=== PATIENT | male | born 1970 | race Caucasian/White ===

== ENCOUNTER 2020-12-24 07:02 | Outpatient (REF) | payer OTHER, SELFPAY ==
[2020-12-24 11:03] LABS: MANUAL DIFF FLAG NO
[2020-12-24 11:11] LABS: Basophils Absolute Auto 0.1 X10*3/uL (0.0-0.2); Basophils Percent Auto 1.1 % (0-2); Eosinophils Absolute Auto 0.4 X10*3/uL (0.0-0.4); Hemoglobin 14.3 g/dl (14.0-18.0); Imm Gran Abs Auto 0.02 X10*3/uL (0.00-0.03); Imm Gran Pct Auto 0.2 % (0.0-0.4); Lymphocytes Absolute Auto 2.6 X10*3/uL (1.2-4.9); Lymphocytes Percent Auto 31.8 % (20-40); Mean Corpuscular Hemoglobin 30.4 pg (27.0-33.0); Mean Corpuscular Volume 89.4 fL (80-98); Mean Platelet Volume 9.9 fL (9.4-12.4); Monocytes Absolute Auto 0.8 X10*3/uL (0.1-1.2); Monocytes Percent Auto 10.4 % (2-11); Neutrophils Absolute Auto 4.1 X10*3/uL (2.0-8.3); Neutrophils Percent Auto 51.5 % (45-73); Platelet Count 293 X10*3/uL (160-400); Red Cell Distribution Width 12.8 % (11.0-16.0)
[2020-12-24 11:22] LABS: Glucose Urine UA NEG (NEG); Leukocyte Esterase Urine NEG (NEG); Nitrite Urine NEG (NEG); Specific Gravity - Urine >= 1.030 (1.005-1.025); Urine Blood TRACE (NEG); Urine Ketones NEG (NEG); Urine Protein NEG (NEG-TRACE)
[2020-12-24 11:24] LABS: Appearance Urine CLEAR; Color Urine YELLOW
[2020-12-24 11:32] LABS: Alanine Aminotransferase 15 U/L (0-40); Albumin Level 4.5 g/dL (3.5-5.0); Alkaline Phosphatase 62 U/L (39-117); Anion Gap 12 (12-20); Aspartate Amino Transferase 14 U/L (5-37); Bilirubin Total 0.6 mg/dL (0.0-1.0); Blood Urea Nitrogen 14 mg/dL (9-16); Calcium 8.9 mg/dL (8.4-10.2); Carbon Dioxide 31 mmol/L (22-29); Chloride 104 mmol/L (96-108); Cholesterol 135 mg/dL; Estimated Glomerular Filt Rate > 60; Glucose Fasting 101 mg/dL (60-99); HDL Cholesterol 34 mg/dL; LDL Cholesterol Calculated 82 mg/dl; Potassium 4.3 mmol/L (3.3-5.1); Sodium 143 mmol/L (135-145); Total Protein 7.1 g/dL (6.5-8.0); Triglycerides 96 mg/dL
[2020-12-24 11:42] LABS: Mucus Urine TRACE /LPF; RBC Urine 0-2 /HPF (0); WBC Urine 0 /HPF (0-4)
[2020-12-24 11:55] LABS: Prostate Specific Antigen Scr 1.65 ng/mL (<0.05-4.0)
== END 2020-12-24 07:03 | disposition home or self-care (01) ==
LOC: HO.HMGCLDS 07:02
PROVIDERS: PCP Internal Medicine; Visit Provider Internal Medicine
DX: E78.5 Hyperlipidemia, unspecified (principal); F32.9 Major depressive disorder, single episode, unspecified; F41.9 Anxiety disorder, unspecified; I10 Essential (primary) hypertension
CPT/HCPCS: 36415; 80053; 80061; 81001; 84153; 85025

== ENCOUNTER 2022-11-14 06:04 | Outpatient (REF) | payer OTHER, SELFPAY ==
[2022-11-14 11:32] LABS: Appearance Urine Clear; Color Urine Yellow; Glucose Urine UA Negative (Negative); Leukocyte Esterase Urine Negative (Negative); Nitrite Urine Negative (Negative); UMIC TRIGGER UA YES; Urine Blood Trace (Negative); Urine Ketones Negative (Negative); Urine Protein Trace mg/dL (Neg-Trace)
[2022-11-14 11:35] LABS: Bacteria Urine None Seen (None Seen); Hyaline Casts Urine 0-2 /LPF (0-2); Squamous Epithelial Cell Urine 0-2 /HPF (0-2); WBC Urine 0-5 /HPF (0-5)
[2022-11-14 11:39] LABS: MANUAL DIFF FLAG NO
[2022-11-14 11:53] LABS: Basophils Absolute Auto 0.1 X10*3/uL (0.0-0.2); Basophils Percent Auto 1.4 % (0-2); Eosinophils Absolute Auto 0.3 X10*3/uL (0.0-0.4); Eosinophils Percent Auto 3.8 % (0-4); Hematocrit 43.5 % (42.0-52.0); Hemoglobin 14.2 g/dl (14.0-18.0); Imm Gran Abs Auto 0.02 X10*3/uL (0.00-0.03); Imm Gran Pct Auto 0.2 % (0.0-0.4); Lymphocytes Absolute Auto 2.6 X10*3/uL (1.2-4.9); Lymphocytes Percent Auto 30.2 % (20-40); Mean Corpuscular HGB Conc 32.6 g/dl (31.0-36.0); Mean Corpuscular Hemoglobin 28.6 pg (27.0-33.0); Mean Corpuscular Volume 87.5 fL (80.0-98.0); Mean Platelet Volume 10.1 fL (9.4-12.4); Monocytes Absolute Auto 0.8 X10*3/uL (0.1-1.2); Monocytes Percent Auto 9.7 % (2-11); Neutrophils Absolute Auto 4.8 x10*3/uL (2.0-8.3); Neutrophils Percent Auto 54.7 % (45-73); Platelet Count 283 X10*3/uL (160-400); Red Blood Count 4.97 X10*6/uL (4.60-5.80); Red Cell Distribution Width 13.2 % (11.0-16.0); White Blood Count 8.7 X10*3/uL (4.8-10.8)
[2022-11-14 12:25] LABS: Alanine Aminotransferase 16 U/L (0-40); Albumin Level 4.3 g/dL (3.5-5.0); Alkaline Phosphatase 66 U/L (39-117); Anion Gap 13 (12-20); Aspartate Amino Transferase 15 U/L (5-37); Bilirubin Total 0.8 mg/dL (0.0-1.0); Blood Urea Nitrogen 7 mg/dL (9-16); Carbon Dioxide 30 mmol/L (22-29); Chloride 104 mmol/L (96-108); Cholesterol 147 mg/dL; Estimated Glomerular Filt Rate > 60; Glucose Fasting 100 mg/dL (60-99); HDL Cholesterol 33 mg/dL; LDL Cholesterol Calculated 95 mg/dl; Sodium 143 mmol/L (135-145); Total Protein 6.9 g/dL (6.5-8.0); Triglycerides 97 mg/dL
[2022-11-14 12:27] LABS: PSA,Total (Free>4and<10) 3.68 ng/mL (0.00-4.00)
== END 2022-11-14 06:05 | disposition home or self-care (01) ==
LOC: HO.HMGCLDS 06:04
PROVIDERS: PCP Internal Medicine; Visit Provider Internal Medicine
DX: I10 Essential (primary) hypertension (principal); F41.9 Anxiety disorder, unspecified; F32.9 Major depressive disorder, single episode, unspecified; E78.5 Hyperlipidemia, unspecified; Z12.5 Encounter for screening for malignant neoplasm of prostate
CPT/HCPCS: 36415; 80053; 80061; 81001; 84153; 85025

== ENCOUNTER 2024-04-10 08:57 | Inpatient (IN) | payer OTHER, SELFPAY ==
[2024-04-10] VITALS (9 sets, daily range): BP systolic 133–178; BP diastolic 83–99; PULSE 61–72; RESP 16–18; TEMP 36.4–36.7; O2SAT 93–98; BMI 35.0
--- NOTE | ~2024-04-10 | CT_ITS ---
EXAMINATION: CT head for stroke CLINICAL INFORMATION: Reason for Exam dysarthria, gait issues, facial numbness COMPARISON: None. TECHNIQUE: Contiguous axial imaging was performed from the skull base to vertex without intravenous contrast. Sagittal and coronal reformatted images were obtained. This CT examination was performed using dose optimization techniques as appropriate, variously including the following: * Automated exposure control * Adjustment of mA and/or kV according to patient size (this includes techniques or standardized protocols for targeted exams where dose is matched to indication/reason for exam; i.e. extremities or head) Use of iterative reconstruction technique DLP: 743.33 mGy-cm FINDINGS: No acute osseous or soft tissue abnormality. The mastoids are clear. Complete opacification of the visualized right maxillary sinus. There is hyperostosis of the sinus wall, compatible with sequela of chronic sinusitis. There is no evidence of acute intracranial hemorrhage or territorial infarction. No abnormal mass effect or midline shift is seen. Pak to white matter differentiation is well preserved. No extra-axial fluid collections are identified. No hydrocephalus. No significant volume loss. Patchy periventricular and deep white matter hypoattenuation is consistent with moderate small vessel ischemic changes. Chronic infarct in the superior right frontal lobe. Chronic lacunar infarcts involving the left caudate head and left dorsal rosey. CT/CT head for stroke IMPRESSION: 1. No acute intracranial abnormality including hemorrhage, mass effect, hydrocephalus, or acute territorial edematous infarction. time of direct communication. 2. Moderate chronic microangiopathic white matter hypodensity, chronic right frontal lobe infarct, and chronic lacunar infarcts involving the left caudate and rosey. 3. Chronic right maxillary sinusitis Impression #1 and 2 was communicated to Angella Araiza MD on 04/10/2024 9:47 AM
--- NOTE | ~2024-04-10 | CT_ITS ---
EXAMINATION: CTA OF THE HEAD AND NECK CLINICAL INFORMATION: Dysarthria. Gait issues. Facial numbness. COMPARISON: Head CT on 04/10/2024. TECHNIQUE: Test bolus sequences followed by intravenous administration 70 mL of Omnipaque 350. Helical imaging was performed in the axial plane from the mediastinum to the skull vertex. Delayed postcontrast imaging of the head was also performed. The data was processed at the certified cytotechnologist's workstation for generation of MIP sequences. Three-dimensional volume rendered reformatted images were also generated at an offline 3-D workstation. Stenoses are assessed in accordance with NASCET criteria unless otherwise indicated. This CT examination was performed using dose optimization techniques as appropriate, variously including the following: *Automated exposure control *Adjustment of mA and/or kV according to patient size (this includes techniques or standardized protocols for targeted exams where dose is matched to indication/reason for exam; i.e. extremities or head) *Use of iterative reconstruction technique DLP: 743 mGy-cm. FINDINGS: CTA neck: The imaged aortic arch and origins of the great vessels are normal. The common carotid arteries are widely patent. The carotid bifurcations are relatively normal with mild atherosclerotic wall calcifications. Less than 50% stenosis at the origin of the left internal carotid artery with mild atheromatous disease. The cervical internal carotid arteries are otherwise normal in caliber. The vertebral arteries opacify normally and are of normal caliber. Mucosal opacification of the right maxillary sinus with chronic sclerotic wall thickening. Soft tissue abnormality extends into the right middle meatus as well Multilevel cervical spondylosis noted, more significant at the C5-C6 and C6-C7 levels with a reversal of the normal cervical lordosis. There are moderate degenerative changes of the temporomandibular joints. The imaged portions of the lungs are clear. CTA head: The intradural vertebral arteries and basilar artery are normal. There is a focal severe stenosis in the proximal P4 segment on the left side. Moderate focal stenosis also visible in the P3 segment of the right DRAPERY INSPECTOR. The internal carotid arteries are of normal caliber. Mild multifocal stenoses visible in the A2 segments bilaterally. 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 There is no abnormal parenchymal or leptomeningeal enhancement. The venous sinuses opacify normally. CT/CT angio head neck stroke IMPRESSION: No hemodynamically significant stenosis in the cervical vasculature. Severe focal stenosis in one of the proximal P4 branches arising from the left posterior cerebral artery. Moderate stenosis in the P3 segment of the right DRAPERY INSPECTOR. Mild multifocal stenoses in the A2 segments of the anterior cerebral arteries. 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 No large territorial infarction. The possibility of a focal acute ischemic process cannot be ruled out on the basis of this study. If there is a high-level suspicion for an underlying acute infarct, recommend further evaluation with a follow-up MRI of the brain. Mucosal opacification of the right maxillary sinus with soft tissue extending into the right middle meatus. Chronic sclerotic wall thickening. The possibility of an obstructing lesion at the right maxillary sinus ostium cannot be ruled out. Recommend follow-up ENT evaluation to guide further management.
--- NOTE | ~2024-04-10 | MR_ITS ---
EXAMINATION: MR BRAIN WITHOUT CONTRAST CLINICAL INFORMATION: Slurred speech. Left-sided weakness. Cerebrovascular accident. COMPARISON: CTA head and neck from 04/10/2024. TECHNIQUE: MRI of the brain was obtained using routine sequences without contrast. FINDINGS: Patchy regions of diffusion-weighted hyperintensity with slightly low to pseudonormalized values on the ADC map in the right tena radiata/lentiform nucleus as well as within the posterior limb of the left internal capsule. Associated T2 FLAIR hyperintensities. No evidence of hemorrhagic transformation. No additional restricted diffusion. No evidence of acute hemorrhagic products on heme-sensitive imaging. Small scattered foci of susceptibility artifact within the bilateral cerebral hemispheres and left cerebellar hemisphere consistent with petechial microhemorrhage. Chronic region of encephalomalacia in the right superior frontal gyrus. Chronic lacunar infarcts of the left caudate head, left lentiform nucleus, right thalamus, and rosey. Scattered and partially confluent periventricular, deep white matter, and brainstem T2 FLAIR hyperintensities consistent with moderate underlying microangiopathy. Proportional prominence of the ventricles and sulcal spaces without evidence of obstructive hydrocephalus. No abnormal mass effect. No midline shift. Normal appearance of the pituitary gland. Normal positioning of the cerebellar tonsils. Normal arterial and venous vascular flow voids are present. Normal, homogeneous marrow signal. Complete opacification of the right maxillary sinus with restricted diffusion of the central contents. Mild mucosal thickening of the remaining paranasal sinuses. Prominent leftward nasal septal deviation. No signal abnormalities within the mastoids. Moderate degenerative arthropathy of the temporomandibular joints. MR/MR head/brain wo con IMPRESSION: 1. Late acute to subacute infarcts of the right tena radiata/lentiform nucleus and posterior limb of the left internal capsule. No evidence of hemorrhagic transformation. 2. Chronic region of encephalomalacia in the right superior frontal gyrus. Chronic lacunar infarcts of the deep nuclei and brainstem. Moderate underlying microangiopathy and generalized cerebral volume loss. 3. Right maxillary sinus disease with characteristics of active sinusitis.
--- NOTE | 2024-04-10 07:00 | CA_ITS ---
Transthoracic Echocardiogram Patient (Last, First, Middle): Saman Browne, Gender: Male Date of : 1970 Age: 53 Procedure Date: 04/10/2024 Procedure Type: Transthoracic Echocardiogram Location: ER Height: 180.34 cm Weight: 113.85 kg BSA: 2.32 m2 Heart Rate: 64 bpm BP: 162 / 88 mmHg Anodiser: ADMAS Constantino MD: Lynn PIÑA Human Resources Hr Representative: Gordo Baltazar MD Symptoms: ?CVA Study Quality: Adequate w/Contrast ECG Rhythm: Sinus Conclusions: - 1. Mildly reduced LV ejection fraction 45-50% with mild LVH 2. Cardiac valvular Dopplers within normal limits 3. Upper limits of normal ascending aortic size 4. No gross pericardial effusion Findings Procedure Information Contrast agent, definity, is being given per protocol without apparent complications. Left Ventricle Normal left ventricular cavity size. There is mildly increased left ventricular wall thickness. The left ventricular systolic function is mildly decreased. The visually estimated ejection fraction is between 45-50%. There is moderate septal asymmetric hypertrophy. Wall Motion Rest Echo Findings The basal inferoseptal segment is hypokinetic. The basal inferior segment is akinetic. All other scored wall segments showed normal motion. Right Ventricle Normal right ventricular cavity size and systolic function. Atria The left atrium is likely dilated. There is no evidence of interatrial shunt by agitated saline. The right atrium is normal in size. Negative Contrast in RA?. Aortic Valve Normal aortic valve structure and function. There is no aortic valve stenosis. The peak aortic velocity is 1.76 m/s with a calculated peak gradient of 12 mmHg. The mean gradient is 8 mmHg. The aortic valve area is 2.48 cm2. There is no aortic valve regurgitation. Mitral Valve There is mild anterior and moderate posterior mitral leaflet thickening. There is mild mitral annular calcification. There is trace mitral valve regurgitation. There is no mitral valve stenosis. Pulmonic Valve The pulmonic valve is likely normal. Tricuspid Valve Normal tricuspid valve structure. Tricuspid regurgitation envelope is inadequate for calculation of right ventricular systolic pressure. Normal right atrial pressure. Great Vessels The pulmonary artery was not well visualized. Small plaque is seen in the sino tubular ridge. Venous The inferior vena cava is normal in size and collapses greater than 50% with inspiration. Pericardium/Pleural There is no evidence of pericardial effusion. Prior Study Comparison No significant change compared to prior study dated: 01/23/2019. Measurements 2D Linear Measurements IVSd: 1.53 0.6-0.9/0.6-1.0 cm LVIDd: 5.69 3.9-5.3/4.2-5.9 cm LVIDd Index: 2.45 2.4-3.2/2.2-3.1 cm/m2 LVIDs: 4.30 2.0-3.6 cm LVPWd: 1.25 0.7-1.1 cm LA Diam: 3.70 2.7-3.8/3.0-4.0 cm LAIDs Index: 1.59 1.5-2.3 cm/m2 LV Mass: 440.36 67-162/88-224 g LV Mass Index: 189.81 43-95/49-115 g/m2 LVOT Diam: 2.40 3.0+(-)1.3 cm 2D Systolic Function EF 4C: 47.40 >55% EF 2C: 48.40 >55% EF BiP: 47.30 >55% Mitral Valve MV Pk E: 0.65 MV PK A: 0.66 MV Decel Time: 237.00 E/A: 1.00 E'Lateral: 6.92 E'Medial: 6.31 E/E' Med: 10.30 E/E' Lat: 9.40 PHT: 69.00 MVA PHT: 3.19 Decel [place]: 2.75 Aortic Valve AoV Pk Yamil: 1.76 AoV Mn Yamil: 1.33 AoV VTI: 0.39 AoV Pk Grad: 12.00 Aov Mn Grad: 8.00 AV Cont.VTI: 2.48 LVOT LVOT Pk Yamil: 1.07 LVOT Mn Yamil: 0.73 LVOT VTI: 0.21 LVOT Pk Grad: 5.00 LVOT Mn Grad: 3.00 LVOT Diam: 2.40 LVOT Area: 4.52 Diastolic Function MV Pk E: 0.65 MV Pk A: 0.66 E/A: 1.00 E'Medial: 6.31 E/E' Med: 10.30 E' Laterial: 6.92 E/E' Lat: 9.40 Right Ventricle TAPSE (mm): 22.90 TVS' Yamil: 12.40 Tricuspid Valve RA Press: 3.00 Great Vessels Aorta Sinus of Valsalva: 3.80 2.0-3.5 cm Ao Asc: 3.50 2.1-3.4 cm Pulmonary Valve PV Pk Yamil: 1.15 Peak PV Grad: 5.00 Updated in Other Vendor System with Status of Final Gordo Baltazar MD electronically signed on 04/10/2024 4:23:42 PM with status of Final
--- NOTE | 2024-04-10 09:09 | ECG_ITS ---
Test Reason : STROKE SYMPTOMS Blood Pressure : / mmHG Vent. Rate : 065 BPM Atrial Rate : 065 BPM P-R Int : 152 ms QRS Dur : 100 ms QT Int : 428 ms P-R-T Axes : 050 020 176 degrees QTc Int : 445 ms Normal sinus rhythm ST & T wave abnormality, consider inferolateral ischemia Abnormal ECG When compared with ECG of 17-JUL-2019 17:14, No significant change was found Referred By: Angella Araiza Electronically Signed By:ZULAY BARRETT MD
[2024-04-10 09:22] LABS: MANUAL DIFF FLAG NO
[2024-04-10 09:23] LABS: Basophils Absolute Auto 0.1 X10*3/uL (0.0-0.2); Basophils Percent Auto 0.8 % (0-2); Eosinophils Absolute Auto 0.3 X10*3/uL (0.0-0.4); Eosinophils Percent Auto 2.7 % (0-4); Hematocrit 41.2 % (42.0-52.0); Hemoglobin 14.1 g/dl (14.0-18.0); Imm Gran Abs Auto 0.02 X10*3/uL (0.00-0.03); Imm Gran Pct Auto 0.2 % (0.0-0.4); Lymphocytes Percent Auto 31.1 % (20-40); Mean Corpuscular HGB Conc 34.2 g/dl (31.0-36.0); Mean Corpuscular Volume 84.8 fL (80.0-98.0); Mean Platelet Volume 8.9 fL (9.4-12.4); Monocytes Absolute Auto 0.9 X10*3/uL (0.1-1.2); Monocytes Percent Auto 8.8 % (2-11); Neutrophils Absolute Auto 5.5 x10*3/uL (2.0-8.3); Neutrophils Percent Auto 56.4 % (45-73); Platelet Count 272 X10*3/uL (160-400); Red Blood Count 4.86 X10*6/uL (4.60-5.80); White Blood Count 9.7 X10*3/uL (4.8-10.8)
[2024-04-10 09:29] LABS: Prothrombin Time 11.9 SEC (11.1-13.3)
[2024-04-10 09:31] LABS: Partial Thromboplastin Time 31.5 SEC (26.0-36.8)
--- NOTE | 2024-04-10 09:34 | ED_ITS ---
HPI - Neuro Symptoms/Deficit General Chief Complaint: Stroke Stated Complaint: quest of stroke systems Time Seen by Provider: 04/10/24 09:03 Source: patient Mode of arrival: ambulatory Limitations: no limitations History of Present Illness ED Provider: FLORES OROZCO Narrative: 53 yo male with PMH of HTN notes he woke up this morning at 6/630am feeling off he felt weaker than usual and noted that he felt like he was leaning to the right and his face on the right felt tingly. No recent trauma or falls. When he got to work his co-workers noted his speech was slurred so they told him to come to the ED. He has never had this happen before. He did get up at 230am to urinate but he states he was too sleepy to notice anything. He woke up with symptoms this AM and new something was off. Onset (ago): unknown Last Observed Normal: 02:30 Timing confirmed by: other (self) Location: right face, dysarthria and right leg History of same: No Severity: mild Quality: weak and tingling Relieving factors: none Exacerbating factors: none Context: gradual onset On Anticoagulants: No Associated symptoms: denies other symptoms Treatments Prior to Arrival: none Related Data Previous Rx's ?Medication ?Instructions ?Recorded buspirone 10 mg tablet 10 mg PO TID #90 tabs 02/02/21 amlodipine 10 mg tablet 10 mg PO DAILY #90 tabs 05/01/22 atorvastatin 20 mg tablet 20 mg PO DAILY #90 tabs 05/01/22 lisinopril 40 mg tablet 40 mg PO DAILY #90 tabs 05/01/22 nebivolol 20 mg tablet (Bystolic) 20 mg PO DAILY #90 tabs 05/01/22 triamterene 37.5 1 tab PO DAILY #90 tabs 05/01/22 mg-hydrochlorothiazide 25 mg tablet Allergies Allergy/AdvReac Type Severity Reaction Status Date / Time citalopram AdvReac Unknown diarrhea Verified 04/10/24 09:01 Review of Systems 2 Review of Systems: Constitutional : No Fever, No Chills, No Fatigue ENT/Mouth : No sore throat, No Rhinorrhea Eyes: No Eye Pain, No Swelling, No Redness Cardiovascular : No Chest Pain, No SOB, No Dyspnea on Exertion Respiratory : No Cough, No Sputum Gastrointestinal : No Nausea, No Vomiting, No Diarrhea, No abdominal Pain Genitourinary : No Dysuria, No Urinary Frequency, No Hematuria, Musculoskeletal : No joint pain, No Myalgias, No Joint Swelling Skin : No Skin Lesions, No rash Neuro : pos Weakness, pos Numbness, No Dizziness, no Headache Psych : No Anxiety/Panic, No Depression All other systems reviewed and are negative [facility] Past Medical History Attestation statement: The following information was validated with the patient. Source: old records reviewed Medical History Annual physical exam Hyperlipidemia HTN (hypertension) Anxiety and depression Surgical History S/P cardiac cath History of meniscal tear Family History Family History Father HTN (hypertension) Stroke Mother Alcoholism Maternal Grandfather No problems noted. Maternal Grandmother No problems noted. Paternal Grandfather No problems noted. Paternal Grandmother Stroke Social History Social History Housing: Apartment Alcohol intake: current Alcohol intake frequency: holidays/special occasions only Patient Tobacco Use Status: Current everyday Tobacco user Tobacco use type: Cigarette Cigarettes Per Day: 10 Years Smoked: 20 e-Cigarette/Vaping Use: Never Used Advance Directives: No Advance Directives Information Provided: Yes service: No Current occupational status: employed Cognitive needs: No Hearing needs: No Vision needs: Yes Physical Exam 2 Vital Signs: Vital Signs: Last Vital Signs Temp 98 F 04/10/24 09:00 Pulse 65 04/10/24 10:10 Resp 16 04/10/24 10:10 BP 156/83 H 04/10/24 10:10 Pulse Ox 96 04/10/24 10:10 O2 Del Method Room Air 04/10/24 10:10 BMI result Body Mass Index 35.0 Appearance: Alert. Oriented X3. No acute distress. Eyes: Pupils equal, round and reactive to light. ENT: Pharynx normal. Neck: Normal inspection. Neck supple. CVS: Normal heart rate and rhythm. Pulses normal. Respiratory: No respiratory distress. Breath sounds normal. Abdomen: Soft and nontender. Skin: Skin warm and dry. Normal skin color. Normal skin turgor. Extremities: No lower extremity edema. No calf ttp Neuro: Oriented X 3. slurred speech, tongue deviates to the left, paresthesias to the right side of face, reports his legs feel weak, fine arts model intact Medications Administered Discontinued Medications Generic Name Dose Route Start Last Admin Trade Name Arcadio PRN Reason Stop Dose Admin Iohexol 100 ml 04/10/24 09:52 04/10/24 09:53 Iohexol 350 Mg/Ml 100 Ml Infus..Btl IV 04/10/24 09:53 70 ml ONCE ONE Administration Medical Decision Making Medical Decision Making [facility] Narrative: 53 yo male with PMH of HTN here with c/o wake up stroke presenting 3 to 3.5 hours after waking - NIH is 2 at this time will need labs, CT scan CTA and EKG. He is not a candidate for TNK given last known well was 230am and even then he is not really sure he felt okay as he was too sleepy to tell if something was wrong. At this time labs, stroke protocol CT scan and and CTA. Differential Diagnosis Differential Diagnoses: The differential diagnosis associated with the presentation includes stoke, ICH Admission/Observation Consideration of admission/observation: Escalation of care including admission/observation considered admit for stroke work up Consult Healthcare Provider Management of the patient was discussed with: Antique Repairer (Adrián castro - hold off MRI right now NIH 2 unlikely to give TNK and not in window) Lab Data [facility] Lab Attestation statement: I reviewed the patient's lab results. 04/10/24 09:16 04/10/24 09:16 Labs: Lab Results 04/10/24 04/10/24 04/10/24 Range/Units 09:16 10:14 10:15 WBC 9.7 (4.8-10.8) X10*3/uL RBC 4.86 (4.60-5.80) X10*6/uL Hgb 14.1 (14.0-18.0) g/dl Hct 41.2 L (42.0-52.0) % MCV 84.8 (80.0-98.0) fL MCH 29.0 (27.0-33.0) pg MCHC 34.2 (31.0-36.0) g/dl RDW 13.0 (11.0-16.0) % Plt Count 272 (160-400) X10*3/uL MPV 8.9 L (9.4-12.4) fL Immature Gran % (Auto) 0.2 (0.0-0.4) % Neut % (Auto) 56.4 (45-73) % Lymph % (Auto) 31.1 (20-40) % [place] % (Auto) 8.8 (2-11) % Eos % (Auto) 2.7 (0-4) % Baso % (Auto) 0.8 (0-2) % Lymph # (Auto) 3.0 (1.2-4.9) X10*3/uL [place] # (Auto) 0.9 (0.1-1.2) X10*3/uL Eos # (Auto) 0.3 (0.0-0.4) X10*3/uL Baso # (Auto) 0.1 (0.0-0.2) X10*3/uL Abs Immat Gran (auto) 0.02 (0.00-0.03) X10*3/uL Absolute Neuts (auto) 5.5 (2.0-8.3) x10*3/uL Absolute Nucleated RBC 0.000 (0.0-0.012) X10*3/uL Nucleated RBC % (auto) 0.0 (0.0-0.2) /100WBC PT 11.9 (11.1-13.3) SEC INR 1.0 (0.9-1.1) APTT 31.5 (26.0-36.8) SEC Sodium 141 (135-145) mmol/L Potassium 4.1 (3.3-5.1) mmol/L Chloride 103 (96-108) mmol/L Carbon Dioxide 27 (22-29) mmol/L Anion Gap 15 (12-20) BUN 15 (9-16) mg/dL Creatinine 0.82 (0.5-1.4) mg/dL Estim Creat Clear Calc 133.7 Estimated GFR > 60 POC Glucose 101 (60-115) mg/dL Random Glucose 105 (60-115) mg/dL Estimat Average Glucose 120 mg/dL Hemoglobin A1c % 5.8 (<6.0) % Calcium 9.6 D (8.4-10.2) mg/dL Magnesium 1.9 (1.6-2.6) mg/dL Total Bilirubin 0.5 (0.0-1.0) mg/dL Direct Bilirubin 0.1 (0.0-0.5) mg/dL AST 34 (5-37) U/L ALT 35 (0-40) U/L Alkaline Phosphatase 68 (39-117) U/L Troponin I High Sens 5.8 (<3.5-35.0) ng/L Total Protein 7.8 (6.5-8.0) g/dL Albumin 4.4 (3.5-5.0) g/dL Triglycerides 181 H (<150) mg/dL Cholesterol 113 (<200) mg/dL LDL Cholesterol, Calc 52 (<100) mg/dL HDL Cholesterol 25 L (>40) mg/dL Urine Color Yellow Urine Appearance Clear Urine pH 6.5 (5.0-9.0) Ur Specific Only >= 1.030 H (1.005-1.025) Urine Protein Negative (Neg-Trace) mg/dL Urine Glucose (UA) Negative (Negative) mg/dL Urine Ketones Negative (Negative) mg/dL Urine Blood Negative (Negative) Urine Nitrite Negative (Negative) Ur Leukocyte Esterase Negative (Negative) Ethyl Alcohol < 10 mg/dL Independent Interpretation I performed an independent interpretation of an: EKG and CT Scan (no ICH ) Interpretation: Rate: 65 Rhythm: NSR [place]: normal , LVH Normal P waves. Normal EYAL. Normal QRS complex. ST T wave : no YULISA, inverted t waves V5, V6, I and aVL, II qTC: 445 prior studies: no change from 2018 The study has been interpreted contemporaneously by me. . Radiology Impression Discussion of test interpretation with radiology: I discussed test interpretation with the radiologist and I have reviewed the radiologist's reading. Radiologist Impression: 946am - no ICH old infarcts noted External Record Review External record reviewed: Inpatient record NIH Stroke Scale Internal: Initial- Upon Arrival Level of Consciousness: Alert Level of Consciousness Questions: Answers both questions correctly Level of Consciousness Commands: Performs both tasks correctly Best Gaze: Normal Visual: No visual loss Facial Palsy: Normal Motor Arm (Right): No drift Motor Arm (Left): No drift Motor Leg (Right): No drift Motor Leg (Left): No drift Limb Ataxia: Absent Sensory: Mild to moderate sensory loss Best Language: No aphasia Dysarthia: Mild to moderate dysarthria Extinction and Inattention: No abnormality Score: 2 Critical Care Time Critical Care Time Critical Care Time: Yes Total Critical Care Time: 35 Attestation: consult, stroke protocol, admission I attest to this time spent taking care of the patient Discharge Plan Discharge Clinical Impression: Cerebrovascular accident Patient Disposition: Admitted As Inpatient Prescriptions: No Action buspirone 10 mg tablet 10 mg PO TID Qty: 90 1RF amlodipine 10 mg tablet 10 mg PO DAILY Qty: 90 3RF atorvastatin 20 mg tablet 20 mg PO DAILY Qty: 90 3RF lisinopril 40 mg tablet 40 mg PO DAILY Qty: 90 0RF Bystolic 20 mg tablet 20 mg PO DAILY Qty: 90 3RF triamterene-hydrochlorothiazid 37.5-25 mg tablet 1 tab PO DAILY Qty: 90 3RF Print Language: Icelandic
[2024-04-10 09:45] LABS: Alanine Aminotransferase 35 U/L (0-40); Albumin Level 4.4 g/dL (3.5-5.0); Alkaline Phosphatase 68 U/L (39-117); Anion Gap 15 (12-20); Aspartate Amino Transferase 34 U/L (5-37); Bilirubin Direct 0.1 mg/dL (0.0-0.5); Bilirubin Total 0.5 mg/dL (0.0-1.0); Blood Urea Nitrogen 15 mg/dL (9-16); Calcium 9.6 mg/dL (8.4-10.2); Carbon Dioxide 27 mmol/L (22-29); Chloride 103 mmol/L (96-108); Cholesterol 113 mg/dL (<200); Creatinine Clr Calc Pharmacy 133.7; Estimated Glomerular Filt Rate > 60; Ethanol < 10 mg/dL; Glucose Random 105 mg/dL (60-115); HDL Cholesterol 25 mg/dL (>40); LDL Cholesterol Calculated 52 mg/dL (<100); Magnesium 1.9 mg/dL (1.6-2.6); Potassium 4.1 mmol/L (3.3-5.1); Sodium 141 mmol/L (135-145); Total Protein 7.8 g/dL (6.5-8.0); Triglycerides 181 mg/dL (<150)
[2024-04-10 09:52] LABS: Troponin-I High Sensitivity 5.8 ng/L (<3.5-35.0)
[2024-04-10] MEDS: iohexoL 350 MG/ML 100 ML INFUS..BTL IV (09:53)
[2024-04-10 09:58] LABS: Estimated Average Glucose 120 mg/dL; Hemoglobin A1C 151.6837 umol/L; Hemoglobin A1c % 5.8 % (<6.0)
[2024-04-10 10:21] LABS: Glucose, Whole Blood 101 mg/dL (60-115)
[2024-04-10 10:24] LABS: Appearance Urine Clear; Color Urine Yellow; Glucose Urine UA Negative (Negative); Leukocyte Esterase Urine Negative (Negative); Nitrite Urine Negative (Negative); PH 6.5 (5.0-9.0); Specific Gravity - Urine >= 1.030 (1.005-1.025); Urine Blood Negative (Negative); Urine Ketones Negative (Negative); Urine Protein Negative (Neg-Trace)
[2024-04-10 10:37] LABS: Amphetamine Screen Urine Not Detected (Not Detect); Barbiturates, Urine Not Detected (Not Detect); Benzodiazepines Screen Urine Not Detected (Not Detect); Buprenorphine Scr Not Detected (Not Detect); Cannabinoid Screen Urine Not Detected (Not Detect); Cocaine Screen Urine Not Detected (Not Detect); Fentanyl, urine Not Detected (Not Detect); Methadone Screen, Urine Not Detected (Not Detect); Opiate Screen Urine Not Detected (Not Detect); Oxycodone Screen Urine Not Detected (Not Detect); Phencyclidine Screen Urine Not Detected (Not Detect)
[2024-04-10] MEDS: Aspirin 325 MG TABLET PO (10:45)
--- NOTE | 2024-04-10 12:17 | PHA.MEDREC ---
Addendum entered by Jessica Sosa [facility] 04/10/24 13:50: spoke to pt again, he was not sure of names but provided a phone number to a family member who had the Rx bottles in front of him and read off names, doses and frequencies. Original Note: Pharmacy Consult ? Medication Reconciliation Pharmacy has completed the medication reconciliation. Spoke to Patient to confirm meds. Patient states he doesn't know what medication he takes without looking at his bottles. Patient looked at the [facility] pat and confirmed Amlodipine 10 mg Daily, Atorvastatin 20 mg daily, and Triamterene 37.5 mg HCT 25 mg daily. Called Patients contact Yousuf Maddox [phone] to see if she could confirm all meds, however the phone number has been disconnected. Called [facility] in [place] [phone] to verify med list. [employer] states patient hasn't picked up any medication since 11-03-2022. wasn't able to confirm Buspirone 10 mg tid, Bystolic 20 mg daily and Lisinopril 40 daily. Only left on what patient states he is taken.
--- NOTE | 2024-04-10 12:51 | P.HPHOSP_ITS ---
History of Present Illness Date of Service: 04/10/24 Attending physician on admission: Bob Osbron Chief Complaint: Right-sided weakness Pt is a 53-year-old male with a PMH significant for HTN, HLD, cocaine-associated SD s/p cardiac cath in 2019, and alcohol use disorder 3 years sober who presents to the ED with?slurred speech and right facial numbness since this morning. Pt reports waking this morning and finding that he could not speak correctly and the right side of his face felt numb. At first thought it might be the flu or a cold so went to work where his coworkers noted he was having significantly slurred speech and sent him to the ED for further evaluation. Patient also reports having some difficulty swallowing and delayed thinking. Reports his speech has improved some especially when he speaks slowly, though right side of his face continues to be numb. 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 Also had some difficulty with walking yesterday, saying he kept hitting his left shoulder on day and doorways. Apparently did not think much of this and did not seek medical evaluation. No headache or acute vision changes. Denies numbness or tingling in extremities. No chest pain/pressure, palpitations. Denies fever, chills, nausea, vomiting, abdominal pain. Patient has been sober of cocaine and alcohol for the past 3-4 years. Attempting to quit cigarettes but still smoking half a pack daily. In the ED pt was hypertensive up to 156/83, vitals otherwise stable and WNL. Labs were significant for elevated triglycerides of 181 and HDL low at 25, otherwise grossly unremarkable. No leukocytosis. Stable H&H. No significant electrolyte abnormalities. Renal and hepatic function WNL. Troponin 5.8. UA negative for UTI. Tox screen negative. CT?of head showed no acute intracranial abnormality including hemorrhage, mass effect, hydrocephalus, or acute territorial edematous infarction. Did show moderate chronic microangiopathic white matter hypodensity, chronic right frontal lobe infarct, and chronic lacunar infarcts involving the left caudate and rosey. CTA of head found no hemodynamically significant stenosis in cervical vasculature, but showed severe focal stenosis in left posterior cerebral artery, moderate stenosis and P3 segment of right MINERAL ENGINEER, and mild multifocal stenosis of the a 2 segments of the anterior cerebral arteries. 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 Other findings include mucosal opacification of right maxillary sinus with soft tissue extending into the right middle meatus, concerning for possible obstructing lesion at right maxillary sinus. EKG demonstrated normal sinus rhythm with T-wave inversions in V5, V6, I, II, and aVL. Pt was treated with aspirin. Pt will be admitted to the hospital for slurred speech, right facial numbness, and left-sided weakness concerning for acute CVA. Review of Systems 2 Review of Systems: Slurred speech Difficulty swallowing Right facial numbness Diminished left store team leader Left-sided imbalance No headache or acute vision changes Denies chest pain/, palpitations No difficulty breathing Denies fever, chills, nausea, vomiting, abdominal pain PMFSH Medical History Alcohol use disorder Cocaine use disorder Myocardial infarction Annual physical exam Hyperlipidemia HTN (hypertension) Anxiety and depression Family History Father HTN (hypertension) Stroke Mother Alcoholism Maternal Grandfather No problems noted. Maternal Grandmother No problems noted. Paternal Grandfather No problems noted. Paternal Grandmother Stroke Surgical History S/P cardiac cath History of meniscal tear Social History Household Members: Family Housing: Apartment Do you presently have visiting nurse or other home services: No Alcohol intake: current Alcohol intake frequency: other Alcohol type: beer Patient Tobacco Use Status: Current everyday Tobacco user Tobacco use type: Cigarette Cigarettes Per Day: 10 Years Smoked: 20 Smoked in Last 30 Days: Yes e-Cigarette/Vaping Use: Never Used Patient Interested in Nicotine Replacement: Yes Use of substances other than those prescribed or required for medical reasons: No Currently Displaying Signs/Symptoms of Drug Intoxication Withdrawal: No Have you been hit, kicked, punched, or otherwise hurt by someone within the past year? If so, by whom?: No Do you feel safe in your current relationship?: Yes Is there a partner from a previous relationship who is making you feel unsafe now?: No Are you made to feel afraid or neglected: No Advance Directives: No Advance Directives Information Provided: Yes Do you have a plan to hurt others: No Plan Recently lost weight without trying: No Nutrition Risks: No Nutritional Risk Poor oral hygiene: No service: No Current occupational status: employed Cognitive needs: No Hearing needs: No Vision needs: Yes Meds Allergies Allergy/AdvReac Type Severity Reaction Status Date / Time citalopram AdvReac Unknown diarrhea Verified 04/10/24 09:01 Home Medications ?Medication ?Instructions ?Recorded ?Confirmed ?Last Taken ?Type buspirone 5 mg tablet 5 mg PO TID 04/10/24 04/10/24 Unknown History lisinopril 40 mg tablet 40 mg PO DAILY 04/10/24 04/10/24 Unknown History nebivolol 20 mg tablet 20 mg PO DAILY 04/10/24 04/10/24 Unknown History Physical Exam 2 Vital Signs and Narrative: Vital Signs: Last Vital Signs Temp 98.1 F 04/10/24 12:18 Pulse 61 04/10/24 12:18 Resp 18 04/10/24 12:18 BP 151/87 H 04/10/24 12:18 Pulse Ox 96 04/10/24 12:18 O2 Del Method Room Air 04/10/24 12:18 BMI result Body Mass Index 35.0 Constitutional: Alert, in no acute distress. Mental Status: Oriented to person, place and time. Eyes: Pupils are equal, round, and reactive to light. Ear, Nose, and Throat: Oropharynx clear, mucous membranes moist. Ears and nose without deformities. Trachea midline. Respiratory: Clear to auscultation bilaterally. No wheezing, rales, or rhonchi. Cardiovascular: S1, S2 regular. No murmurs, rubs, or gallops. Gastrointestinal: Abdomen soft, non-tender, non-distended. Normal bowel sounds. Neurologic: Minor slurred speech. No facial droop or tounge deviation noted. Diminished sensation to light touch of right face. Preserved sensation to light touch of upper and lower extremities bilaterally. Diminished 4/5 left store team leader. Strength of upper and lower extremities appears equal and symmetrical bilaterally . Skin: Warm, dry. Musculoskeletal: No cyanosis or clubbing. Extremities: No edema. Psychiatric: Normal mood and affect. Results Labs 04/10/24 09:16 04/10/24 09:16 Labs: Laboratory Results - last 24 hr 04/10/24 04/10/24 04/10/24 09:16 10:14 10:15 MCV 84.8 MCH 29.0 MCHC 34.2 RDW 13.0 Plt Count 272 MPV 8.9 L Immature Gran % (Auto) 0.2 Neut % (Auto) 56.4 Lymph % (Auto) 31.1 Cavalier % (Auto) 8.8 Eos % (Auto) 2.7 Baso % (Auto) 0.8 Lymph # (Auto) 3.0 Cavalier # (Auto) 0.9 Eos # (Auto) 0.3 Baso # (Auto) 0.1 Abs Immat Gran (auto) 0.02 Absolute Neuts (auto) 5.5 Absolute Nucleated RBC 0.000 Nucleated RBC % (auto) 0.0 PT 11.9 INR 1.0 APTT 31.5 Anion Gap 15 Estim Creat Clear Calc 133.7 Estimated GFR > 60 POC Glucose 101 Random Glucose 105 Estimat Average Glucose 120 Hemoglobin A1c % 5.8 Calcium 9.6 D Magnesium 1.9 Total Bilirubin 0.5 Direct Bilirubin 0.1 AST 34 ALT 35 Alkaline Phosphatase 68 Troponin I High Sens 5.8 Total Protein 7.8 Albumin 4.4 Triglycerides 181 H Cholesterol 113 LDL Cholesterol, Calc 52 HDL Cholesterol 25 L Urine Color Yellow Urine Appearance Clear Urine pH 6.5 Ur Specific [place] >= 1.030 H Urine Protein Negative Urine Glucose (UA) Negative Urine Ketones Negative Urine Blood Negative Urine Nitrite Negative Ur Leukocyte Esterase Negative Urine Opiates Screen Not Detected Ur Buprenorphine Scrn Not Detected Ur Oxycodone Screen Not Detected Urine Methadone Screen Not Detected Urine Fentanyl Screen Not Detected Ur Barbiturates Screen Not Detected Ur Phencyclidine Scrn Not Detected Ur Amphetamines Screen Not Detected U Benzodiazepines Scrn Not Detected Urine Cocaine Screen Not Detected U Marijuana (THC) Screen Not Detected Ethyl Alcohol < 10 Imaging Radiologist's Impressions: Impressions Head CT 04/10/24 09:31 IMPRESSION: 1. No acute intracranial abnormality including hemorrhage, mass effect, hydrocephalus, or acute territorial edematous infarction. time of direct communication. 2. Moderate chronic microangiopathic white matter hypodensity, chronic right frontal lobe infarct, and chronic lacunar infarcts involving the left caudate and rosey. 3. Chronic right maxillary sinusitis Impression #1 and 2 was communicated to Angella Araiza MD on 04/10/2024 9:47 AM Head/Neck CTA 04/10/24 09:51 IMPRESSION: No hemodynamically significant stenosis in the cervical vasculature. Severe focal stenosis in one of the proximal P4 branches arising from the left posterior cerebral artery. Moderate stenosis in the P3 segment of the right MINERAL ENGINEER. Mild multifocal stenoses in the A2 segments of the anterior cerebral arteries. 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 No large territorial infarction. The possibility of a focal acute ischemic process cannot be ruled out on the basis of this study. If there is a high-level suspicion for an underlying acute infarct, recommend further evaluation with a follow-up MRI of the brain. Mucosal opacification of the right maxillary sinus with soft tissue extending into the right middle meatus. Chronic sclerotic wall thickening. The possibility of an obstructing lesion at the right maxillary sinus ostium cannot be ruled out. Recommend follow-up ENT evaluation to guide further management. Assessment and Plan (1) Left-sided weakness: Status: Acute Plan Pt is a 53-year-old male with a PMH significant for HTN, HLD, cocaine-associated SD s/p cardiac cath in 2019, and alcohol use disorder 3 years sober who presents to the ED with?slurred speech and right facial numbness since this morning. Pt will be admitted to the hospital for slurred speech, right facial numbness, and left-sided weakness concerning for acute CVA. Slurred speech, right facial numbness, left-sided weakness Concerning for CVA CT of head negative for acute intracranial abnormality, but showing chronic lacunar infarcts CTA of head/neck showing severe left posterior cerebral artery stenosis, moderate right MINERAL ENGINEER stenosis, and mild anterior cerebral artery stenosis Pt not back to baseline Aspirin 81 mg daily Increase atorvastatin 40 mg daily MRI of head/brain Echocardiogram with bubble study PT/OT and speech evaluation Neurology consult Cardiac diet Monitor on telemetry HTN Hold amlodipine, lisinopril, nebivolol, and tramterene-hydrochlorothiazide for permissive hypertension for now Resume as warranted DNR/DNI, verified with pt Attending:?Dr. Osborn DVT Prophylaxis: Lovenox Pt will require a hospitalization of at least two nights for treatment and further evaluation of slurred speech, right facial numbness, and left-sided weakness concerning for acute CVA. Pt will require close monitoring of cardiac function, further imaging/workup, and specialist consultation with neurology and PT/OT. Quality Stroke Does the patient have a stroke diagnosis?: Yes Reason for No Anti-thrombotic by Day Two: Contraindicated (Pt outside of tNK therapeutic window) VTE Prior VTE?: No VTE Risk Level:: Medical - moderate - high VTE Device Contraindication: Treatment Not Indicated VTE Drug Contraindication: N/A - Med Ordered
[2024-04-10] MEDS: Nicotine 21 MG PATCH.TD24 TRANSDERMA (14:17)
[2024-04-10] MEDS: Enoxaparin Sodium 40 MG/0.4 ML SYRINGE SUBCUT (14:18)
[2024-04-10] MEDS: 0.9 % Sodium Chloride Flush 3 ML SYRINGE IVFLUSH (14:26)
--- NOTE | 2024-04-10 15:40 | MHC.STROKE ---
Met with patient in ED bed 11 while he was undergoing Echo. Pt awake, alert and oriented x 3. Pt reports that he woke this am around 6:30 and wasn't feeling right. He reports tingling to his face and slurred speech. He denies feeling unwell yesterday. States I was tired but that's it . Patient states that he got up around 2am to use the bathroom but was too groggy to notice if anything was off. When he went to work this am, he said that his boss told him to go to the hospital because his speech was funny. Pt did report that he noticed his speech off this am when he woke up. Stroke Education pamphlet reviewed with patient. Brain visual card reviewed with patient. Plan is for admission and MRI. Pt agreeable to plan. Will continue to assist as needed
[2024-04-10] MEDS: Atorvastatin Calcium 40 MG TABLET PO (16:34)
[2024-04-10] MEDS: Acetaminophen 325 MG TABLET 650 MG PO (19:38)
[2024-04-11] VITALS (8 sets, daily range): BP systolic 136–177; BP diastolic 78–100; PULSE 66–96; RESP 16–20; TEMP 36.3–36.5; O2SAT 92–97
[2024-04-11] MEDS: Aspirin Enteric Coated 81 MG TABLET.DR PO (08:10)
[2024-04-11] MEDS: Atorvastatin Calcium 40 MG TABLET PO (08:10)
[2024-04-11] MEDS: busPIRone HCl 5 MG TABLET PO ×3 (08:11→19:46)
[2024-04-11] MEDS: Nicotine 21 MG PATCH.TD24 TRANSDERMA (08:11)
[2024-04-11] MEDS: 0.9 % Sodium Chloride Flush 3 ML SYRINGE IVFLUSH ×4 (08:11→23:53)
--- NOTE | 2024-04-11 08:56 | MHC.CM.PN ---
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 He is able to get transport home at [place]. HCP discussed, he declined to complete one at this time. DCP: home, self care, CM to follow for DC needs.
[2024-04-11] MEDS: amLODIPine Besylate 5 MG TABLET PO (08:58)
--- NOTE | 2024-04-11 10:41 | P.CNNE_ITS ---
History of Present Illness Data of Consult Service Date: 04/11/24 Primary Care Provider: Eleonora Hector MD [facility] Reason for consult: Stroke 53 years old man with hypertension and previous history of cocaine use came to hospital with slurred speech. He woke up with this condition. Time of onset of symptoms and extent of symptoms were evaluated and he was not treated with intravenous treatment such as tPA or TNK. Now he was feeling somewhat better. There was no history of recent fall or headache or cold or flu-like illness. He was also feeling unsteady when walking. Review of Systems 2 Review of Systems: No chest pain palpitation or seizure-like activity [facility] Past Medical History Medical History (Updated 04/11/24 @ 10:44 by Ahmet Sampson MD) Alcohol use disorder Cocaine use disorder Myocardial infarction Annual physical exam Hyperlipidemia HTN (hypertension) Anxiety and depression Family History Family History Father HTN (hypertension) Stroke Mother Alcoholism Maternal Grandfather No problems noted. Maternal Grandmother No problems noted. Paternal Grandfather No problems noted. Paternal Grandmother Stroke Surgical History Surgical History S/P cardiac cath History of meniscal tear Social History Social History Household Members: Family Housing: Apartment Do you presently have visiting nurse or other home services: No Alcohol intake: current Alcohol intake frequency: other Alcohol type: beer Patient Tobacco Use Status: Current everyday Tobacco user Tobacco use type: Cigarette Cigarettes Per Day: 10 Years Smoked: 20 Smoked in Last 30 Days: Yes e-Cigarette/Vaping Use: Never Used Patient Interested in Nicotine Replacement: Yes Use of substances other than those prescribed or required for medical reasons: No Currently Displaying Signs/Symptoms of Drug Intoxication Withdrawal: No Have you been hit, kicked, punched, or otherwise hurt by someone within the past year? If so, by whom?: No Do you feel safe in your current relationship?: Yes Is there a partner from a previous relationship who is making you feel unsafe now?: No Are you made to feel afraid or neglected: No Advance Directives: No Advance Directives Information Provided: Yes Do you have a plan to hurt others: No Plan Recently lost weight without trying: No Nutrition Risks: No Nutritional Risk Poor oral hygiene: No service: No Current occupational status: employed Cognitive needs: No Hearing needs: No Vision needs: Yes Meds Allergies Allergy/AdvReac Type Severity Reaction Status Date / Time citalopram AdvReac Unknown diarrhea Verified 04/10/24 09:01 Active Medications: Current Medications Acetaminophen (Acetaminophen 325 Mg Tablet) 650 mg PO Q6H PRN PRN Reason: Pain, Mild (Pain Scale 1-3), fever or headache Last Admin: 04/10/24 19:38 Dose: 650 mg Amlodipine Besylate (Amlodipine Besylate 5 Mg Tablet) 5 mg PO DAILY [facility]; Protocol Last Admin: 04/11/24 08:58 Dose: 5 mg Aspirin (Aspirin Enteric Coated 81 Mg Tablet.Dr) 81 mg PO DAILY [facility] Last Admin: 04/11/24 08:10 Dose: 81 mg Atorvastatin Calcium (Atorvastatin Calcium 40 Mg Tablet) 40 mg PO DAILY [facility] Last Admin: 04/11/24 08:10 Dose: 40 mg Benzonatate (Benzonatate 100 Mg Capsule) 100 mg PO TID PRN PRN Reason: Cough Buspirone HCl (Buspirone Hcl 5 Mg Tablet) 5 mg PO TID [facility] Last Admin: 04/11/24 08:11 Dose: 5 mg Calcium Carbonate (Calcium Carbonate 750 Mg Tab.Chew) 750 mg PO Q4H PRN PRN Reason: Heartburn Enoxaparin Sodium (Enoxaparin Sodium 40 Mg/0.4 Ml Syringe) 40 mg SUBCUT Q24H [facility] Last Admin: 04/10/24 14:18 Dose: 40 mg Melatonin (Melatonin 3 Mg Tablet) 6 mg PO BEDTIME PRN PRN Reason: Insomnia Nicotine (Nicotine 21 Mg Patch.Td24) 21 mg TRANSDERMA DAILY [facility] Last Admin: 04/11/24 08:11 Dose: 21 mg Ondansetron HCl (Ondansetron Hcl 4 Mg/2 Ml Vial) 4 mg IVPUSH Q8H PRN PRN Reason: Nausea and Vomiting Polyethylene Glycol (Polyethylene Glycol 3350 17 Gm Powd.Pack) 17 gm PO DAILY PRN PRN Reason: Constipation Sodium Chloride (0.9 % Sodium Chloride Flush 3 Ml Syringe) 3 ml IVFLUSH QSHIFT DAVIDE Last Admin: 04/11/24 08:11 Dose: 3 ml Home Medications ?Medication ?Instructions ?Recorded ?Confirmed ?Last Taken ?Type buspirone 5 mg tablet 5 mg PO TID 04/10/24 04/10/24 Unknown History lisinopril 40 mg tablet 40 mg PO DAILY 04/10/24 04/10/24 Unknown History nebivolol 20 mg tablet 20 mg PO DAILY 04/10/24 04/10/24 Unknown History Physical Exam 2 Vital Signs: Vital Signs: Last Vital Signs Temp 97.5 F 04/11/24 07:53 Pulse 66 04/11/24 07:53 Resp 19 04/11/24 07:53 BP 161/100 H 04/11/24 08:58 Pulse Ox 92 04/11/24 07:53 O2 Del Method Room Air 04/11/24 07:53 BMI result Body Mass Index 35.0 Neuro: Other: He is alert and awake with normal spontaneity of speech fluency comprehension and affect. Speech is mildly slurred. Visual lopez are full. Extraocular muscles are intact. There is no definite facial weakness. Part of that is his machado probably hiding facial asymmetry. There is no significant focal arm or leg weakness. Plantars are flexor. Deep tendon reflexes are trace to absent. Results Labs 04/10/24 09:16 04/10/24 09:16 Labs: MRI of brain revealed an acute right middle cerebral artery area and another left internal capsular area ischemic infarction. MRI also revealed multiple similar chronic ischemic infarctions. CTA revealed multiple areas of intracranial atherosclerotic disease. Echocardiogram and EKG did not reveal any significant abnormality. Assessment and Plan (1) Multiple cerebral infarctions: Status: Acute 53 years old man with bilateral acute ischemic infarctions with underlying similar chronic ischemic infarctions and CTA revealing multiple areas of arterial stenosis. He also has previous exposure to cocaine. Blood pressure was high. At this time recommendations are to use aspirin 81 mg daily with clopidogrel 75 mg daily, and blood pressure control with complete avoidance of cocaine type of drugs. Procedures Date of Service Date of Service: 04/11/24
--- NOTE | 2024-04-11 13:47 | MHC.SL.SWA ---
Speech Pathologist Impression: Risk of aspiration, pharyngeal phase dysphagia, slurred speech Risk of Aspiration Due to: Neurological Condition Dysphasia Diet Status: DOWNGRADE liquids to NTL Liquid Consistency and Strategies for Safe Swallow: Liquid Intake Recommendation: [place] Thick Liquid Intake Strategies: Small Sips No Straws Solid Food Consistency: Dietary Recommendations: Regular Additional Modifications to Solid Foods: Patient seen by [facility] [employer] [employer] this morning for bedside dysphagia exam and speech-language screening. No word finding difficulties were apparent in conversation or with confrontational naming. Patient appropriately responded to questions and followed commands. He formulated complete sentences and was able to engage in conversation. He did evidence mildly slurred speech quality and slowed rate of speech. Additionally, he is coughing on thin liquids consistently. No difficulties were observed in the oral phase or with solids. Recommend REGULAR texture diet and downgrade to NECTAR THICK liquids, pills WHOLE with thickened liquid or with puree. Standard aspiration precautions apply given risks associated w/ dx CVA. Plan to re-evaluate on Sunday should patient still be admitted to the hospital. Patient would benefit from continued speech therapy services after discharge for mild dysarthria and pharyngeal phase dysphagia. Oral Medication Intake: Whole with Puree Please contact the pharmacy regarding appropriate crushable or liquid drug formulations that are available whenever modified delivery is recommended. Compensatory Strategies and Precautions to be Taken for Safe Swallow: Sitting Upright (90 deg) No Straw Small Bites and Sips Alternate Liquids/Solids Rate of Ingestion Change Avoid Specific Foods Supervision While Eating and Drinking for Safe Swallow: Total Supervision (1:1) Foods to Avoid: Mixed textures Swallowing Recommended Treatments: Compens. Strategy Educat. Recommendation for Speech: Inpatient Speech Therapy Comment: Per CM, DCP at this time is home w/ self-care. Patient is recommended outpatient speech therapy for dysarthria and pharyngeal phase dysphagia. Frequency/Duration: Date Range for Service Req: Timeline to reassess: Triage Licensed Practical Nurse Clinican/Clinical Fellow: No Supervisory Statement: I have reviewed and agree with the student/clinical fellow's documentation: N/A Speech Language Pathologist: Carly Aranda M.A., CCC-[facility]
[2024-04-11] MEDS: Enoxaparin Sodium 40 MG/0.4 ML SYRINGE SUBCUT (13:54)
[2024-04-11] MEDS: lisinopriL 20 MG TABLET PO (15:06)
[2024-04-11] MEDS: Clopidogrel Bisulfate 75 MG TABLET PO (15:06)
--- NOTE | 2024-04-11 15:32 | P.PNIM_ITS ---
Subjective Subjective Date of Service: 04/11/24 Interval History: Complaining of persistent right facial numbness and thick speech, denies upper or lower extremity weakness, no word-finding difficulty no headache no dizziness no other acute issues overnight. Review of Systems All other system reviewed and negative. Physical Exam 2 Vital Signs: Vital Signs: Last Vital Signs Temp 97.4 F 04/11/24 11:10 Pulse 77 04/11/24 11:10 Resp 18 04/11/24 11:10 BP 177/90 H 04/11/24 15:06 Pulse Ox 97 04/11/24 11:10 O2 Del Method Room Air 04/11/24 11:10 BMI result Body Mass Index 35.0 Const: Other: General awake alert x3, in no acute distress. Neck supple no JVD. CVS regular rate rhythm, Respiratory lungs clear to auscultation, no respiratory distress, no wheeze, no rhonchi. Gastrointestinal abdomen soft, non tender, bowel sounds audible, no no guarding , no rigidity. Extremities no edema. Neuro face symmetrical normal motor strength and tone, mild slurred speech Skin no rash Psych appropriate affect Objective Data Active Medications Acetaminophen (Acetaminophen 325 Mg Tablet) 650 mg PO Q6H PRN PRN Reason: Pain, Mild (Pain Scale 1-3), fever or headache Last Admin: 04/10/24 19:38 Dose: 650 mg Documented By: KATHERINE Amlodipine Besylate (Amlodipine Besylate 5 Mg Tablet) 5 mg PO DAILY [facility]; Protocol Last Admin: 04/11/24 08:58 Dose: 5 mg Documented By: ISAÍAS Aspirin (Aspirin Enteric Coated 81 Mg Tablet.) 81 mg PO DAILY [facility] Last Admin: 04/11/24 08:10 Dose: 81 mg Documented By: ISAÍAS Atorvastatin Calcium (Atorvastatin Calcium 40 Mg Tablet) 40 mg PO DAILY [facility] Last Admin: 04/11/24 08:10 Dose: 40 mg Documented By: ISAÍAS Benzonatate (Benzonatate 100 Mg Capsule) 100 mg PO TID PRN PRN Reason: Cough Buspirone HCl (Buspirone Hcl 5 Mg Tablet) 5 mg PO TID [facility] Last Admin: 04/11/24 13:54 Dose: 5 mg Documented By: ISAÍAS Calcium Carbonate (Calcium Carbonate 750 Mg Tab.Chew) 750 mg PO Q4H PRN PRN Reason: Heartburn Clopidogrel Bisulfate (Clopidogrel Bisulfate 75 Mg Tablet) 75 mg PO DAILY [facility] Last Admin: 04/11/24 15:06 Dose: 75 mg Documented By: ISAÍAS Enoxaparin Sodium (Enoxaparin Sodium 40 Mg/0.4 Ml Syringe) 40 mg SUBCUT Q24H [facility] Last Admin: 04/11/24 13:54 Dose: 40 mg Documented By: ISAÍAS Lisinopril (Lisinopril 20 Mg Tablet) 20 mg PO DAILY [facility]; Protocol Last Admin: 04/11/24 15:06 Dose: 20 mg Documented By: ISAÍAS Melatonin (Melatonin 3 Mg Tablet) 6 mg PO BEDTIME PRN PRN Reason: Insomnia Nicotine (Nicotine 21 Mg Patch.Td24) 21 mg TRANSDERMA DAILY [facility] Last Admin: 04/11/24 08:11 Dose: 21 mg Documented By: ISAÍAS Ondansetron HCl (Ondansetron Hcl 4 Mg/2 Ml Vial) 4 mg IVPUSH Q8H PRN PRN Reason: Nausea and Vomiting Polyethylene Glycol (Polyethylene Glycol 3350 17 Gm Powd.Pack) 17 gm PO DAILY PRN PRN Reason: Constipation Sodium Chloride (0.9 % Sodium Chloride Flush 3 Ml Syringe) 3 ml IVFLUSH QSHIFT [facility] Last Admin: 04/11/24 15:07 Dose: 3 ml Documented By: ISAÍAS Labs 04/10/24 09:16 04/10/24 09:16 Assessment and Plan (1) Multiple cerebral infarctions: Status: Acute (2) HTN (hypertension): Status: Acute Plan 53 years old man with bilateral acute ischemic infarctions with underlying similar chronic ischemic infarctions and CTA revealing multiple areas of arterial stenosis. He also has previous exposure to cocaine. Blood pressure was high. At this time recommendations are to use aspirin 81 mg daily with clopidogrel 75 mg daily, and blood pressure control with complete avoidance of cocaine type of drugs. 53-year-old male with a PMH significant for HTN, HLD, cocaine-associated [place] s/p cardiac cath in 2019, and alcohol use disorder 3 years sober who presents to the ED with?slurred speech and right facial numbness since this morning. Pt will be admitted to the hospital for slurred speech, right facial numbness, and left- sided weakness concerning for acute CVA. Bilateral acute ischemic infarctions. Persistent speech impairment and facial numbness no new neurological deficits. MRI showed late acute to subacute infarctions of the right tena radiata, lentiform nucleus and posterior limb of the left internal capsule, with chronic encephalomalacia in the right superior frontal gyrus, chronic lacunar infarction of the deep nuclei and brainstem and moderate microangiopathy and generalized cerebral volume loss CT of head negative for acute intracranial abnormality, but showing chronic lacunar infarcts CTA of head/neck showing severe left posterior cerebral artery stenosis, moderate right COOLING ROOM ATTENDANT stenosis, and mild anterior cerebral artery stenosis Echo showed EF 45-50% , moderate septal asymmetric hypertrophy, and basal inferior septal hypokinesia and basal inferior segment akinetic Patient seen by Neurology they recommend aspirin 81 mg daily and Plavix 75 mg daily, continue statin and good blood pressure control Recommend to completely abstain from cocaine use PT recommend outpatient follow-up Speech therapy recommend outpatient continued speech eval and treatment, diet downgraded to regular and nectar thick liquids Recommend outpatient Cardiology follow-up for abnormal echo HTN Patient on 4 blood pressure medications including amlodipine, lisinopril, nebivolol, and tramterene-hydrochlorothiazide Will resume lisinopril and amlodipine and follow blood pressure closely Recommend close outpatient blood pressure monitoring. DNR/DNI, DVT Prophylaxis: Lovenox Pt will require continued inpatient hospitalization for monitoring of high blood pressure and speech therapy . Quality Stroke Does the patient have a stroke diagnosis?: Yes Reason for No Anti-thrombotic by Day Two: Contraindicated (Pt outside of tNK therapeutic window) VTE Prior VTE?: No VTE Risk Level:: Medical - moderate - high VTE Device Contraindication: Treatment Not Indicated VTE Drug Contraindication: N/A - Med Ordered
[2024-04-11] MEDS: Melatonin 3 MG TABLET 6 MG PO (19:47)
[2024-04-11] MEDS: Acetaminophen 325 MG TABLET 650 MG PO (19:48)
[2024-04-12] VITALS: BP 160/80; PULSE 78; RESP 16; TEMP 36.8; O2SAT 94
[2024-04-12 04:00] VITALS: BP 171/83; PULSE 72; RESP 18; TEMP 36.1; O2SAT 97
--- NOTE | 2024-04-12 04:22 | PC.NURSE ---
Patient is on nectar thick due to stroke symptoms. He is refusing thickener in his beverages despite education on risks.
[2024-04-12 08:00] VITALS: BP 163/78; PULSE 72; RESP 18; TEMP 36.3; O2SAT 94
[2024-04-12] MEDS: Clopidogrel Bisulfate 75 MG TABLET PO (08:58)
[2024-04-12] MEDS: busPIRone HCl 5 MG TABLET PO (08:58)
[2024-04-12] MEDS: amLODIPine Besylate 10 MG TABLET PO (08:59)
[2024-04-12] MEDS: Atorvastatin Calcium 40 MG TABLET PO (08:59)
[2024-04-12] MEDS: lisinopriL 40 MG TABLET PO (08:59)
[2024-04-12] MEDS: Nicotine 21 MG PATCH.TD24 TRANSDERMA (08:59)
[2024-04-12] MEDS: Aspirin Enteric Coated 81 MG TABLET.DR PO (08:59)
[2024-04-12] MEDS: 0.9 % Sodium Chloride Flush 3 ML SYRINGE IVFLUSH (09:00)
--- NOTE | 2024-04-12 11:29 | P.DS_ITS ---
DS: Providers Provider Date of Service: 04/12/24 Date of admission: 04/10/24 13:48 Primary care physician: Eleonora Hector MD Consults: 04/10/24 13:56 Consult to Neurology Routine Consulting Provider: [facility] Reason for consultation: Slurred speech, left-sided weakness, ?CVA DS: Diagnosis Discharge Diagnosis (1) Multiple cerebral infarctions: Status: Acute (2) HTN (hypertension): Status: Acute DS: Summary Hospital Course Hospital Course: History of presenting illness: Date of Service: 04/10/24 Attending physician on admission: Bob Osborn Chief Complaint: Right-sided weakness Pt is a 53-year-old male with a PMH significant for HTN, HLD, cocaine-associated [place] s/p cardiac cath in 2019, and alcohol use disorder 3 years sober who presents to the ED with?slurred speech and right facial numbness since this morning. Pt reports waking this morning and finding that he could not speak correctly and the right side of his face felt numb. At first thought it might be the flu or a cold so went to work where his coworkers noted he was having significantly slurred speech and sent him to the ED for further evaluation. Patient also reports having some difficulty swallowing and delayed thinking. Reports his speech has improved some especially when he speaks slowly, though right side of his face continues to be numb. Yesterday, patient noted he was having difficulty with his left sea foam kiss maker, noting that he kept dropping his cigarette. Also had some difficulty with walking yesterday, saying he kept hitting his left sh oulder on day and doorways. Apparently did not think much of this and did not seek medical evaluation. No headache or acute vision changes. Denies numbness or tingling in extremities. No chest pain/pressure, palpitations. Denies fever, chills, nausea, vomiting, abdominal pain. Patient has been sober of cocaine and alcohol for the past 3-4 years. Attempting to quit cigarettes but still smoking half a pack daily. In the ED pt was hypertensive up to 156/83, vitals otherwise stable and WNL. Labs were significant for elevated triglycerides of 181 and HDL low at 25, otherwise grossly unremarkable. No leukocytosis. Stable H&H. No significant electrolyte abnormalities. Renal and hepatic function WNL. Troponin 5.8. UA negative for UTI. Tox screen negative. CT?of head showed no acute intracranial abnormality including hemorrhage, mass effect, hydrocephalus, or acute territorial edematous infarction. Did show moderate chronic microangiopathic white matter hypodensity, chronic right frontal lobe infarct, and chronic lacunar infarcts involving the left caudate and rosey. CTA of head found no hemodynamically significant stenosis in cervical vasculature, but showed severe focal stenosis in left posterior cerebral artery, moderate stenosis and P3 segment of right RETOUCHER PHOTOENGRAVING, and mild multifocal stenosis of the a 2 segments of the anterior cerebral arteries. 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 Other findings include mucosal opacification of right maxillary sinus with soft tissue extending into the right middle meatus, concerning for possible obstructing lesion at right maxillary sinus. EKG demonstrated normal sinus rhythm with T-wave inversions in V5, V6, I, II, and aVL. Pt was treated with aspirin. Pt will be admitted to the hospital for slurred speech, right facial numbness, and left-sided weakness concerning for acute CVA. Hospital course: Bilateral acute ischemic infarctions with underlying chronic ischemic infarction: 53-year-old male with a PMH significant for HTN, HLD, cocaine-associated [place] s/p cardiac cath in 2019, and alcohol use disorder 3 years sober who presents to the ED with?slurred speech and right facial numbness and admitted to the hospital for slurred speech, right facial numbness, and left-sided weakness concerning for acute CVA, patient continued to have persistent slurred speech but improving, has no other neurological deficit ,CT of head showed no acute intracranial abnormality, but showed chronic lacunar infarcts, CTA of head/neck showed severe left posterior cerebral artery stenosis, moderate right RETOUCHER PHOTOENGRAVING stenosis, and mild anterior cerebral artery stenosis, Echo showed EF 45-50% , moderate septal asymmetric hypertrophy, and basal inferior septal hypokinesia and basal inferior segment akinetic, MRI showed late acute to subacute infarctions of the right tena radiata, lentiform nucleus and posterior limb of the left internal capsule, with chronic encephalomalacia in the right superior frontal gyrus, chronic lacunar infarction of the deep nuclei and brainstem and moderate microangiopathy and generalized cerebral volume loss ,Patient seen by Neurology they recommend aspirin 81 mg daily and Plavix 75 mg daily, recommend to continue statin and good blood pressure control, patient evaluated by Physical therapy and they recommend outpatient physical therapy for balance and strengthening speech therapy recommend continued teaching for mild dysarthria and pharyngeal phase dysphagia, he is recommended to follow up with Cardiology for abnormal wall motion abnormality. Hypertension recommend to continue all home medications including amlodipine, lisinopril, nebivolol, and tramterene-hydrochlorothiazide , recommend close outpatient blood pressure monitoring and follow-up with PCP Time Attestation Discharge Coordination Time (in mins): 40 Quality: Safe Use of Opioids Does Pt have an Active Cancer Diagnosis on the Problem List?: No Quality: Stroke Does the patient have a stroke diagnosis?: No Physical Exam Vital Signs: Vital Signs: Last Vital Signs Temp 97.4 F 04/12/24 08:00 Pulse 72 04/12/24 08:00 Resp 18 04/12/24 08:00 BP 163/78 H 04/12/24 08:00 Pulse Ox 94 04/12/24 08:00 O2 Del Method Room Air 04/12/24 08:00 BMI result Body Mass Index 35.0 Const: Other: General awake alert x3, in no acute distress. Neck supple no JVD. CVS regular rate rhythm, Respiratory lungs clear to auscultation, no respiratory distress, no wheeze, no rhonchi. Gastrointestinal abdomen soft, non tender, bowel sounds audible, no no guarding , no rigidity. Extremities no edema. Neuro face symmetrical ,normal motor strength and tone, mild slurred speech improving. Skin no rash Psych appropriate affect Discharge Plan Discharge Anticipated Discharge Date/Time: 04/12/24 11:24 Patient Disposition: Home, Self-Care Discharge Diagnosis: Acute CVA Referrals: Eleonora Hector MD [Primary Care Provider] - 1 Week Discharge Medications: New atorvastatin 40 mg Tablet 40 mg PO DAILY Qty: 30 0RF clopidogrel 75 mg Tablet 75 mg PO DAILY Qty: 90 0RF aspirin 81 mg Tablet,Delayed Release (Dr/Ec) 81 mg PO DAILY Qty: 30 0RF nicotine 21 mg/24 hr Patch 24 Hour 21 mg transdermal DAILY Qty: 30 0RF Continued buspirone 5 mg Tablet 5 mg PO TID lisinopril 40 mg Tablet 40 mg PO DAILY nebivolol 20 mg Tablet 20 mg PO DAILY amlodipine 10 mg tablet 10 mg PO DAILY Qty: 90 3RF triamterene-hydrochlorothiazid 37.5-25 mg tablet 1 tab PO DAILY Qty: 90 3RF Discontinued atorvastatin 20 mg tablet 20 mg PO DAILY Qty: 90 3RF Discharge Orders: Discharge Order (Routine); Ordered 04/12/24 Ordered By: Bob Osborn Diet: [place] thick liquids Activity on Discharge: As tolerated Stand Alone Forms: Patient Portal Discharge page Print Language: French Care Plan Goals: Acute CVA take aspirin, Plavix and high-dose Lipitor 40 mg daily, follow low- calorie diet Outpatient follow-up with speech therapy Take small bites and sips, alternate liquids and solids, avoid straws, eat sitting upright at 90 degree Health Concerns: Hypertension Tobacco use disorder recommend to use nicotine patch Plan of Treatment: Outpatient follow-up with primary care physician call for appointment and obtain speech therapy consult Outpatient follow-up with security control room officer Dr. Gordo Baltazar Assessment: As above
--- NOTE | 2024-04-12 12:41 | MHC.CM.PN ---
Pt is medically cleared for discharge home self-care, will need outpatient speech services. Pt will arrange his own transport home.
== END 2024-04-12 11:58 | disposition home or self-care (01) | DRG 65 ==
LOC: HO.ED 10:32 → HO.EDOVER 14:04 → HO.S3 15:00 → HO.EDOVER 15:14 → HO.IMC 15:31
PROVIDERS: Admitting Provider Student in an Organized Health Care Education/Training Program; Emergency Provider Emergency Medicine; PCP Internal Medicine; Visit Provider Hospitalist
DX: I63.9 Cerebral infarction, unspecified (principal); G81.94 Hemiplegia, unspecified affecting left nondominant side; F17.210 Nicotine dependence, cigarettes, uncomplicated; I10 Essential (primary) hypertension; Z66 Do not resuscitate; R47.81 Slurred speech; R20.0 Anesthesia of skin; R29.702 NIHSS score 2; Z71.6 Tobacco abuse counseling; Z79.899 Other long term (current) drug therapy
CPT/HCPCS: 36415; 70450; 70496; 70498; 70551; 80048; 80061; 80076; 80307; 81003; 82947; 83036; 83735; 84484; 85025; 85610; 85730; 92610; 93005; 93306; 97161; 97165; 99285; J1650; Q9957; Q9967

== ENCOUNTER → 2024-04-10 09:09 | Outpatient (BNV) | payer OTHER, SELFPAY | PROVIDERS: Admitting Provider Student in an Organized Health Care Education/Training Program; Emergency Provider Emergency Medicine; PCP Internal Medicine; Visit Provider Internal Medicine Cardiovascular Disease | DX: I42.2 Other hypertrophic cardiomyopathy (principal); I34.81 Nonrheumatic mitral (valve) annulus calcification; R94.31 Abnormal electrocardiogram [ECG] [EKG] | CPT/HCPCS: 93010; 93306 ==

== ENCOUNTER → 2024-04-10 13:48 | Outpatient (BNV) | payer OTHER, SELFPAY | PROVIDERS: Admitting Provider Student in an Organized Health Care Education/Training Program; Emergency Provider Emergency Medicine; PCP Internal Medicine; Visit Provider Student in an Organized Health Care Education/Training Program | DX: I63.9 Cerebral infarction, unspecified (principal); I10 Essential (primary) hypertension; R53.1 Weakness | CPT/HCPCS: 99223; 99232; 99239 ==

== ENCOUNTER → 2024-04-10 13:48 | Outpatient (BNV) | payer OTHER, SELFPAY | PROVIDERS: Admitting Provider Student in an Organized Health Care Education/Training Program; Emergency Provider Emergency Medicine; PCP Internal Medicine; Visit Provider Psychiatry & Neurology Neurology | DX: I63.523 Cerebral infarction due to unspecified occlusion or stenosis of bilateral anterior cerebral arteries (principal) | CPT/HCPCS: 99222 ==

== ENCOUNTER 2024-04-22 13:55 | Outpatient (AMB) | payer OTHER, SELFPAY ==
[2024-04-22 14:38] VITALS: BP 138/88; PULSE 65; O2SAT 96
--- NOTE | 2024-04-22 14:38 | MHC.PC.OV ---
Vital Signs 04/22/24 14:38 Height 51 ft Weight 256 lb BMI 0.5 BP 138/88 Blood Pressure Location Rt brachial Position Sitting Pulse 65 Pulse Source Pulse Oximeter Pulse Oximetry (%) 96 Oxygen Delivery Method Room Air Intake Visit Reasons: Hospital follow up Intake Note: Pt is here today for Hospital follow up visit. Allergies citalopram Adverse Reaction (Unknown, Verified 04/22/24 14:40) diarrhea Medication List - Last Reconciled 04/22/24 by Eleonora Hector MD amlodipine 10 mg PO DAILY aspirin 81 mg PO DAILY atorvastatin 40 mg PO DAILY buspirone 5 mg PO TID clopidogrel 75 mg PO DAILY lisinopril 40 mg PO DAILY nebivolol 20 mg PO DAILY nicotine 21 mg transdermal DAILY triamterene-hydrochlorothiazid 37.5-25 mg 1 tab PO DAILY Tobacco use date assessed: 04/22/24 Dental Screening Dental Screen Date: 04/22/24 Did you have a dental visit in the last 12 months?: Yes Did you have a dental problem in the last 6 months where you did not have access to dental care?: No Was dental information given to patient?: Patient has dentist HPI Hospital follow up HPI Details Patient presents for the follow-up hospitalization at [facility] for acute CVA with left-sided weakness and right-sided facial numbness. 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 [facility] Medical History (Updated 04/22/24 @ 15:38 by Eleonora Hector MD) Alcohol use disorder Cocaine use disorder Myocardial infarction Annual physical exam Hyperlipidemia HTN (hypertension) Anxiety and depression Surgical History S/P cardiac cath History of meniscal tear Family History Father HTN (hypertension) Stroke Mother Alcoholism Maternal Grandfather No problems noted. Maternal Grandmother No problems noted. Paternal Grandfather No problems noted. Paternal Grandmother Stroke Social History Household Members: Family Housing: Apartment Do you presently have visiting nurse or other home services: No Alcohol intake: current Alcohol intake frequency: other Alcohol type: beer Patient Tobacco Use Status: Former Tobacco user (04/10/24) Tobacco use type: Cigarette Cigarettes Per Day: 10 Years Smoked: 20 e-Cigarette/Vaping Use: Never Used service: No Current occupational status: employed Cognitive needs: No Hearing needs: No Vision needs: Yes Questionnaire Thrive Questionnaire Date Thrive assessed: 04/11/24 AUDIT C Alcohol Use Questionnaire (AUDIT-C) 1. How often do you have a drink containing alcohol?: Never 3. How often do you have six or more drinks on one occasion?: Never Total Score: 0 RAMBO-7 AMB Questionnaire RAMBO-7 Date RAMBO - 7 assessed: 05/01/22 Source: Developed by Drs. Pasha Denise, Oralia Edward, Fabio Ho and colleagues, with an educational obinna from [employer]. Review of Systems Const All systems reviewed & are unremarkable except as noted in HPI and below Eyes Reports no additional complaints Card Reports no additional complaints Resp Reports no additional complaints GI Reports no additional complaints Reports no additional complaints Musc Reports no additional complaints Physical exam (Primary Care) Vital Signs: Last Vital Signs Pulse 65 04/22/24 14:38 Pulse Ox 96 04/22/24 14:38 Oxygen Delivery Method Room Air 04/22/24 14:38 BMI result Body Mass Index 0.5 Tobacco/Smoking Status: Tobacco use Status Tobacco use date assessed 04/22/24 04/22/24 14:46 Patient Tobacco Use Status Former Tobacco user (04/10/24 04/22/24 14:46 ) Tobacco use type Cigarette 04/22/24 14:46 e-Cigarette/Vaping Use Never Used 04/22/24 14:46 Thrive Assessment: Date of Thrive Assessment Date Thrive assessed 04/11/24 04/22/24 14:46 Const General: no acute distress HENMT Head: Yes normal to inspection Eyes General: appearance normal, both eyes and all related structures Resp Effort & Inspection: normal respiratory effort Auscultation: clear to auscultation bilaterally Cardio Rhythm: regular rhythm Heart sounds: S1 normal heart sound present and S2 normal heart sound present GI Inspection: Yes normal to inspection Palpation (GI): Soft to palpation Percussion: Yes normal to percussion Auscultation: normal bowel sounds Neuro Other: Slight right facial droop, motor strength 4/5 proximal left upper and left lower extremity Gait exam (Neuro): Normal gait present Assessment and Plan Assessment & Plan (1) Cerebrovascular accident: Comment: Left upper and lower extremity weakness, right facial droop 04/10/2024 Code(s): I63.9 - Cerebral infarction, unspecified Qualifiers: CVA mechanism: unspecified Qualified Code(s): I63.9 - Cerebral infarction, unspecified Plan: Continue aspirin Plavix and high dose of statin, patient will follow-up with urology, start physical therapy and speech therapy (2) HTN (hypertension): Code(s): I10 - Essential (primary) hypertension Plan: Restart all blood pressure medications , patient follow-up in 1 month check fasting blood work before (3) Hyperlipidemia: Code(s): E78.5 - Hyperlipidemia, unspecified Plan: Continue 40 mg of atorvastatin (4) Myocardial infarction: Comment: after cocaine use Code(s): I21.9 - Acute myocardial infarction, unspecified Plan: Continue current medications follow-up with the Cardiology (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 Code(s): J34.89 - Other specified disorders of nose and nasal sinuses Orders: Orders Lipid Panel 1 Month E78.5 - Hyperlipidemia, unspecified, I10 - Essential (primary) hypertension, Z00.00 - Encounter for general adult medical examination without abnormal findings Complete Blood Count Auto Diff 1 Month E78.5 - Hyperlipidemia, unspecified, I10 - Essential (primary) hypertension, Z00.00 - Encounter for general adult medical examination without abnormal findings PT Evaluation and Treatment Today E78.5 - Hyperlipidemia, unspecified, I10 - Essential (primary) hypertension, I63.9 - Cerebral infarction, unspecified, Z00.00 - Encounter for general adult medical examination without abnormal findings Comprehensive [place]. Panel Fast 1 Month E78.5 - Hyperlipidemia, unspecified, I10 - Essential (primary) hypertension, Z00.00 - Encounter for general adult medical examination without abnormal findings Hemoglobin A1c 1 Month E78.5 - Hyperlipidemia, unspecified, I10 - Essential (primary) hypertension, Z00.00 - Encounter for general adult medical examination without abnormal findings Referrals Speech and Hearing Referral E78.5 - Hyperlipidemia, unspecified, I10 - Essential (primary) hypertension, I63.9 - Cerebral infarction, unspecified, Z00.00 - Encounter for general adult medical examination without abnormal findings Ear/Nose/Throat Referral J34.89 - Other specified disorders of nose and nasal sinuses Medications: New lisinopril 40 mg PO DAILY 90 tabs 3RF nebivolol 20 mg PO DAILY 90 tabs 3RF Refilled clopidogrel 75 mg PO DAILY 90 tabs 3RF amlodipine 10 mg PO DAILY 90 tabs 3RF nicotine 21 mg transdermal DAILY 30 ea 5RF triamterene-hydrochlorothiazid 37.5-25 mg 1 tab PO DAILY 90 tabs 3RF atorvastatin 40 mg PO DAILY 90 tabs 3RF Coding Level of Care Code Est Pt Level 4 (99466) Complex EM visit Add On G2211 Diagnoses Cerebrovascular accident I63.9 CVA mechanism: unspecified HTN (hypertension) I10 Hyperlipidemia E78.5 Myocardial infarction I21.9 Maxillary sinus mass J34.89
== END 2024-04-22 15:10 | disposition home or self-care (01) ==
PROVIDERS: PCP Internal Medicine; Visit Provider Internal Medicine
DX: I69.392 Facial weakness following cerebral infarction (principal); I10 Essential (primary) hypertension; E78.5 Hyperlipidemia, unspecified; J34.89 Other specified disorders of nose and nasal sinuses
CPT/HCPCS: 99214

== ENCOUNTER 2024-05-26 13:23 | Outpatient (AMB) | payer OTHER, SELFPAY ==
[2024-05-26 13:52] VITALS: BP 120/66; PULSE 66; O2SAT 97; BMI 35.4
--- NOTE | 2024-05-26 13:52 | A.OFFPC_ITS ---
Vital Signs 05/26/24 13:52 Height 5 ft 11 in Weight 254 lb BMI 35.4 BP 120/66 Blood Pressure Location Lt brachial Position Sitting Pulse 66 Pulse Source Pulse Oximeter Pulse Oximetry (%) 97 Oxygen Delivery Method Room Air Intake Visit Reasons: 1 month f/u Intake Note: Pt is here today for 1 month follow up visit on HTN. Allergies citalopram Adverse Reaction (Unknown, Verified 05/26/24 13:54) diarrhea Medication List - Last Reconciled 05/26/24 by Eleonora Hector MD amlodipine 10 mg PO DAILY aspirin 81 mg PO DAILY atorvastatin 40 mg PO DAILY buspirone 5 mg PO TID clopidogrel 75 mg PO DAILY lisinopril 40 mg PO DAILY nebivolol 20 mg PO DAILY nicotine 21 mg transdermal DAILY triamterene-hydrochlorothiazid 37.5-25 mg 1 tab PO DAILY Tobacco use date assessed: 05/26/24 Dental Screening Dental Screen Date: 04/22/24 HPI 1 month f/u HPI Details Patient presents for the follow-up on hypertension hyperlipidemia status post stroke. He has not started physical therapy yet. Patient quit smoking 6 weeks ago. He complains of feeling anxious and tired and not sleeping well at night. He denies depression or suicide ideation. [facility] Medical History (Updated 05/26/24 @ 15:40 by Eleonora Hector MD) Alcohol use disorder Cocaine use disorder Myocardial infarction Annual physical exam Hyperlipidemia HTN (hypertension) Anxiety and depression Surgical History S/P cardiac cath History of meniscal tear Family History Father HTN (hypertension) Stroke Mother Alcoholism Maternal Grandfather No problems noted. Maternal Grandmother No problems noted. Paternal Grandfather No problems noted. Paternal Grandmother Stroke Social History Household Members: Family Housing: Apartment Do you presently have visiting nurse or other home services: No Alcohol intake: current Alcohol intake frequency: other Alcohol type: beer Patient Tobacco Use Status: Former Tobacco user (04/10/24) Tobacco use type: Cigarette Cigarettes Per Day: 10 Years Smoked: 20 e-Cigarette/Vaping Use: Never Used service: No Current occupational status: employed Cognitive needs: No Hearing needs: No Vision needs: Yes Questionnaire PHQ-9 Over the last 2 weeks, how often have you been bothered by any of the following problems? 1. Little interest or pleasure in doing things: nearly every day 2. Feeling down, depressed, or hopeless: not at all 3. Trouble falling or staying asleep, or sleeping too much: several days 4. Feeling tired or having little energy: several days 5. Poor appetite or overeating: not at all 6. Feeling bad about yourself - or that you are a failure or have let yourself or your family down: not at all 7. Trouble concentrating on things, such as reading the newspaper or watching television: several days 8. Moving or speaking so slowly that other people could have noticed. Or the opposite - being so fidgety or restless that you have been moving around a lot more than usual: several days 9. Thoughts that you would be better off or of hurting yourself in some way: not at all Total score: 7 Depression Screening Interpretation: Negative Depression Screening Done: Yes 21809 - PHQ-9 Billing: Yes Source: Developed by Drs. Pasha Denise, Oralia Edward, Fabio Ho and colleagues, with an educational obinna from [employer]. Thrive Questionnaire Date Thrive assessed: 05/26/24 I am a: Patient What is your living situation today?: I have a steady place to live Within the past 12 months, did the food you bought not last and you didn't have the money to get more?: Sometimes True Within the past 12 months, did you worry whether your food would run out before you got money to buy more?: Never true Do you have trouble paying for medicines?: Yes Do you have trouble getting transportation to medical appointments?: No Do you have trouble paying your heating and electricity bill?: No Do you have trouble taking care of your child, family member or friend?: No Do you have trouble with day-to-day activities such as bathing, preparing meals, shopping, managing finances, etc.?: No Are you currently unemployed and looking for a job?: No Are you interested in more education?: No Please select the resources that you would like help with: Housing/Chcf Currently or been in a relationship where the following occur: No concerns reported THRIVE Score: 1 AUDIT C Alcohol Use Questionnaire (AUDIT-C) 1. How often do you have a drink containing alcohol?: Monthly or less 2. How many drinks containing alcohol do you have on a typical day when you are drinking?: 1 or 2 3. How often do you have six or more drinks on one occasion?: Never Total Score: 1 RAMBO-7 AMB Questionnaire RAMBO-7 Date RAMBO - 7 assessed: 05/26/24 Feeling nervous, anxious, or on edge: 0 = Not at all Not being able to stop or control worryin = Several days Worrying too much about different things: 1 = Several days Trouble relaxin = Several days Being so restless that it is hard to sit still: 1 = Several days Becoming easily annoyed or irritable: 2 = More than half the days Feeling afraid as if something awful might happen: 1 = Several days Total RAMBO-7 score (0-4 normal; 5-9 mild; 10-14 moderate; 15-21 severe): 7 Source: Developed by Drs. Pasha Denise, Oralia Edward, Fabio Ho and colleagues, with an educational obinna from [employer]. RAMBO-7 Assessment Billing RAMBO-7 Assessment Tool: RAMBO-7 Assessment 47104 Review of Systems Const All systems reviewed & are unremarkable except as noted in HPI and below Eyes Reports no additional complaints ENT Reports no additional complaints Card Reports no additional complaints Resp Reports no additional complaints Musc Reports no additional complaints Physical exam (Primary Care) Vital Signs: Last Vital Signs Pulse 66 05/26/24 13:52 BP 120/66 05/26/24 13:52 Pulse Ox 97 05/26/24 13:52 Oxygen Delivery Method Room Air 05/26/24 13:52 BMI result Body Mass Index 35.4 Tobacco/Smoking Status: Tobacco use Status Tobacco use date assessed 05/26/24 05/26/24 13:58 Patient Tobacco Use Status Former Tobacco user (04/10/24 05/26/24 13:58 ) Tobacco use type Cigarette 05/26/24 13:58 e-Cigarette/Vaping Use Never Used 05/26/24 13:58 PHQ-9: PHQ-9 Score PHQ-9: Total score 7 05/26/24 13:58 Depression Screening Interpretation: Negative Thrive Assessment: Date of Thrive Assessment Date Thrive assessed 05/26/24 05/26/24 13:58 Currently or been in a relationship where the following occur: No concerns reported Const General: no acute distress HENMT Face and sinus: Yes normal facial exam Eyes General: appearance normal, both eyes and all related structures Resp Effort & Inspection: normal respiratory effort Auscultation: clear to auscultation bilaterally Cardio Rhythm: regular rhythm Heart sounds: S1 normal heart sound present and S2 normal heart sound present GI Inspection: Yes normal to inspection Palpation (GI): Soft to palpation Percussion: Yes normal to percussion Assessment and Plan Assessment & Plan (1) Anxiety and depression: Code(s): F41.9 - Anxiety disorder, unspecified; F32.9 - Major depressive disorder, single episode, unspecified Plan: Restart buspirone 10 mg twice a day and refer to a counseling (2) HTN (hypertension): Code(s): I10 - Essential (primary) hypertension Plan: Continue current medications (3) Hyperlipidemia: Code(s): E78.5 - Hyperlipidemia, unspecified Plan: Continue statin (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 Panel Fast 2 Months E78.5 - Hyperlipidemia, unspecified, F32.9 - Major depressive disorder, single episode, unspecified, F41.9 - Anxiety disorder, unspecified, I10 - Essential (primary) hypertension Complete Blood Count Auto Diff 2 Months E78.5 - Hyperlipidemia, unspecified, F32.9 - Major depressive disorder, single episode, unspecified, F41.9 - Anxiety disorder, unspecified, I10 - Essential (primary) hypertension Hemoglobin A1c 2 Months E78.5 - Hyperlipidemia, unspecified, F32.9 - Major depressive disorder, single episode, unspecified, F41.9 - Anxiety disorder, unspecified, I10 - Essential (primary) hypertension Lipid Panel 2 Months E78.5 - Hyperlipidemia, unspecified, F32.9 - Major depressive disorder, single episode, unspecified, F41.9 - Anxiety disorder, unspecified, I10 - Essential (primary) hypertension Microalbumin, Random (w Creat) 2 Months E78.5 - Hyperlipidemia, unspecified, F32.9 - Major depressive disorder, single episode, unspecified, F41.9 - Anxiety disorder, unspecified, I10 - Essential (primary) hypertension Medications: New buspirone 10 mg PO BID 180 tabs 1RF Coding Level of Care Code Est Pt Level 4 (69964) Diagnoses Anxiety and depression F41.9; F32.9 HTN (hypertension) I10 Hyperlipidemia E78.5 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
== END 2024-05-26 15:40 | disposition home or self-care (01) ==
PROVIDERS: PCP Internal Medicine; Visit Provider Internal Medicine
DX: I10 Essential (primary) hypertension (principal); F41.9 Anxiety disorder, unspecified; F32.9 Major depressive disorder, single episode, unspecified; I69.362 Other paralytic syndrome following cerebral infarction affecting left dominant side; E78.5 Hyperlipidemia, unspecified
CPT/HCPCS: 99214

== ENCOUNTER 2024-06-26 12:32 | Outpatient (RCR) | payer OTHER, SELFPAY ==
--- NOTE | 2024-07-01 14:29 | MHC.SP.ADU ---
Referring provider: Eleonora Hector MD Reason for Referral: Speech difficulties after stroke Type of Treatment: 55965 Evaluation Speech Sound Production WITH Language Date of Plan of Treatment: 06/26/24 Onset of Symptoms/Illness: 04/10/24 Date Treatment Started: 06/26/24 Medical Diagnosis: I63.9 Cerebral infarction,unspecified I10 Essential (primary) hypertension E78.5 Hyperlipidemia, unspecified Primary Speech Language Diagnosis: R47.01 Aphasia Secondary Speech Language Diagnosis: R41.841 Cognitive communication disorder History Background information in this report is obtained from review of electronic medical record and patient interview. Mr. Browne is a 53 year old male referred for a speech-language evaluation by Eleonora Hector MD of [facility] in [place], [place], due to persistent concerns related to his speech, language, and cognition post-stroke. Patient was admitted to the hospital on 04/10/24 with acute stroke, presenting with slurred speech, right side facial droop, and left sided weakness. His brain MRI that day showed, ?late acute to subacute infarcts of the right tena radiata/lentiform nucleus and posterior limb of the left internal capsule? and ?chronic region of encephalomalacia in the right superior frontal gyrus. Chronic lacunar infarcts of the deep nuclei and brainstem.? Patient was seen by speech therapy while hospitalized and was recommended a regular texture diet with nectar thick liquids after he was observed to be coughing on thin liquids. Patient reports that he continues to have trouble swallowing and has choking episodes on saliva and food. He says he has been ?blending his food? and prefers to eat smoothies lately, but has not continued use of the thickener. At discharge, he was recommended continued speech therapy for the treatment and further evaluation of dysphagia and mild dysarthria. Patient reports he still feels that his speech sounds slurred and that he drools sometimes. Additionally, he reports difficulties with memory, problem solving, focusing, and finding words. He says that when he goes grocery shopping, he has to refer to his devices to help him remember what to buy and exerts more effort trying to focus on the task at hand. Mr. Browne reports he had completed some high school and had to repeat a grade before. Mr. Browne lives with other family members in a private residence. He has two children, aged 15 and 7. Mr. 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 He is on FMLA and is waiting for medical clearance to return to work after his stroke. Medical History: Other: Medical History Annual physical exam Hyperlipidemia HTN (hypertension) Anxiety and depression Surgical History S/P cardiac cath History of meniscal tear Swallowing History: Dysphagia Specific: Pharyngeal Dysphagia Comments: Patient reports coughing on saliva and food. Reported Speech, Language, Cognition difficulties: Memory Cognition Speaking Swallowing Assessment Speech Production: Aphasic: Nonfluent Dysarthric Garbled Slow Clinical Impression: Impaired Tests of Speech & Lang Adults: BDAE BNT Clinical Impression: Impaired Observations: Mr. Browne completed the [place] Naming Test (BNT) Standard Form. He was presented with images, which he was instructed to name in a confrontation naming task. Mr. Browne correctly named 49 out of 60 images independently. Patient was able to name common nouns, but exhibited some difficulty naming less salient items, such as sphinx, abacus, hammock, and knocker. He named items using descriptive phrases (i.e. ?structure in [place]? for target word ?sphinx?). Mr. Browne recognized the correct label in 6 out of 9 trials when provided with a choice of 4 written words. He also benefitted from phonemic cues and sentence completion prompts (i.e. ?I want to relax and lay down in a [place]?? for target word ?hammock?). 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 He utilized compensatory strategies and self-cues to eventually retrieve words on his own and/or to continue the communication exchange. Mr. Browne was also administered the Auditory Comprehension, Oral Expression, Reading and Writing subtests of the [place] Diagnostic Aphasia Examination. His performance is summarized below: RECEPTIVE LANGUAGE: -Patient was instructed to identify spoken words by pointing to a picture that best matches from an array of 4 choices. Patient correctly identified body parts on himself and line images in 16 out of 16 trials. Responses after a short time delay (>5 sec) were scored with 1/2 point while immediate responses (<5 sec) were scored with 1 point. Patient received a score of 16/16 on this portion. -Patient followed multistep and complex directions verbally presented to him in 3 out of 3 trials. Patient was presented with a verbal direction. Each element of the direction carried out was scored with 1 point. Patient received a score of 10 out of 10 on this task. -Patient correctly answered yes/no questions about ideational material in 4 out of 4 trials and about short stories read aloud for him in 7 out of 8 trials. Questions were presented in pairs (6 pairs), each pair consisting of a yes-item and a no-item. In order to gain 1 point, patient was to answer both questions correctly. Patient received a score of 5/6 and commented, ?I have a hard time understanding paragraphs.? EXPRESSIVE LANGUAGE: -Patient generated the days of the week and counted to 21 without difficulty, receiving a score of 4/4. Patient reported no difficulties with his automatic speech. -Patient repeated single words in 5 out of 5 trials and complete sentences in 2 out of 2 trials. Patient exhibited no difficulty with repetition. -Patient responded appropriately to responsive naming questions (i.e. ?What do you use to shave??) in 5 out of 5 trials. Items immediately named were scored as 2 points and items named after a short time delay (>5 sec) were scored as 1 point. Patient named 5 items immediately, receiving a score of 10/10. -Patient correctly named ?special categories,? which included letters, numbers, and colors in 12 out of 12 trials. READING: -Patient was able to match letters across cases and scripts, demonstrating basic symbol recognition and receiving a score of 4/4 on this task. -Patient was able to match numbers to fingers and dot patterns, receiving a score of 4/4 on this task. -Patient matched pictures to written words, demonstrating intact word identification. Patient received a score of 4/4 on this task. -Patient read aloud single words without difficulty. Patient read aloud single words within 0-3 seconds, demonstrating basic oral word reading- 15/15 score -Patient read aloud sentences correctly in 4 out of 5 trials and answered comprehension questions in 3/3 trials. -Patient read aloud sentences and paragraphs and selected the completion from a choice of 4 without assistance- 4/4 correct WRITING: -Patient was able to print and sign his name -Patient correctly wrote dictated letters and numbers. -Patient was able to write numbers 1-10 -Patient wrote primer words (i.e. cat; run; go; dog), words with regular phonics (i.e. apartment), and common irregular forms (i.e. cough, knife, nation). Patient received a scores of 4/4 when writing primer words, 2/2 when writing words targeting regular phonics, 3/3 when writing common irregular forms. -Well-formedness of letters scored as 14/14. Letters were all well-formed. Correctness of letter choice scored as 21/21. No evident impairments in motor facility of writing, scored as 14/14. Tests of Cognition: RBANS Clinical Impression: Impaired Observations: Additionally, Mr. Browne?s cognitive linguistic skills were evaluated using the RBANS: The Repeatable Battery for the Assessment of Neuropsychological Status (RBANS-Updated Form A). The RBANS assesses aspects of cognitive memory, language, and attention skills. The RBANS is considered a screening battery for cognitive function used with adolescents and adults, ages 12 to 89 years. Composite domains assessed in this evaluation are: Immediate Memory, Visuospatial/Constructional, Language, Attention, and Delayed Memory. Assessed domains and their scores are summarized below: IMMEDIATE MEMORY: These subtests assess an individual?s ability to remember a small amount of information immediately after it is presented. Mr. Browne was presented with a list of 10 spoken words and was instructed to repeat back as many words as he could remember from the list (List Learning). He initially recalled 1 item from the list of 10. After 3 repetitions, he recalled up to 4 items on the list, indicating that verbal repetition seems to facilitate his recall to some degree. After listening to a spoken paragraph, Mr. Browne was instructed to re-tell the story with as much detail as he could remember (Story memory). He exhibited more difficulty recalling information from a narrative, and recalled 1-2 specific details from the story, even with repetition. List Learning Total Score: 12 Scaled Score: 2 Interpretation: Extremely Low Story Memory Total Score: 3 Scaled Score: 1 Interpretation: Extremely Low Immediate Memory Index score: 44 Interpretation: Extremely Low VISUOSPATIAL/CONSTRUCTIONAL: These subtests assess an individual?s visuospatial skills and perception of spatial relationships. Mr. Browne was first instructed to draw an accurate copy of a figure presented to him (Figure Copy). Mr. Browne included most components in his copy with accurate placement. His drawing lacked just 2 details from the original copy. Mr. Browne was able to identify lines that matched based on orientation and placement in most trials (Line Orientation). Visuo-spatial skills are a relative strength for him. Figure Copy Total Score: 16 Scaled Score: 6 Interpretation: Low Average Line Orientation Total Score: 18 Percentile Group: 51-75 Interpretation: Average Visuospatial/Constructional Index score: 92 Interpretation: Average LANGUAGE: These subtests assess an individual?s word retrieval skills. Mr. Browne correctly named line images in 9 out of 10 trials (Picture Naming). He was also instructed to name as many fruits and vegetables as he can in 60 seconds (Semantic Fluency) and named 13 items. Picture Naming Total Score: 9 Percentile Group: 17-25 Interpretation: Low Average Semantic Fluency Total Score: 13 Scaled Score: 4 Interpretation: Borderline Language Index score: 82 Interpretation: Low Average ATTENTION: These subtests assess an individual?s capacity to remember and manipulate both visually and orally presented information in short-term memory storage. Mr. Browne was first instructed to repeat back number series that were between 2-9 digits long (Digit Span). He recalled digit series of up to 7 digits. Mr. Browne was also instructed to code markings with numbers (Coding). He coded 25 markers, making errors on several symbols which were similar, but differed in their orientation or placement. Digit Span Total Score: 11 Scaled Score: 11 Interpretation: Average Coding Total Score: 25 Scaled Score: 3 Interpretation: Extremely Low Attention Index score: 82 Interpretation: Low Average DELAYED MEMORY: These subtests assess an individual?s retrieval of information from long-term memory. Mr. Browne exhibited difficulty recalling information that was presented to him at the beginning of the testing period. He stated, ?I don?t remember any of it.? He did not recall any items from the list nor details from the story that had been previously presented. He was then asked to recognize items from the list by indicating whether or not a given word was on that list (List Recognition). He indicated 14/20 words which were on the list, stating, ?I?m guessing on some of them now.? The remaining subtest, Figure Recall, was not completed due to time constraints. Nevertheless, it was apparent that Mr. Browne demonstrates challenges in his delayed recall. List Recall Total Score: 0 Percentile Group: <2 Interpretation: Extremely Low List Recognition Total Score: 14 Percentile Group: <2 Interpretation: Extremely Low Story Recall Total Score: 0 Scaled Score: 1 Interpretation: Extremely Low Keira Weir (1998). Repeatable Battery for the Assessment of Neuropsychological Status [Manual]. ZONIA Anglin: Jian. Impressions and Recommendations Summary: Impact on Daily Function/Activity Limitations: Daily Activities: Mild Interpersonal Interactions: Mild Education: Mild Employment: Mild Community: Mild Prognosis for Improvement: Good Comment: Patient motivation, stimulability for treatment Recommendation for Speech Therapy: Outpatient Speech Therapy Modified Barium Swallow Study - Outpatient Mr. Browne presents with mild dysarthria, characterized by difficulties producing multisyllabic words, consonant clusters, and fricative and affricate sounds. He also demonstrates a mild to moderate cognitive linguistic impairment, with mild anomia and moderate difficulties in short-term memory. Based on patient?s performance on RBANS and BDAE, the following areas of weakness were identified as treatment targets: story memory at the paragraph level, immediate auditory recall (digits, addresses), delayed memory, and word finding. Additionally, he would benefit from further assessment of dysarthria. ROAD TESTER recommends a referral for patient to have an instrumental swallow evaluation (i.e. MBSS), given Mr. Browne?s reports of persistent choking episodes since his stroke. Frequency/Duration: Mr. Browne would benefit from outpatient treatment once weekly x 12 sessions to work on the following goals: Date Range for Service Requested: Time to Reassess: 6 months Longterm Goals: 1.) Mr. Browne will utilize a variety of word-finding strategies at the conversational level with minimal assistance in >80% opportunities presented to him. 2.) Mr. Browne will utilize compensatory strategies to assist (immediate and delayed) short-term memory in 80% of opportunities independently. Short Term Goals: Goal # : 1.2. Mr. Browne will produce a minimum of 4 different features, when presented with a word using semantic feature analysis (SFA), given minimal verbal prompts, with 80% accuracy. Goal Status: New Goal Goal# : 2.1. Mr. Browne will recall page-level information and answer questions about the material at 80% accuracy given occasional visual cues after a 30-minute delay. 2.2. Mr. Browne will use internal memory strategies (i.e. rehearsal, association, visualization) to recall 5-6 items at 80% accuracy when provided with minimal verbal cues. Goal Status: New Goal Goal # : 2.3. Mr. Browne will write down relevant notes while presented with auditory instructions (i.e. voicemail message) and recall 80% of the information given use of written notes only. 2.4. Mr. Browne will electively use an pat or tech device to record and retrieve needed information in 4 out of 5 contexts with minimal verbal prompting. Goal Status: New Goal Patient Education: Completed: Yes Patient/Caregiver Education: Described Results of Evaluation Patient expressed understanding of evaluation Comments/Barriers to Learning: It was a pleasure meeting and working with Mr. Browne. Please do not hesitate to contact [facility] if we can be of further assistance. Puppet Maker Clinican/Clinical Fellow: No Supervisory Statement: N/A Speech Language Pathologist: Carly Aranda M.A., CCC-ROAD TESTER
== END 2024-07-02 14:02 | disposition still patient (30) ==
LOC: HO.SH 12:32
PROVIDERS: Visit Provider Internal Medicine
DX: I63.9 Cerebral infarction, unspecified (principal); I10 Essential (primary) hypertension; E78.5 Hyperlipidemia, unspecified
CPT/HCPCS: 92523

== ENCOUNTER 2024-07-03 10:28 | Outpatient (AMB) | payer OTHER, SELFPAY ==
--- NOTE | 2024-07-03 10:53 | A.OFFPC_ITS ---
Vital Signs 07/03/24 11:10 Height 5 ft 11 in Weight 255 lb BMI 35.6 BP 134/78 Blood Pressure Location Lt brachial Position Sitting Pulse 69 Pulse Source Pulse Oximeter Pulse Oximetry (%) 96 Oxygen Delivery Method Room Air Intake Visit Reasons: Stroke F/U Allergies citalopram Adverse Reaction (Unknown, Verified 07/03/24 11:10) diarrhea Medication List - Last Reconciled 07/03/24 by Eleonora Hector MD amlodipine 10 mg PO DAILY aspirin 81 mg PO DAILY atorvastatin 40 mg PO DAILY buspirone 10 mg PO BID clopidogrel 75 mg PO DAILY lisinopril 40 mg PO DAILY nebivolol 20 mg PO DAILY nicotine 21 mg transdermal DAILY triamterene-hydrochlorothiazid 37.5-25 mg 1 tab PO DAILY Tobacco use date assessed: 05/26/24 Dental Screening Dental Screen Date: 04/22/24 HPI Stroke F/U HPI Details PATIENT PRESENTS FOR THE FOLLOW-UP of hypertension hyperlipidemia status post stroke, he started speech therapy and will have swallow evaluation. He reports feeling tired with low energy and depressed but not suicidal. Patient has been trying to find a counselor unsuccessfully. Anxiety is better controlled on buspirone. Patient does not feel strong enough to go back to work next month and will like to extend his leave of absence for another 2 months. [facility] Medical History (Updated 07/02/24 @ 16:06 by Eleonora Hector MD) Alcohol use disorder Cocaine use disorder Myocardial infarction Annual physical exam Hyperlipidemia HTN (hypertension) Anxiety and depression Surgical History S/P cardiac cath History of meniscal tear Family History Father HTN (hypertension) Stroke Mother Alcoholism Maternal Grandfather No problems noted. Maternal Grandmother No problems noted. Paternal Grandfather No problems noted. Paternal Grandmother Stroke Social History Household Members: Family Housing: Apartment Do you presently have visiting nurse or other home services: No Alcohol intake: current Alcohol intake frequency: other Alcohol type: beer Patient Tobacco Use Status: Former Tobacco user (04/10/24) Tobacco use type: Cigarette Cigarettes Per Day: 10 Years Smoked: 20 e-Cigarette/Vaping Use: Never Used service: No Current occupational status: employed Cognitive needs: No Hearing needs: No Vision needs: Yes Questionnaire Thrive Questionnaire Date Thrive assessed: 05/26/24 I am a: Patient What is your living situation today?: I have a steady place to live Within the past 12 months, did the food you bought not last and you didn't have the money to get more?: Sometimes True Within the past 12 months, did you worry whether your food would run out before you got money to buy more?: Never true Do you have trouble paying for medicines?: Yes Do you have trouble getting transportation to medical appointments?: No Do you have trouble paying your heating and electricity bill?: No Do you have trouble taking care of your child, family member or friend?: No Do you have trouble with day-to-day activities such as bathing, preparing meals, shopping, managing finances, etc.?: No Are you currently unemployed and looking for a job?: No Are you interested in more education?: No Please select the resources that you would like help with: None Currently or been in a relationship where the following occur: No concerns reported THRIVE Score: 1 RAMBO-7 AMB Questionnaire RAMBO-7 Date RAMBO - 7 assessed: 05/26/24 Source: Developed by Drs. Pasha Denise, Oralia Edward, Fabio Ho and colleagues, with an educational obinna from [employer]. Review of Systems Const All systems reviewed & are unremarkable except as noted in HPI and below Eyes Reports no additional complaints ENT Reports no additional complaints Card Reports no additional complaints Resp Reports no additional complaints GI Reports no additional complaints Physical exam (Primary Care) Vital Signs: Last Vital Signs Pulse 69 07/03/24 11:10 BP 134/78 07/03/24 11:10 Pulse Ox 96 07/03/24 11:10 Oxygen Delivery Method Room Air 07/03/24 11:10 BMI result Body Mass Index 35.6 Tobacco/Smoking Status: Tobacco use Status Tobacco use date assessed 05/26/24 07/03/24 10:53 Patient Tobacco Use Status Former Tobacco user (04/10/24 07/03/24 10:53 ) Tobacco use type Cigarette 07/03/24 10:53 e-Cigarette/Vaping Use Never Used 07/03/24 10:53 Thrive Assessment: Date of Thrive Assessment Date Thrive assessed 05/26/24 07/03/24 10:53 Currently or been in a relationship where the following occur: No concerns reported Const General: no acute distress HENMT Head: Yes normal to inspection Eyes General: appearance normal, both eyes and all related structures Neck Neck: Yes supple Resp Effort & Inspection: normal respiratory effort Auscultation: clear to auscultation bilaterally Cardio Rhythm: regular rhythm Heart sounds: S1 normal heart sound present and S2 normal heart sound present GI Inspection: Yes normal to inspection Palpation (GI): Soft to palpation Percussion: Yes normal to percussion Auscultation: normal bowel sounds Assessment and Plan Assessment & Plan (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: Comment: L sided weakness 04/10/2024 Code(s): I69.362 - 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
[2024-07-03 11:10] VITALS: BP 134/78; PULSE 69; O2SAT 96; BMI 35.6
== END 2024-07-03 12:12 | disposition home or self-care (01) ==
PROVIDERS: PCP Internal Medicine; Visit Provider Internal Medicine
DX: I69.362 Other paralytic syndrome following cerebral infarction affecting left dominant side (principal); I10 Essential (primary) hypertension; F41.9 Anxiety disorder, unspecified; F32.9 Major depressive disorder, single episode, unspecified; E78.5 Hyperlipidemia, unspecified

== ENCOUNTER → 2024-07-03 10:28 | Outpatient (BNVA) | payer OTHER, SELFPAY | PROVIDERS: PCP Internal Medicine; Visit Provider Internal Medicine | DX: I69.362 Other paralytic syndrome following cerebral infarction affecting left dominant side (principal); I10 Essential (primary) hypertension; F41.9 Anxiety disorder, unspecified; F32.9 Major depressive disorder, single episode, unspecified; E78.5 Hyperlipidemia, unspecified; Z79.899 Other long term (current) drug therapy ==

== ENCOUNTER 2024-07-09 10:12 | Outpatient (REF) | payer OTHER, SELFPAY ==
--- NOTE | ~2024-07-09 | FL_ITS ---
EXAMINATION: Modified Barium Swallows CLINICAL INFORMATION: Dysphagia COMPARISON: None TECHNIQUE: Modified barium swallow was performed under lateral fluoroscopy with patient in standing position. Barium mixed with solids and liquids of different consistencies was administered by the speech pathologist. Examination was recorded in the fluoroscopy suite. FINDINGS: Trace laryngeal penetration observed with thin barium. No subglottic aspiration was observed. There is mild cricopharyngeal achalasia present. FLUOROSCOPY TIME: 50 seconds Number of Spot Images: N/A DOSE AREA PRODUCT: 486.7 uGy-m2 (microgray-meter squared) FL/FL barium swallow modified IMPRESSION: 1. Trace laryngeal penetration with thin barium. No subglottic aspiration was observed. 2. Mild cricopharyngeal achalasia. Refer to the speech therapy report for further clarification This procedure was performed by Charles Beverly PA-C, and supervised by Dr. Hinton Electronically signed by: Severiano Hinton MD 07/10/2024 04:07 PM EDT
--- NOTE | 2024-07-14 13:50 | MHC.SL.IMP ---
Date of Plan of Treatment: 07/09/24 Onset of Symptoms/Illness: 04/10/24 Date Treatment Started: 07/09/24 Admitting Diagnosis: CVA (s/p 04/10/24) Primary Speech & Language Diagnosis: R13.10 Dysphagia Secondary Speech & Language Diagnosis: R41.841 Cognitive communication disorder Reason for Today's Visit: 14031 Modified Barium Swallow Study Pre-evaluation Dietary Consistencies: Regular Pre-evaluation Liquid Consistency: [place] Thick Pre-evaluation Medication Administration: Whole with Liquid Medical History: Past Medical History includes: Hyperlipidemia HTN (hypertension) Anxiety and depression Oral Motor Exam Facial Symmetry: Normal for Patient Symmetrical Oral Expression Ability: Mild Impairment Is patient able to manage secretions?: Yes Is patient able to produce volitional cough?: Yes Food and Liquid Trials: Oral Impairment: Lip Closure: Did not test Oral Impairment: Tongue Control During Bolus Hold: 0=Cohesive bolus between tongue to palatal seal Oral Impairment: Bolus Preparation/Mastication: 0=Timely and efficient chewing and mashing Oral Impairment: Bolus Transport/Lingual Motion: 0=Brisk tongue motion Oral Impairment: Oral Residue: 2=Residue collection on oral structures Oral Impairment:Initiation of Pharyngeal Swallow: 3=Bolus head in pyriforms Pharyngeal Impairment: Soft Palate Elevation: 0=No bolus between soft palate (SP)/pharyngeal wall (PW) Pharyngeal Impairment: Laryngeal Elevation: 0=Complete superior movement of thyroid cartilage (see description) Pharyngeal Impairment: Anterior Hyoid Excursion: 1=Partial anterior movement Pharyngeal Impairment: Epiglottic Movement: 1=Partial inversion Pharyngeal Impairment: Laryngeal Vestibular Closure:: 0=Complete: no air/contrast in laryngeal vestibule Pharyngeal Impairment: Pharyngeal Stripping Wave: 0=Present: complete Pharyngeal Impairment: Pharyngeal Contraction: Did not test Pharyngeal Impairment: Pharyngoesophageal Segment Openin=Partial distention/partial duration: partial obstruction of flow Pharyngeal Impairment: Tongue Base (TB) Retraction: 2=Narrow column of contrast/air between TB and posterior PW Pharyngeal Impairment: Pharyngeal Residue: 2=Collection of residue within or on pharyngeal structures Pharyngeal Impairment: Esophageal Clearance Upright Position: Did not test Impressions and Recommendations Clinical Observations: Lip closure for intraoral bolus containment could not be assessed due to logistical reasons not related to physiologic impairment. Tongue control during bolus hold maintained a cohesive bolus held between tongue to palate seal. Bolus preparation and mastication Bolus transport/lingual motion was with brisk tongue motion. Oral residue was a collection on oral structures. Initiation of the pharyngeal swallow occurred when the bolus head was in the pyriform sinuses. Soft palate elevation resulted in no bolus between the soft palate and the pharyngeal wall. Laryngeal elevation demonstrated complete superior movement of the thyroid cartilage with complete approximation of the arytenoids to the epiglottic petiole. Anterior hyoid excursion demonstrated partial anterior movement. Epiglottic movement resulted in partial inversion. Laryngeal vestibular closure was complete, as indicated by no air or contrast within the laryngeal vestibule at the height of the swallow. Pharyngeal stripping wave was present and complete. Pharyngeal contraction could not be determined due to logistical reasons not related to physiologic impairment. Pharyngoesophageal segment opening demonstrated partial distension/partial duration, with partial obstruction of bolus flow. Tongue base retraction allowed a narrow column of contrast or air between the retracted tongue base and the posterior pharyngeal wall. Pharyngeal residue was a collection of residue within or on pharyngeal structures. Esophageal clearance in the upright position could not be assessed due to logistical reasons not related to physiologic impairment. Oral Impairment Score: 10 (absence of score, component 1) Pharyngeal Impairment Score: 7 (absence of score, component 13) Esophageal Impairment Score: --- (absence of score, component 17) Laryngeal Penetration and Aspiration: Neither penetration nor aspiration was observed in today's study with Cookie, Pudding-thick, Thin. SUMMARY: Pt was provided Thin Liquids, Puree Solids, Ground Solids and Regular Solids. Thin Liquids were initially assessed with cues for a tongue hold, but were progressed to consecutive sips. Component 1: Lip Closure could not be assessed because of the camera position. Components 13 and 17 could not be assessed as an A/P view was not indicated by his history or performance. Pt reports occasional cough, and that he has been more diligent with how and what he eats. Today's performance does not warrant further dietary restrictions. Pt is recommended to continue with his current diet level and compensatory strategies and re-assess if problems worsen or persistent. Liquid Intake Recommendation: Thin Liquid Intake Strategies: Small Sips No Straws Dietary Recommendations: Regular Medication Administration: Whole with Liquid Please contact the pharmacy regarding appropriate crushable or liquid drug formulations that are available whenever modified delivery is recommended. Compensatory Strategies Recommended: Sitting Upright (90 deg) Liquids from Cup Alternate Liquids/Solids Rate of Ingestion Change Avoid Specific Foods Supervision during eating and or drinking: Intermittent Supervision Recommended Treatments: Compens. Strategy Educat. Recommendation for Speech Therapy: Outpatient Speech Therapy Text Comment: Continue outpatient speech therapy addressing Speech, Language and Cognition. Timeline to reassess: PRN Level Vial Inspector And Tester Clinician/Clinical Fellow: No Supervisory Statement: N/A Speech Language Pathologist: Paco Chambers M.A., CCC-EMPLOYMENT APPEALS EXAMINER
== END 2024-07-09 10:13 | disposition home or self-care (01) ==
LOC: HO.XRAY 10:12
PROVIDERS: Visit Provider Internal Medicine
DX: R13.10 Dysphagia, unspecified (principal)
CPT/HCPCS: 74230; 92611

== ENCOUNTER → 2024-07-09 10:30 | Outpatient (BNV) | payer OTHER, SELFPAY | PROVIDERS: Visit Provider Radiology Diagnostic Radiology | DX: R13.10 Dysphagia, unspecified (principal) | CPT/HCPCS: 74230 ==

== ENCOUNTER 2024-08-20 07:18 | Outpatient (REF) | payer OTHER, SELFPAY ==
[2024-08-20 10:07] LABS: MANUAL DIFF FLAG NO
[2024-08-20 10:19] LABS: Basophils Absolute Auto 0.1 X10*3/uL (0.0-0.2); Basophils Percent Auto 1.2 % (0-2); Eosinophils Absolute Auto 0.3 X10*3/uL (0.0-0.4); Eosinophils Percent Auto 2.8 % (0-4); Hematocrit 38.7 % (42.0-52.0); Imm Gran Abs Auto 0.04 X10*3/uL (0.00-0.03); Imm Gran Pct Auto 0.4 % (0.0-0.4); Lymphocytes Absolute Auto 3.1 X10*3/uL (1.2-4.9); Lymphocytes Percent Auto 29.7 % (20-40); Mean Corpuscular HGB Conc 33.6 g/dl (31.0-36.0); Mean Corpuscular Hemoglobin 29.2 pg (27.0-33.0); Mean Platelet Volume 9.7 fL (9.4-12.4); Monocytes Absolute Auto 0.8 X10*3/uL (0.1-1.2); Monocytes Percent Auto 7.9 % (2-11); Neutrophils Absolute Auto 6.1 x10*3/uL (2.0-8.3); Platelet Count 318 X10*3/uL (160-400); Red Blood Count 4.45 X10*6/uL (4.60-5.80); Red Cell Distribution Width 13.2 % (11.0-16.0); White Blood Count 10.4 X10*3/uL (4.8-10.8)
[2024-08-20 10:29] LABS: Estimated Average Glucose 126 mg/dL; Hemoglobin A1C 146.3601 umol/L; Total Hemoglobin (HGBA1C) 3486.0202 umol/L
[2024-08-20 10:40] LABS: Alanine Aminotransferase 30 U/L (0-40); Albumin Level 4.5 g/dL (3.5-5.0); Alkaline Phosphatase 80 U/L (39-117); Anion Gap 13 (12-20); Aspartate Amino Transferase 30 U/L (5-37); Bilirubin Total 0.6 mg/dL (0.0-1.0); Blood Urea Nitrogen 13 mg/dL (9-16); Calcium 9.7 mg/dL (8.4-10.2); Carbon Dioxide 28 mmol/L (22-29); Chloride 103 mmol/L (96-108); Cholesterol 104 mg/dL (<200); Estimated Glomerular Filt Rate > 60; Glucose Fasting 114 mg/dL (60-99); HDL Cholesterol 32 mg/dL (>40); LDL Cholesterol Calculated 51 mg/dL (<100); Potassium 3.5 mmol/L (3.3-5.1); Sodium 140 mmol/L (135-145); Total Protein 7.6 g/dL (6.5-8.0); Triglycerides 105 mg/dL (<150)
[2024-08-20 11:14] LABS: Creatinine Urine 181.01 mg/dL
== END 2024-08-20 07:19 | disposition home or self-care (01) ==
LOC: HO.HMGCLDS 07:18
PROVIDERS: PCP Internal Medicine; Visit Provider Internal Medicine
DX: I10 Essential (primary) hypertension (principal); F41.9 Anxiety disorder, unspecified; F32.9 Major depressive disorder, single episode, unspecified; E78.5 Hyperlipidemia, unspecified; R73.9 Hyperglycemia, unspecified
CPT/HCPCS: 36415; 80053; 80061; 82043; 82570; 83036; 85025

== ENCOUNTER 2024-08-26 12:14 | Outpatient (AMB) | payer OTHER, SELFPAY ==
[2024-08-26 12:32] VITALS: BP 122/64; PULSE 64; O2SAT 96; BMI 34.2
--- NOTE | 2024-08-26 12:32 | A.OFFPC_ITS ---
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 [facility] Medical History Alcohol use disorder Cocaine use disorder Myocardial infarction Annual physical exam Hyperlipidemia HTN (hypertension) Anxiety and depression Surgical History S/P cardiac cath History of meniscal tear Family History Father HTN (hypertension) Stroke Mother Alcoholism Maternal Grandfather No problems noted. Maternal Grandmother No problems noted. Paternal Grandfather No problems noted. Paternal Grandmother Stroke Social History Household Members: Family Housing: Apartment Do you presently have visiting nurse or other home services: No Alcohol intake: current Alcohol intake frequency: other Alcohol type: beer Patient Tobacco Use Status: Former Tobacco user (04/10/24) Tobacco use type: Cigarette Cigarettes Per Day: 10 Years Smoked: 20 e-Cigarette/Vaping Use: Never Used service: No Current occupational status: employed Cognitive needs: No Hearing needs: No Vision needs: Yes Questionnaire Thrive Questionnaire Date Thrive assessed: 08/26/24 I am a: Patient What is your living situation today?: I have a steady place to live Within the past 12 months, did the food you bought not last and you didn't have the money to get more?: Sometimes True Within the past 12 months, did you worry whether your food would run out before you got money to buy more?: Never true Do you have trouble paying for medicines?: Yes Do you have trouble getting transportation to medical appointments?: No Do you have trouble paying your heating and electricity bill?: No Do you have trouble taking care of your child, family member or friend?: No Do you have trouble with day-to-day activities such as bathing, preparing meals, shopping, managing finances, etc.?: No Are you currently unemployed and looking for a job?: No Are you interested in more education?: No Please select the resources that you would like help with: None Currently or been in a relationship where the following occur: No concerns reported THRIVE Score: 1 RAMBO-7 AMB Questionnaire RAMBO-7 Date RAMBO - 7 assessed: 05/26/24 Source: Developed by Drs. Pasha Denise, Oralia Edward, Fabio Ho and colleagues, with an educational obinna from [employer]. Review of Systems Const All systems reviewed & are unremarkable except as noted in HPI and below Card Reports no additional complaints Resp Reports no additional complaints GI Reports no additional complaints Reports no additional complaints Physical exam (Primary Care) Vital Signs: Last Vital Signs Pulse 64 08/26/24 12:32 BP 122/64 08/26/24 12:32 Pulse Ox 96 08/26/24 12:32 Oxygen Delivery Method Room Air 08/26/24 12:32 BMI result Body Mass Index 34.2 Tobacco/Smoking Status: Tobacco use Status Tobacco use date assessed 05/26/24 08/26/24 12:33 Patient Tobacco Use Status Former Tobacco user (04/10/24 08/26/24 12:33 ) Tobacco use type Cigarette 08/26/24 12:33 e-Cigarette/Vaping Use Never Used 08/26/24 12:33 Thrive Assessment: Date of Thrive Assessment Date Thrive assessed 08/26/24 08/26/24 12:33 Currently or been in a relationship where the following occur: No concerns reported Const General: no acute distress HENMT Head: Yes normal to inspection Throat: Yes posterior oropharynx normal Eyes General: appearance normal, both eyes and all related structures Neck Neck: Yes no lymphadenopathy and Yes supple Resp Effort & Inspection: normal respiratory effort Auscultation: clear to auscultation bilaterally Cardio Rhythm: regular rhythm Heart sounds: S1 normal heart sound present and S2 normal heart sound present GI Inspection: Yes normal to inspection Palpation (GI): Soft to palpation Percussion: Yes normal to percussion Auscultation: normal bowel sounds Coding Level of Care Code Est Pt Level 4 (56417) Diagnoses Anemia D64.9 Annual physical exam Z00.00 HTN (hypertension) I10 Hyperlipidemia E78.5 Hyperglycemia R73.9 Assessment & Plan Assessment & Plan (1) Anemia: Code(s): D64.9 - Anemia, unspecified Category: Medical Plan: For borderline anemia check iron count and B12 level (2) Annual physical exam: Code(s): Z00.00 - Encounter for general adult medical examination without abnormal findings Category: Medical Plan: Well-balanced diet and regular exercise discussed with the pt (3) HTN (hypertension): Code(s): I10 - Essential (primary) hypertension Category: Medical Plan: Continue current medications (4) Hyperlipidemia: Code(s): E78.5 - Hyperlipidemia, unspecified Category: Medical Plan: Continue statin (5) Hyperglycemia: Code(s): R73.9 - Hyperglycemia, unspecified Category: Medical Plan: A1c is 6.0, ADA diet increase physical activity weight loss discussed with the patient follow-up in 4 months with a fasting labs before Orders: Orders Vitamin B12 and Folate Today D64.9 - Anemia, unspecified Comprehensive [place]. Panel Fast 4 Months E78.5 - Hyperlipidemia, unspecified, I10 - Essential (primary) hypertension, R73.9 - Hyperglycemia, unspecified, Z00.00 - Encounter for general adult medical examination without abnormal findings Complete Blood Count Auto Diff 4 Months E78.5 - Hyperlipidemia, unspecified, I10 - Essential (primary) hypertension, R73.9 - Hyperglycemia, unspecified, Z00.00 - Encounter for general adult medical examination without abnormal findings Microalbumin, Random (w Creat) 4 Months E78.5 - Hyperlipidemia, unspecified, I10 - Essential (primary) hypertension, R73.9 - Hyperglycemia, unspecified, Z00.00 - Encounter for general adult medical examination without abnormal findings IRON PROFILE Today D64.9 - Anemia, unspecified Hemoglobin A1c 4 Months E78.5 - Hyperlipidemia, unspecified, I10 - Essential (primary) hypertension, R73.9 - Hyperglycemia, unspecified, Z00.00 - Encounter for general adult medical examination without abnormal findings Lipid Panel 4 Months E78.5 - Hyperlipidemia, unspecified, I10 - Essential (primary) hypertension, R73.9 - Hyperglycemia, unspecified, Z00.00 - Encounter for general adult medical examination without abnormal findings
== END 2024-08-26 13:23 | disposition home or self-care (01) ==
PROVIDERS: PCP Internal Medicine; Visit Provider Internal Medicine
DX: D64.9 Anemia, unspecified (principal); Z00.00 Encounter for general adult medical examination without abnormal findings; I10 Essential (primary) hypertension; E78.5 Hyperlipidemia, unspecified; R73.9 Hyperglycemia, unspecified

== ENCOUNTER 2024-08-26 12:14 | Outpatient (REF) | payer OTHER, SELFPAY ==
[2024-08-26 16:36] LABS: Iron 91 mcg/dL (45-160); Percent Iron Saturation 43 % (15-50); Total Iron Binding Capacity 212 mcg/dL (228-428); Unsaturated Iron Binding 121 ug/dL
[2024-08-26 17:07] LABS: Folate 15.4 ng/mL (> or = 4.0); Vitamin B12 421 pg/mL (200-900)
== END 2024-08-26 12:15 | disposition home or self-care (01) ==
LOC: HO.HMGCLDS 12:14
PROVIDERS: PCP Internal Medicine; Visit Provider Internal Medicine
DX: D64.9 Anemia, unspecified (principal)
CPT/HCPCS: 36415; 82607; 82746; 83540

== ENCOUNTER 2024-09-25 15:00 | Outpatient (RCR) | payer OTHER, SELFPAY ==
--- NOTE | 2024-09-26 14:35 | MHC.SL.SOA ---
Referring Provider: Eleonora Hector MD Reason for Referral: Speech difficulties after stroke Date of Plan of Treatment:07/09/24 Onset of Symptoms/Illness:04/10/24 Date Treatment Started:07/09/24 Medical Diagnosis:I63.9 Cerebral infarction,unspecified I10 Essential (primary) hypertension E78.5 Hyperlipidemia, unspecified Primary Speech Language Diagnosis:R47.01 Aphasia Secondary Speech Language Diagnosis:R41.841 Cognitive communication disorder Number of Authorized Visits Remainin Reason for Visit:59222 Individual Treatment Subjective:Saman arrived on time for his last speech therapy appointment. Saman kindly expressed gratitude for the help he has received through speech therapy. Saman shares he has had a good week despite falling ill for a few days. He reports he has been doing well at work and continues to write reminder notes and use calendars. He was fully attentive for the entirety of the session. Background: Mr. Browne is a 53 year old male referred for a speech-language evaluation by Eleonora Hector MD of [facility] in [place], [place], due to persistent concerns related to his speech, language, and cognition post-stroke. Patient was admitted to the hospital on 04/10/24 with acute stroke, presenting with slurred speech, right side facial droop, and left sided weakness. His brain MRI that day showed, ?late acute to subacute infarcts of the right tena radiata/lentiform nucleus and posterior limb of the left internal capsule? and ?chronic region of encephalomalacia in the right superior frontal gyrus. Chronic lacunar infarcts of the deep nuclei and brainstem.? Patient was seen by speech therapy while hospitalized and was recommended a regular texture diet with nectar thick liquids after he was observed to be coughing on thin liquids. Patient reports that he continues to have trouble swallowing and has choking episodes on saliva and food. He says he has been ?blending his food? and prefers to eat smoothies lately, but has not continued use of the thickener. At discharge, he was recommended continued speech therapy for the treatment and further evaluation of dysphagia and mild dysarthria. Patient reports he still feels that his speech sounds slurred and that he drools sometimes. Additionally, he reports difficulties with memory, problem solving, focusing, and finding words. He says that when he goes grocery shopping, he has to refer to his devices to help him remember what to buy and exerts more effort trying to focus on the task at hand. Mr. Browne reports he had completed some high school and had to repeat a grade before. Mr. Browne lives with other family members in a private residence. He has two children, aged 15 and 7. Mr. 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 He is on FMLA and is waiting for medical clearance to return to work after his stroke. Objective: 1.2. Mr. Browne will produce a minimum of 4 different features, when presented with a word using semantic feature analysis (SFA), given minimal verbal prompts, with 80% accuracy. Goal Met: Saman employed circumlocution to describe target words in >90% of trials with minimal assistance. His descriptions were specific and robust, and included 4+ details. 2.1. Mr. Browne will recall page-level information and answer questions about the material at 80% accuracy given occasional visual cues after a 30-minute delay. Goal Met: Mr. Browne summarized and recalled specific details from written articles (2-3 paragraphs) at 85% accuracy when provided with minimal to no verbal cues. 2.2. Mr. Browne will use internal memory strategies (i.e. rehearsal, association, visualization) to recall 5-6 items at 80% accuracy when provided with minimal verbal cues. Goal Met: Saman recalled 3-6 word lists with >90% accuracy and minimal assistance. He performed mental manipulation on 3-5 word lists (i.e. repeating in reverse or alphabetical order) with 83% accuracy and minimal assistance. 2.3. Mr. Browne will write down relevant notes while presented with auditory instructions (i.e. voicemail message) and recall 80% of the information given use of written notes only. Goal Met: Mr. Browne writes relevant notes in calendars and notebooks he keeps at home and at work. He demonstrated his note taking ability during the session while listening to spoken paragraphs and then answered WH-questions with >90% accuracy. 2.4. Mr. Browne will electively use an pat or tech device to record and retrieve needed information in 4 out of 5 contexts with minimal verbal prompting. Goal Discharged: Mr. Browne prefers to use written method over devices to record notes and appointments. Assessment: Mr. Browne has made steady progress in treatment. He reports he has been getting back into the routine at work, which he enjoys. He writes notes in his notebooks at work as needed, but otherwise he is very independent and does not feel his word finding and memory difficulties affect him at work. He also uses calendars and notebooks at home to keep track of bills, log appointments, and write to-do lists. Mr. Browne has demonstrated back internal memory strategies during structured speech therapy. He says he has been using these techniques on his own to help him remember: repeating information to himself few times, visualizing, making associations, etc. Notes: Saman has met his goals and expressed that he is satisfied with his progress. He is discharged from outpatient speech therapy at this time. It has been a pleasure working with Saman. Please do not hesitate to contact the [facility] if we can be of further assistance in his care. Plan: Goal # : 1.2. Mr. Browne will produce a minimum of 4 different features, when presented with a word using semantic feature analysis (SFA), given minimal verbal prompts, with 80% accuracy. 2.2. Mr. Browne will use internal memory strategies (i.e. rehearsal, association, visualization) to recall 5-6 items at 80% accuracy when provided with minimal verbal cues. Status of Goal: Goals Met Goal # : 2.1. Mr. Browne will recall page-level information and answer questions about the material at 80% accuracy given occasional visual cues after a 30-minute delay. 2.3. Mr. Browne will write down relevant notes while presented with auditory instructions (i.e. voicemail message) and recall 80% of the information given use of written notes only. 2.4. Mr. Browne will electively use an pat or tech device to record and retrieve needed information in 4 out of 5 contexts with minimal verbal prompting. Status of Goal: Goals Met Seen by: Graduate/Clinical Fellow: No Supervisory Statement: f_Reg Query Last Value , MHC.AU.SIGNATUR Speech Language Pathologist: Carly Aranda M.A., CCC-MECHANICAL SYSTEM TECHNICIAN
== END 2024-09-29 14:00 | disposition home or self-care (01) ==
LOC: HO.SH 15:00
PROVIDERS: Visit Provider Internal Medicine
DX: I63.9 Cerebral infarction, unspecified (principal); R47.01 Aphasia; R41.841 Cognitive communication deficit; I10 Essential (primary) hypertension; E78.5 Hyperlipidemia, unspecified
CPT/HCPCS: 92507

== ENCOUNTER 2024-12-25 13:37 | Outpatient (AMB) | payer OTHER, SELFPAY ==
[2024-12-25 13:55] VITALS: BP 128/72; PULSE 65; RESP 18; O2SAT 97; BMI 35.9
--- NOTE | 2024-12-25 13:55 | A.OFFPC_ITS ---
Vital Signs 12/25/24 13:55 Height 5 ft 11 in Weight 257 lb 2 oz BMI 35.9 BP 128/72 Blood Pressure Location Lt brachial Position Sitting Respiration 18 Pulse 65 Pulse Source Pulse Oximeter Pulse Oximetry (%) 97 Oxygen Delivery Method Room Air Intake Visit Reasons: 4 months follow up Intake Note: Pt is here today for 4 month follow up, also pt has concerns of pink eye in RT eye. Allergies citalopram Adverse Reaction (Unknown, Verified 12/25/24 13:57) diarrhea Medication List - Last Reconciled 12/25/24 by Eleonora Hector MD amlodipine 10 mg PO DAILY aspirin 81 mg PO DAILY atorvastatin 40 mg PO DAILY buspirone 10 mg PO BID clopidogrel 75 mg PO DAILY lisinopril 40 mg PO DAILY nebivolol 20 mg PO DAILY nicotine 21 mg transdermal DAILY sertraline (Zoloft) 50 mg PO DAILY triamterene-hydrochlorothiazid 37.5-25 mg 1 tab PO DAILY Tobacco use date assessed: 12/25/24 Dental Screening Dental Screen Date: 12/25/24 Did you have a dental visit in the last 12 months?: No Did you have a dental problem in the last 6 months where you did not have access to dental care?: No Was dental information given to patient?: Patient declined HPI 4 months follow up HPI Details Patient presents for the follow-up on hypertension hyperlipidemia, diet controlled diabetes, coronary artery disease chronic anxiety. Patient is morbid obese and has been decreasing caloric intake increasing physical activity unsuccessfully for the last 6 months. He is interested in trying GLP 1 agonist to facilitate weight loss involved with the risk of cardiovascular complications including LA or CVA and worsening diabetes COUNT INCLUDES THE [facility] Medical History (Updated 12/25/24 @ 15:25 by Eleonora Hector MD) Hyperglycemia Alcohol use disorder Cocaine use disorder Myocardial infarction Annual physical exam Hyperlipidemia HTN (hypertension) Anxiety and depression Surgical History S/P cardiac cath History of meniscal tear Family History Father HTN (hypertension) Stroke Mother Alcoholism Maternal Grandfather No problems noted. Maternal Grandmother No problems noted. Paternal Grandfather No problems noted. Paternal Grandmother Stroke Social History Household Members: Family Housing: Apartment Do you presently have visiting nurse or other home services: No Alcohol intake: current Alcohol intake frequency: other Alcohol type: beer Patient Tobacco Use Status: Former Tobacco user (04/10/24) Tobacco use type: Cigarette Cigarettes Per Day: 10 Years Smoked: 20 e-Cigarette/Vaping Use: Never Used service: No Current occupational status: employed Cognitive needs: No Hearing needs: No Vision needs: Yes Questionnaire PHQ-9 Over the last 2 weeks, how often have you been bothered by any of the following problems? 1. Little interest or pleasure in doing things: several days 2. Feeling down, depressed, or hopeless: not at all 3. Trouble falling or staying asleep, or sleeping too much: not at all 4. Feeling tired or having little energy: not at all 5. Poor appetite or overeating: not at all 6. Feeling bad about yourself - or that you are a failure or have let yourself or your family down: not at all 7. Trouble concentrating on things, such as reading the newspaper or watching television: not at all 8. Moving or speaking so slowly that other people could have noticed. Or the opposite - being so fidgety or restless that you have been moving around a lot more than usual: not at all 9. Thoughts that you would be better off or of hurting yourself in some way: not at all Total score: 1 Depression Screening Interpretation: Negative Depression Screening Done: Yes 45961 - PHQ-9 Billing: Yes Source: Developed by Drs. Pasha Denise, Oralia Edward, Fabio Ho and colleagues, with an educational obinna from [employer]. Thrive Questionnaire Date Thrive assessed: 12/25/24 I am a: Patient What is your living situation today?: I have a steady place to live Within the past 12 months, did the food you bought not last and you didn't have the money to get more?: Never true Within the past 12 months, did you worry whether your food would run out before you got money to buy more?: Never true Do you have trouble paying for medicines?: No Do you have trouble getting transportation to medical appointments?: No Do you have trouble paying your heating and electricity bill?: No Do you have trouble taking care of your child, family member or friend?: No Do you have trouble with day-to-day activities such as bathing, preparing meals, shopping, managing finances, etc.?: No Are you currently unemployed and looking for a job?: No Are you interested in more education?: Yes Please select the resources that you would like help with: None Currently or been in a relationship where the following occur: No concerns r eported THRIVE Score: 0 AUDIT C Alcohol Use Questionnaire (AUDIT-C) 1. How often do you have a drink containing alcohol?: 2-4 times a month 2. How many drinks containing alcohol do you have on a typical day when you are drinking?: 1 or 2 3. How often do you have six or more drinks on one occasion?: Never Total Score: 2 RAMBO-7 AMB Questionnaire RAMBO-7 Date RAMBO - 7 assessed: 12/25/24 Feeling nervous, anxious, or on edge: 0 = Not at all Not being able to stop or control worryin = Not at all Worrying too much about different things: 0 = Not at all Trouble relaxin = Not at all Being so restless that it is hard to sit still: 0 = Not at all Becoming easily annoyed or irritable: 0 = Not at all Feeling afraid as if something awful might happen: 0 = Not at all Total RAMBO-7 score (0-4 normal; 5-9 mild; 10-14 moderate; 15-21 severe): 0 Source: Developed by Drs. Pasha Denise, Oralia Edward, Fabio Ho and colleagues, with an educational obinna from [employer]. RAMBO-7 Assessment Billing RAMBO-7 Assessment Tool: RAMBO-7 Assessment 91183 Review of Systems Const All systems reviewed & are unremarkable except as noted in HPI and below ENT Reports no additional complaints Card Reports no additional complaints Resp Reports no additional complaints GI Reports no additional complaints Reports no additional complaints Physical exam (Primary Care) Vital Signs: Last Vital Signs Pulse 65 12/25/24 13:55 Resp 18 12/25/24 13:55 BP 128/72 12/25/24 13:55 Pulse Ox 97 12/25/24 13:55 Oxygen Delivery Method Room Air 12/25/24 13:55 BMI result Body Mass Index 35.9 Tobacco/Smoking Status: Tobacco use Status Tobacco use date assessed 12/25/24 12/25/24 14:00 Patient Tobacco Use Status Former Tobacco user (04/10/24 12/25/24 14:00 ) Tobacco use type Cigarette 12/25/24 14:00 e-Cigarette/Vaping Use Never Used 12/25/24 14:00 PHQ-9: PHQ-9 Score PHQ-9: Total score 1 12/25/24 14:00 Depression Screening Interpretation: Negative Thrive Assessment: Date of Thrive Assessment Date Thrive assessed 12/25/24 12/25/24 14:00 Currently or been in a relationship where the following occur: No concerns reported Const General: no acute distress HENMT Mouth: Normal oral and palatal mucosa present Neck Neck: Yes supple Resp Effort & Inspection: normal respiratory effort Auscultation: clear to auscultation bilaterally Cardio Rhythm: regular rhythm Heart sounds: S1 normal heart sound present and S2 normal heart sound present GI Inspection: Yes normal to inspection Palpation (GI): Soft to palpation Percussion: Yes normal to percussion Auscultation: normal bowel sounds Coding Level of Care Code Est Pt Level 5 (81825) Complex EM visit Add On G2211 Diagnoses Myocardial infarction I21.9 HTN (hypertension) I10 Hyperlipidemia E78.5 Cerebrovascular accident I63.9 CVA mechanism: unspecified Hyperglycemia R73.9 Morbid obesity E66.01 Additional Codes RAMBO-7 Assessment Billing - RAMBO-7 Assessment Tool: RAMBO-7 Assessment 52478 ([id number]) PHQ-9 - 39795 - PHQ-9 Billing: Yes ([id number]) Assessment & Plan Assessment & Plan (1) Myocardial infarction: Comment: after cocaine use Code(s): I21.9 - Acute myocardial infarction, unspecified Category: Medical Plan: Continue current medications (2) HTN (hypertension): Code(s): I10 - Essential (primary) hypertension Category: Medical Plan: Continue current medications (3) Hyperlipidemia: Code(s): E78.5 - Hyperlipidemia, unspecified Category: Medical Plan: Continue statin (4) Cerebrovascular accident: Comment: Left upper and lower extremity weakness, right facial droop 04/10/2024 Code(s): I63.9 - Cerebral infarction, unspecified Category: Medical Qualifiers: CVA mechanism: unspecified Qualified Code(s): I63.9 - Cerebral infarction, unspecified Plan: Continue current medications (5) Hyperglycemia: Code(s): R73.9 - Hyperglycemia, unspecified Category: Medical Plan: ADA diet increase physical activity weight loss discussed with the patient. He will return for fasting blood work including A1c and will follow-up in 4 months with a fasting labs before (6) Morbid obesity: Code(s): E66.01 - Morbid (severe) obesity due to excess calories Category: Medical Plan: Decreasing caloric intake increasing physical activity weight loss discussed with the patient zip bound 2.5 mg weekly will be started and side effects discussed with the patient. Orders: Orders Comprehensive [place]. Panel Fast 4 Months E78.5 - Hyperlipidemia, unspecified, I10 - Essential (primary) hypertension, I21.9 - Acute myocardial infarction, unspecified Complete Blood Count Auto Diff 4 Months E78.5 - Hyperlipidemia, unspecified, I10 - Essential (primary) hypertension, I21.9 - Acute myocardial infarction, unspecified Hemoglobin A1c 4 Months E78.5 - Hyperlipidemia, unspecified, I10 - Essential (primary) hypertension, I21.9 - Acute myocardial infarction, unspecified Lipid Panel 4 Months E78.5 - Hyperlipidemia, unspecified, I10 - Essential (primary) hypertension, I21.9 - Acute myocardial infarction, unspecified Microalbumin, Random (w Creat) 4 Months E78.5 - Hyperlipidemia, unspecified, I10 - Essential (primary) hypertension, I21.9 - Acute myocardial infarction, unspecified Medications: New erythromycin 0.5 inches ophthalmic (eye) BID 3.5 grams 0RF tirzepatide (weight loss) (Zepbound) for 4 weeks 2.5 mg (0.5 mL) subcut QWEEK 2 mL 4RF Changed From sertraline (Zoloft) 1/2 tabl qd for 1 week, then 1 tabl qd 50 mg PO DAILY 90 tabs 0RF To sertraline (Zoloft) 50 mg PO DAILY 90 tabs 3RF Refilled amlodipine 10 mg PO DAILY 90 tabs 3RF atorvastatin 40 mg PO DAILY 90 tabs 3RF buspirone 10 mg PO BID 180 tabs 3RF clopidogrel 75 mg PO DAILY 90 tabs 3RF triamterene-hydrochlorothiazid 37.5-25 mg 1 tab PO DAILY 90 tabs 3RF lisinopril 40 mg PO DAILY 90 tabs 3RF nebivolol 20 mg PO DAILY 90 tabs 3RF
== END 2024-12-25 14:32 | disposition home or self-care (01) ==
LOC: HO.HMCC 13:38
PROVIDERS: PCP Internal Medicine; Visit Provider Internal Medicine
DX: E66.01 Morbid (severe) obesity due to excess calories (principal); I25.2 Old myocardial infarction; Z68.35 Body mass index [BMI] 35.0-35.9, adult; I10 Essential (primary) hypertension; E78.5 Hyperlipidemia, unspecified; R73.9 Hyperglycemia, unspecified

== ENCOUNTER → 2024-12-25 13:37 | Outpatient (BNVA) | payer OTHER, SELFPAY | PROVIDERS: PCP Internal Medicine; Visit Provider Internal Medicine | DX: I21.9 Acute myocardial infarction, unspecified (principal); I10 Essential (primary) hypertension; E78.5 Hyperlipidemia, unspecified; R73.9 Hyperglycemia, unspecified; E66.01 Morbid (severe) obesity due to excess calories; Z68.35 Body mass index [BMI] 35.0-35.9, adult; Z86.73 Personal history of transient ischemic attack (TIA), and cerebral infarction without residual deficits; Z79.899 Other long term (current) drug therapy | CPT/HCPCS: 96127 ==

== ENCOUNTER 2025-01-08 18:37 | Emergency (ER) | payer OTHER, SELFPAY ==
--- NOTE | ~2025-01-08 | XR_ITS ---
CLINICAL HISTORY: sob 1 view chest x-ray Comparison: None Findings: The lungs are clear. Normal size heart. No acute fracture. IMPRESSION: 1. No acute findings. This document has been electronically signed by: Jovanny Brown MD on 01/08/2025 19:35:55
--- NOTE | ~2025-01-08 | CT_ITS ---
CLINICAL HISTORY: feeling off, hx of stroke right sided headache CT head without contrast Comparison: None Findings: No intra-axial mass, midline shift, hydrocephalus, or acute hemorrhage. There is right frontal encephalomalacia. No significant atrophy-like change or white matter disease. There are changes suggesting chronic right maxillary sinusitis with inspissated mucus and mucoperiosteal thickening. The visualized paranasal sinuses and mastoid air cells are otherwise normal. The orbits are unremarkable. No skull fracture. IMPRESSION: 1. No acute intracranial findings. This document has been electronically signed by: Jovanny Brown MD on 01/08/2025 19:18:25
[2025-01-08 18:41] VITALS: BP 164/68; PULSE 72; RESP 18; TEMP 36.4; O2SAT 98; BMI 39.1
--- NOTE | 2025-01-08 18:41 | ECG_ITS ---
Test Reason : stroke Blood Pressure : */* mmHG Vent. Rate : 59 BPM Atrial Rate : 59 BPM P-R Int : 152 ms QRS Dur : 96 ms QT Int : 438 ms P-R-T Axes : 46 29 168 degrees QTcB Int : [address] & T wave abnormality, consider lateral ischemia Abnormal ECG When compared with ECG of 10-Apr-2024 10:03, T wave inversion less evident in Lateral leads Referred By: Josh Talley Electronically Signed By: ZULAY BARRETT MD
--- NOTE | 2025-01-08 18:44 | ED.GENADULT ---
HPI - General Adult General Chief complaint: Headache Stated complaint: feels off; feels like having a stroke, tired Time Seen by Provider: 01/09/25 00:44 Source: patient Mode of arrival: ambulatory Limitations: no limitations History of Present Illness ED Provider: HPI narrative: Patient's history of bilateral ischemic stroke with multiple areas of arterial stenosis with previous use of cocaine has not used cocaine for last 2 years on Plavix and aspirin comes here as while having did not patient noticed that he is off a little bit with no dysarthria or focal weakness also complaining of headache symptoms began around 1700 patient's the increased stress after arriving to the ER patient is feeling much better CT scan of the done prior to my evaluation is negative for acute stroke patient is ambulatory in steady gait Related Data Previous Rx's ?Medication ?Instructions ?Recorded nicotine 21 mg/24 hr daily 21 mg transdermal DAILY #30 ea 04/22/24 transdermal patch aspirin 81 mg tablet,delayed 81 mg PO DAILY #90 tabs 07/03/24 release amlodipine 10 mg tablet 10 mg PO DAILY #90 tabs 12/25/24 atorvastatin 40 mg tablet 40 mg PO DAILY #90 tabs 12/25/24 buspirone 10 mg tablet 10 mg PO BID #180 tabs 12/25/24 clopidogrel 75 mg tablet 75 mg PO DAILY #90 tabs 12/25/24 erythromycin 5 mg/gram (0.5 %) eye 0.5 inch ophthalmic (eye) BID #3.5 12/25/24 ointment grams lisinopril 40 mg tablet 40 mg PO DAILY #90 tabs 12/25/24 nebivolol 20 mg tablet 20 mg PO DAILY #90 tabs 12/25/24 sertraline 50 mg tablet (Zoloft) 50 mg PO DAILY #90 tabs 12/25/24 tirzepatide (weight loss) 2.5 2.5 mg (0.5 mL) subcut QWEEK #2 mL 12/25/24 mg/0.5 mL subcutaneous pen injector (Zepbound) triamterene 37.5 1 tab PO DAILY #90 tabs 12/25/24 mg-hydrochlorothiazide 25 mg tablet Allergies Allergy/AdvReac Type Severity Reaction Status Date / Time citalopram AdvReac Unknown diarrhea Verified 01/08/25 18:43 Review of Systems Review of Systems: Yes all other systems are reviewed and are negative [facility] Past Medical History Medical History Hyperglycemia Alcohol use disorder Cocaine use disorder Myocardial infarction Annual physical exam Hyperlipidemia HTN (hypertension) Anxiety and depression Surgical History S/P cardiac cath History of meniscal tear Family History Family History Father HTN (hypertension) Stroke Mother Alcoholism Maternal Grandfather No problems noted. Maternal Grandmother No problems noted. Paternal Grandfather No problems noted. Paternal Grandmother Stroke Social History Social History Household Members: Family Housing: Apartment Do you presently have visiting nurse or other home services: No Alcohol intake: current Alcohol intake frequency: other Alcohol type: beer Patient Tobacco Use Status: Former Tobacco user (04/10/24) Tobacco use type: Cigarette Cigarettes Per Day: 10 Years Smoked: 20 e-Cigarette/Vaping Use: Never Used Advance Directives: No Advance Directives Information Provided: No Do you have a plan to hurt others: No Plan service: No Current occupational status: employed Cognitive needs: No Hearing needs: No Vision needs: Yes Physical Exam ED Vital Signs: Vital Signs - 24 hr 01/08/25 18:41 01/08/25 22:52 01/09/25 00:45 Temperature 97.6 F 97.7 F 97.4 F Pulse Rate 72 54 57 Respiratory Rate 18 18 Blood Pressure 164/68 H 147/71 H 153/76 H Pulse Oximetry 98 99 99 Oxygen Delivery Method Room Air Room Air Room Air BMI result Body Mass Index 39.1 Appearance: Alert. Oriented X3. No acute distress. Eyes: PERRLA, No Nystagmus ENT: Pharynx normal. Oral Mucosa moist Neck: Normal inspection. Neck supple. CVS: Normal heart rate and rhythm. Pulses normal. Respiratory: No respiratory distress. Equal air entry bilateral, no wheezing/rales/rhonchi Abdomen: Soft and nontender. Bowel sounds are present, no mass palpable, no CVA tenderness Skin: Skin warm and dry. Normal skin color. Normal skin turgor. Extremities: No lower extremity edema. No calf tenderness Neuro: Oriented X 3. No motor deficit. No sensory deficit.No cerebellar signs , cranial nerves II-XII intact NIH Stroke Scale Time: 00:57 Level of Consciousness: Alert Level of Consciousness Questions: Answers both questions correctly Level of Consciousness Commands: Performs both tasks correctly Best Gaze: Normal Visual: No visual loss Facial Palsy: Normal Motor Arm (Right): No drift Motor Arm (Left): No drift Motor Leg (Right): No drift Motor Leg (Left): No drift Limb Ataxia: Absent Sensory: Normal Best Language: No aphasia Dysarthia: Normal Extinction and Inattention: No abnormality Score: 0 Course Course Course Narrative: This is an RME done by AYANA Talley: Additional HPI, ROS, PE not included below will be deferred to primary provider. 54-year-old male history of obesity, anemia, dysphagia, history of AR, hypertension, anxiety, depression, hyperlipidemia presents with right-sided headache since this morning, he then started experiencing some shortness of breath which is what prompted him to come in today. He tells me he does not feel written and has a history of stroke and he is not sure if this is the same thing. NIH stroke scale 0 on arrival Appearance: Alert.? Oriented X3.? No acute cardiopulmonary distress distress.? Head: Normocephalic, atraumatic, no step-offs or deformities Neck: Normal inspection.? Neck supple.? CVS: Pulses normal.? Respiratory: No respiratory distress.? Abdomen: Soft and nontender.? Skin: ? Normal skin color. Extremities: 5/5 strength to bilateral upper and lower extremities Back: No midline tenderness, no C-spine tenderness, full range of motion, No CVA tenderness bilaterally Neuro: Oriented X 3.? No motor deficit.? No sensory deficit. Medical Decision Making Medical Decision Making [facility] Narrative: Patient's headache with multiple TIAs and strokes bilateral second-degree to multiple stenosis with prior history of cocaine use came here for fogginess in the brain without any focal deficits and headache CT scan of the head is negative for acute advised to continue aspirate and Plavix at this time there is no findings of CVA patient advised to follow up with PCP/neurologist Lab Data MDM Lab Attestation statement: I reviewed the patient's lab results. 01/08/25 19:17 01/08/25 19:17 Labs: Lab Results 01/08/25 01/08/25 Range/Units 19:17 23:30 WBC 8.5 (4.8-10.8) X10*3/uL RBC 4.23 L (4.60-5.80) X10*6/uL Hgb 12.7 L (14.0-18.0) g/dl Hct 35.6 L (42.0-52.0) % MCV 84.2 (80.0-98.0) fL MCH 30.0 (27.0-33.0) pg MCHC 35.7 (31.0-36.0) g/dl RDW 12.8 (11.0-16.0) % Plt Count 281 (160-400) X10*3/uL MPV 9.1 L (9.4-12.4) fL Immature Gran % (Auto) 0.2 (0.0-0.4) % Neut % (Auto) 51.6 (45-73) % Lymph % (Auto) 35.6 (20-40) % [place] % (Auto) 9.6 (2-11) % Eos % (Auto) 1.9 (0-4) % Baso % (Auto) 1.1 (0-2) % Lymph # (Auto) 3.0 (1.2-4.9) X10*3/uL [place] # (Auto) 0.8 (0.1-1.2) X10*3/uL Eos # (Auto) 0.2 (0.0-0.4) X10*3/uL Baso # (Auto) 0.1 (0.0-0.2) X10*3/uL Abs Immat Gran (auto) 0.02 (0.00-0.03) X10*3/uL Absolute Neuts (auto) 4.4 (2.0-8.3) x10*3/uL Absolute Nucleated RBC 0.000 (0.0-0.012) X10*3/uL Nucleated RBC % (auto) 0.0 (0.0-0.2) /100WBC PT 11.6 (10.9-12.4) SEC INR 1.0 (0.9-1.1) Sodium 139 (135-145) mmol/L Potassium 3.3 (3.3-5.1) mmol/L Chloride 106 (96-108) mmol/L Carbon Dioxide 27 (22-29) mmol/L Anion Gap 9 L (12-20) BUN 10 (9-16) mg/dL Creatinine 0.84 (0.5-1.4) mg/dL Estim Creat Clear Calc 120.7 Estimated GFR > 60 Random Glucose 111 (60-115) mg/dL Calcium 9.0 D (8.4-10.2) mg/dL Magnesium 1.9 (1.6-2.6) mg/dL Total Bilirubin 0.4 (0.0-1.0) mg/dL AST 22 (5-37) U/L ALT 25 (0-40) U/L Alkaline Phosphatase 79 (39-117) U/L Troponin I High Sens 4.5 (<3.5-35.0) ng/L B-Natriuretic Peptide < 10 (<100) pg/mL Total Protein 7.3 (6.5-8.0) g/dL Albumin 4.5 (3.5-5.0) g/dL Urine Color Yellow Urine Appearance Clear Urine pH 6.0 (5.0-9.0) Ur Specific [place] 1.015 (1.005-1.025) Urine Protein Negative (Neg-Trace) mg/dL Urine Glucose (UA) Negative (Negative) mg/dL Urine Ketones Negative (Negative) mg/dL Urine Blood Negative (Negative) Urine Nitrite Negative (Negative) Ur Leukocyte Esterase Negative (Negative) Independent Interpretation I performed an independent interpretation of an: CT Scan Radiology Impression Discussion of test interpretation with radiology: I have reviewed the radiologist's reading. Radiologist Impression: [place] [id number] CT Scan Report Signed Patient: Saman Browne MR#: [id number] : 1970 Acct:[id number] Age/Sex: 54 / M ADM Date: 01/08/25 Loc: .ED Attending Dr: Ordering Physician: Josh Talley Date of Service: 01/08/25 Procedure(s): CT head/brain wo IV con Accession Number(s): [id number] cc: Eleonora Hector MD; Josh Talley~ Report Number: [id number]: Total DLP = 677.00 mGy-cm CLINICAL HISTORY: feeling off, hx of stroke right sided headache CT head without contrast Comparison: None Findings: No intra-axial mass, midline shift, hydrocephalus, or acute hemorrhage. There is right frontal encephalomalacia. No significant atrophy-like change or white matter disease. There are changes suggesting chronic right maxillary sinusitis with inspissated mucus and mucoperiosteal thickening. The visualized paranasal sinuses and mastoid air cells are otherwise normal. The orbits are unremarkable. No skull fracture. IMPRESSION: 1. No acute intracranial findings. This document has been electronically signed by: Jovanny Brown MD on 01/08/2025 19:18:25 Discharge Plan Discharge Clinical Impression: Headache Patient Disposition: Home, Self-Care Instructions: General Headache (ED) Additional Instructions: Rest at home Continue take your medications Tylenol for headache Follow up with your PCP or report to ER if worse Prescriptions: No Action nicotine 21 mg/24 hr patch 24 hour 21 mg transdermal DAILY Qty: 30 5RF aspirin 81 mg tablet,delayed release (DR/EC) 81 mg PO DAILY Qty: 90 3RF erythromycin 5 mg/gram (0.5 %) ointment 0.5 inch ophthalmic (eye) BID Qty: 3.5 0RF amlodipine 10 mg tablet 10 mg PO DAILY Qty: 90 3RF atorvastatin 40 mg tablet 40 mg PO DAILY Qty: 90 3RF buspirone 10 mg tablet 10 mg PO BID Qty: 180 3RF clopidogrel 75 mg tablet 75 mg PO DAILY Qty: 90 3RF lisinopril 40 mg tablet 40 mg PO DAILY Qty: 90 3RF nebivolol 20 mg tablet 20 mg PO DAILY Qty: 90 3RF sertraline [Zoloft] 50 mg tablet 50 mg PO DAILY Qty: 90 3RF triamterene-hydrochlorothiazid 37.5-25 mg tablet 1 tab PO DAILY Qty: 90 3RF Zepbound 2.5 mg/0.5 mL pen injector 2.5 mg subcut QWEEK Qty: 2 4RF Rx Instructions: for 4 weeks Print Language: Filipino
[2025-01-08 19:21] LABS: MANUAL DIFF FLAG NO
[2025-01-08 19:23] LABS: Basophils Absolute Auto 0.1 X10*3/uL (0.0-0.2); Basophils Percent Auto 1.1 % (0-2); Eosinophils Absolute Auto 0.2 X10*3/uL (0.0-0.4); Eosinophils Percent Auto 1.9 % (0-4); Hematocrit 35.6 % (42.0-52.0); Hemoglobin 12.7 g/dl (14.0-18.0); Imm Gran Abs Auto 0.02 X10*3/uL (0.00-0.03); Imm Gran Pct Auto 0.2 % (0.0-0.4); Lymphocytes Percent Auto 35.6 % (20-40); Mean Corpuscular HGB Conc 35.7 g/dl (31.0-36.0); Mean Corpuscular Volume 84.2 fL (80.0-98.0); Mean Platelet Volume 9.1 fL (9.4-12.4); Monocytes Absolute Auto 0.8 X10*3/uL (0.1-1.2); Monocytes Percent Auto 9.6 % (2-11); Neutrophils Absolute Auto 4.4 x10*3/uL (2.0-8.3); Neutrophils Percent Auto 51.6 % (45-73); Platelet Count 281 X10*3/uL (160-400); Red Blood Count 4.23 X10*6/uL (4.60-5.80); Red Cell Distribution Width 12.8 % (11.0-16.0); White Blood Count 8.5 X10*3/uL (4.8-10.8)
[2025-01-08 19:37] LABS: Prothrombin Time 11.6 SEC (10.9-12.4)
[2025-01-08 19:44] LABS: Alanine Aminotransferase 25 U/L (0-40); Albumin Level 4.5 g/dL (3.5-5.0); Alkaline Phosphatase 79 U/L (39-117); Anion Gap 9 (12-20); Aspartate Amino Transferase 22 U/L (5-37); Bilirubin Total 0.4 mg/dL (0.0-1.0); Blood Urea Nitrogen 10 mg/dL (9-16); Carbon Dioxide 27 mmol/L (22-29); Chloride 106 mmol/L (96-108); Creatinine Clr Calc Pharmacy 120.7; Estimated Glomerular Filt Rate > 60; Glucose Random 111 mg/dL (60-115); Magnesium 1.9 mg/dL (1.6-2.6); Potassium 3.3 mmol/L (3.3-5.1); Sodium 139 mmol/L (135-145); Total Protein 7.3 g/dL (6.5-8.0)
[2025-01-08 19:48] LABS: B Type Natriuretic Peptide < 10 pg/mL (<100)
[2025-01-08 19:52] LABS: Troponin-I High Sensitivity 4.5 ng/L (<3.5-35.0)
[2025-01-08 22:52] VITALS: BP 147/71; PULSE 54; TEMP 36.5; O2SAT 99
--- NOTE | 2025-01-08 23:03 | PC.NURSE ---
Report given to KD Alcocer.
[2025-01-08 23:41] LABS: Appearance Urine Clear; Color Urine Yellow; Glucose Urine UA Negative (Negative); Leukocyte Esterase Urine Negative (Negative); Nitrite Urine Negative (Negative); Specific Gravity - Urine 1.015 (1.005-1.025); Urine Blood Negative (Negative); Urine Ketones Negative (Negative); Urine Protein Negative (Neg-Trace)
[2025-01-09 00:45] VITALS: BP 153/76; PULSE 57; RESP 18; TEMP 36.3; O2SAT 99
[2025-01-09] MEDS: Butalb/Acetamin/Caff 50/325/40 TABLET 1 TAB PO (01:00)
[2025-01-09 01:04] VITALS: BP 153/76; PULSE 57; RESP 18; TEMP 36.3; O2SAT 99
== END 2025-01-09 01:05 | disposition home or self-care (01) ==
PROVIDERS: Physician Assistant; Emergency Provider Internal Medicine; PCP Internal Medicine
DX: R51.9 Headache, unspecified (principal); R06.02 Shortness of breath; R29.700 NIHSS score 0; I10 Essential (primary) hypertension; E78.5 Hyperlipidemia, unspecified; I25.2 Old myocardial infarction; Z79.82 Long term (current) use of aspirin; Z79.02 Long term (current) use of antithrombotics/antiplatelets; Z79.899 Other long term (current) drug therapy; Z87.891 Personal history of nicotine dependence
CPT/HCPCS: 36415; 70450; 71045; 80053; 81003; 83735; 83880; 84484; 85025; 85610; 93005; 99284; 99285

== ENCOUNTER → 2025-01-08 18:41 | Outpatient (BNV) | payer OTHER, SELFPAY | PROVIDERS: PCP Internal Medicine; Visit Provider Specialist | DX: R51.9 Headache, unspecified (principal); R06.02 Shortness of breath | CPT/HCPCS: 70450; 71045 ==

== ENCOUNTER → 2025-01-08 18:41 | Outpatient (BNV) | payer OTHER, SELFPAY | PROVIDERS: Emergency Provider Internal Medicine; PCP Internal Medicine; Visit Provider Internal Medicine Cardiovascular Disease | DX: R00.1 Bradycardia, unspecified (principal) | CPT/HCPCS: 93010 ==

== ENCOUNTER 2025-04-25 06:34 | Outpatient (REF) | payer OTHER, SELFPAY ==
[2025-04-25 11:19] LABS: MANUAL DIFF FLAG NO
[2025-04-25 11:36] LABS: Hematocrit 38.4 % (42.0-52.0); Hemoglobin 12.8 g/dl (14.0-18.0); Imm Gran Abs Auto 0.02 X10*3/uL (0.00-0.03); Imm Gran Pct Auto 0.2 % (0.0-0.4); Lymphocytes Absolute Auto 2.8 X10*3/uL (1.2-4.9); Mean Corpuscular HGB Conc 33.3 g/dl (31.0-36.0); Mean Corpuscular Hemoglobin 29.5 pg (27.0-33.0); Mean Corpuscular Volume 88.5 fL (80.0-98.0); NRBC Abs Auto 0.000 X10*3/uL (0.0-0.012); NRBC Pct Auto 0.0 /100WBC (0.0-0.2); Platelet Count 294 X10*3/uL (160-400); Red Blood Count 4.34 X10*6/uL (4.60-5.80); White Blood Count 8.8 X10*3/uL (4.8-10.8)
[2025-04-25 11:49] LABS: Hemoglobin A1C 139.9427 umol/L; Total Hemoglobin (HGBA1C) 3403.6212 umol/L
[2025-04-25 11:58] LABS: Alanine Aminotransferase 25 U/L (0-40); Albumin Level 4.5 g/dL (3.5-5.0); Alkaline Phosphatase 74 U/L (39-117); Anion Gap 12 (12-20); Aspartate Amino Transferase 29 U/L (5-37); Blood Urea Nitrogen 16 mg/dL (9-16); Calcium 9.1 mg/dL (8.4-10.2); Carbon Dioxide 28 mmol/L (22-29); Chloride 103 mmol/L (96-108); Cholesterol 101 mg/dL (<200); Estimated Glomerular Filt Rate > 60; HDL Cholesterol 33 mg/dL (>40); Potassium 3.8 mmol/L (3.3-5.1); Sodium 139 mmol/L (135-145); Total Protein 7.1 g/dL (6.5-8.0); Triglycerides 73 mg/dL (<150)
[2025-04-25 12:00] LABS: Microalbum/Creatinine Ratio Ur 6.1 ug/mg cr (<30)
== END 2025-04-25 06:35 | disposition home or self-care (01) ==
LOC: HO.HMGCLDS 06:34
PROVIDERS: PCP Internal Medicine; Visit Provider Internal Medicine
DX: I21.9 Acute myocardial infarction, unspecified (principal); I10 Essential (primary) hypertension; E78.5 Hyperlipidemia, unspecified
CPT/HCPCS: 36415; 80053; 80061; 82043; 82570; 83036; 85025

== ENCOUNTER 2025-05-06 10:09 | Outpatient (AMB) | payer OTHER, SELFPAY ==
--- NOTE | 2025-05-06 10:40 | A.OFFPC_ITS ---
Vital Signs 05/06/25 10:41 Height 5 ft 7 in Weight 252 lb BMI 39.5 BP 120/70 Blood Pressure Location Lt brachial Position Sitting Respiration 18 Pulse 64 Pulse Source Pulse Oximeter Temp 98.1 F Temp Source Oral Pulse Oximetry (%) 96 Oxygen Delivery Method Room Air Intake Visit Reasons: Annual PE Intake Note: Pt is here today for PE. Allergies citalopram Adverse Reaction (Unknown, Verified 05/06/25 10:44) diarrhea Medication List - Last Reconciled 05/06/25 by Eleonora Hector MD amlodipine 10 mg PO DAILY aspirin 81 mg PO DAILY atorvastatin 40 mg PO DAILY buspirone 10 mg PO BID clopidogrel 75 mg PO DAILY erythromycin 0.5 inches ophthalmic (eye) BID lisinopril 40 mg PO DAILY nebivolol 20 mg PO DAILY nicotine 21 mg transdermal DAILY sertraline (Zoloft) 50 mg PO DAILY triamterene-hydrochlorothiazid 37.5-25 mg 1 tab PO DAILY Tobacco use date assessed: 05/06/25 Dental Screening Dental Screen Date: 05/06/25 Did you have a dental visit in the last 12 months?: Yes Did you have a dental problem in the last 6 months where you did not have access to dental care?: No Was dental information given to patient?: Patient has dentist HPI Annual PE HPI Details Patient presents for physical PFSH Medical History Hyperglycemia Alcohol use disorder Cocaine use disorder Myocardial infarction Annual physical exam Hyperlipidemia HTN (hypertension) Anxiety and depression Surgical History S/P cardiac cath History of meniscal tear Family History Father HTN (hypertension) Stroke Mother Alcoholism Maternal Grandfather No problems noted. Maternal Grandmother No problems noted. Paternal Grandfather No problems noted. Paternal Grandmother Stroke Social History Household Members: Family Housing: Apartment Do you presently have visiting nurse or other home services: No Alcohol intake: current Alcohol intake frequency: does not drink Alcohol type: beer Patient Tobacco Use Status: Former Tobacco user Tobacco use type: Cigarette Cigarettes Per Day: 10 Years Smoked: 20 e-Cigarette/Vaping Use: Never Used service: No Current occupational status: employed Cognitive needs: No Hearing needs: No Vision needs: Yes Questionnaire PHQ-9 Over the last 2 weeks, how often have you been bothered by any of the following problems? 1. Little interest or pleasure in doing things: not at all 2. Feeling down, depressed, or hopeless: not at all 3. Trouble falling or staying asleep, or sleeping too much: several days 4. Feeling tired or having little energy: several days 5. Poor appetite or overeating: several days 6. Feeling bad about yourself - or that you are a failure or have let yourself or your family down: several days 7. Trouble concentrating on things, such as reading the newspaper or watching television: not at all 8. Moving or speaking so slowly that other people could have noticed. Or the opposite - being so fidgety or restless that you have been moving around a lot m ore than usual: not at all 9. Thoughts that you would be better off or of hurting yourself in some way: not at all Total score: 4 Depression Screening Interpretation: Negative Depression Screening Done: Yes 22383 - PHQ-9 Billing: Yes Source: Developed by Drs. Pasha Denise, Oralia Edward, Fabio Ho and colleagues, with an educational obinna from [employer]. Thrive Questionnaire Date Thrive assessed: 05/06/25 I am a: Patient What is your living situation today?: I have a steady place to live Within the past 12 months, did the food you bought not last and you didn't have the money to get more?: Never true Within the past 12 months, did you worry whether your food would run out before you got money to buy more?: Never true Do you have trouble paying for medicines?: No Do you have trouble getting transportation to medical appointments?: No Do you have trouble paying your heating and electricity bill?: No Do you have trouble taking care of your child, family member or friend?: No Do you have trouble with day-to-day activities such as bathing, preparing meals, shopping, managing finances, etc.?: No Are you currently unemployed and looking for a job?: No Are you interested in more education?: Yes Please select the resources that you would like help with: None Currently or been in a relationship where the following occur: No concerns reported THRIVE Score: 0 AUDIT C Alcohol Use Questionnaire (AUDIT-C) 1. How often do you have a drink containing alcohol?: 2-4 times a month 2. How many drinks containing alcohol do you have on a typical day when you are drinking?: 1 or 2 3. How often do you have six or more drinks on one occasion?: Never Total Score: 2 RAMBO-7 AMB Questionnaire RAMBO-7 Date RAMBO - 7 assessed: 05/06/25 Feeling nervous, anxious, or on edge: 0 = Not at all Not being able to stop or control worryin = Not at all Worrying too much about different things: 0 = Not at all Trouble relaxin = Not at all Being so restless that it is hard to sit still: 0 = Not at all Becoming easily annoyed or irritable: 0 = Not at all Feeling afraid as if something awful might happen: 0 = Not at all Total RAMBO-7 score (0-4 normal; 5-9 mild; 10-14 moderate; 15-21 severe): 0 Source: Developed by Drs. Pasha Denise, Oralia Edward, Fabio Ho and colleagues, with an educational obinna from [employer]. RAMBO-7 Assessment Billing RAMBO-7 Assessment Tool: RAMBO-7 Assessment 73429 Review of Systems Const All systems reviewed & are unremarkable except as noted in HPI and below Eyes Reports no additional complaints ENT Reports no additional complaints Card Reports no additional complaints Resp Reports no additional complaints GI Reports no additional complaints Reports no additional complaints Physical exam (Primary Care) Vital Signs: Last Vital Signs Temp 98.1 F 05/06/25 10:41 Pulse 64 05/06/25 10:41 Resp 18 05/06/25 10:41 BP 120/70 05/06/25 10:41 Pulse Ox 96 05/06/25 10:41 Oxygen Delivery Method Room Air 05/06/25 10:41 BMI result Body Mass Index 39.5 Tobacco/Smoking Status: Tobacco use Status Tobacco use date assessed 05/06/25 05/06/25 10:48 Patient Tobacco Use Status Former Tobacco user 05/06/25 10:41 Tobacco use type Cigarette 05/06/25 10:41 e-Cigarette/Vaping Use Never Used 05/06/25 10:41 PHQ-9: PHQ-9 Score PHQ-9: Total score 4 05/06/25 10:48 Depression Screening Interpretation: Negative Thrive Assessment: Date of Thrive Assessment Date Thrive assessed 05/06/25 05/06/25 10:48 Currently or been in a relationship where the following occur: No concerns reported Const General: no acute distress HENMT Head: Yes normal to inspection Ears: hearing grossly normal bilaterally Face and sinus: Yes normal facial exam Mouth: Normal oral and palatal mucosa present Throat: Yes posterior oropharynx normal Eyes General: appearance normal, both eyes and all related structures Neck Neck: Yes no lymphadenopathy and Yes supple Resp Effort & Inspection: normal respiratory effort Auscultation: clear to auscultation bilaterally Cardio Rhythm: regular rhythm Heart sounds: S1 normal heart sound present and S2 normal heart sound present GI Inspection: Yes normal to inspection Palpation (GI): Soft to palpation Percussion: Yes normal to percussion Auscultation: normal bowel sounds Coding Level of Care Code Est Pt Prev Care 40-64y(43443) Diagnoses Anxiety and depression F41.9; F32.9 HTN (hypertension) I10 Hyperglycemia R73.9 Myocardial infarction I21.9 Annual physical exam Z00.00 Additional Codes RAMBO-7 Assessment Billing - RAMBO-7 Assessment Tool: RAMBO-7 Assessment 40208 ([id number]) PHQ-9 - 28983 - PHQ-9 Billing: Yes ([id number]) Assessment & Plan Assessment & Plan (1) Anxiety and depression: Code(s): F41.9 - Anxiety disorder, unspecified; F32.9 - Major depressive disorder, single episode, unspecified Category: Medical Plan: Continue current medications (2) HTN (hypertension): Code(s): I10 - Essential (primary) hypertension Category: Medical Plan: Continue current medications (3) Hyperglycemia: Code(s): R73.9 - Hyperglycemia, unspecified Category: Medical Plan: A1c is 5.9, ADA diet increase exercise weight loss discussed with the pt (4) Myocardial infarction: Comment: after cocaine use Code(s): I21.9 - Acute myocardial infarction, unspecified Category: Medical Plan: Continue high dose of statin aspirin and beta lyndsey (5) Annual physical exam: Code(s): Z00.00 - Encounter for general adult medical examination without abnormal findings Category: Medical Plan: Referred to GI for colonoscopy, well-balanced diet regular exercise weight loss discussed with the patient follow-up in 4 months with a fasting labs before Orders: Orders CA echo transthoracic complete Today I21.9 - Acute myocardial infarction, unspecified Hemoglobin A1c 4 Months E78.5 - Hyperlipidemia, unspecified, F32.9 - Major depressive disorder, single episode, unspecified, F41.9 - Anxiety disorder, unspecified, I10 - Essential (primary) hypertension, R73.9 - Hyperglycemia, unspecified Comprehensive [place]. Panel Fast 4 Months E78.5 - Hyperlipidemia, unspecified, F32.9 - Major depressive disorder, single episode, unspecified, F41.9 - Anxiety disorder, unspecified, I10 - Essential (primary) hypertension, R73.9 - Hyperglycemia, unspecified Complete Blood Count Auto Diff 4 Months E78.5 - Hyperlipidemia, unspecified, F32.9 - Major depressive disorder, single episode, unspecified, F41.9 - Anxiety disorder, unspecified, I10 - Essential (primary) hypertension, R73.9 - Hyperglycemia, unspecified Lipid Panel 4 Months E78.5 - Hyperlipidemia, unspecified, F32.9 - Major depr essive disorder, single episode, unspecified, F41.9 - Anxiety disorder, unspecified, I10 - Essential (primary) hypertension, R73.9 - Hyperglycemia, unspecified PSA,Total (Free>4and<10) 4 Months E78.5 - Hyperlipidemia, unspecified, F32.9 - Major depressive disorder, single episode, unspecified, F41.9 - Anxiety disorder, unspecified, I10 - Essential (primary) hypertension, R73.9 - Hyperglycemia, unspecified Microalbumin, Random (w Creat) 4 Months E78.5 - Hyperlipidemia, unspecified, F32.9 - Major depressive disorder, single episode, unspecified, F41.9 - Anxiety disorder, unspecified, I10 - Essential (primary) hypertension, R73.9 - Hyperglycemia, unspecified UA w Microscopic 4 Months E78.5 - Hyperlipidemia, unspecified, F32.9 - Major depressive disorder, single episode, unspecified, F41.9 - Anxiety disorder, unspecified, I10 - Essential (primary) hypertension, R73.9 - Hyperglycemia, unspecified Referrals Gastroenterology Referral Z00.00 - Encounter for general adult medical examination without abnormal findings
[2025-05-06 10:41] VITALS: BP 120/70; PULSE 64; RESP 18; TEMP 36.7; O2SAT 96; BMI 39.5
== END 2025-05-06 11:09 | disposition home or self-care (01) ==
LOC: HO.HMCC 10:10
PROVIDERS: PCP Internal Medicine; Visit Provider Internal Medicine
DX: Z00.00 Encounter for general adult medical examination without abnormal findings (principal); I25.2 Old myocardial infarction; F32.9 Major depressive disorder, single episode, unspecified; F41.9 Anxiety disorder, unspecified; I10 Essential (primary) hypertension; R73.9 Hyperglycemia, unspecified

== ENCOUNTER → 2025-05-06 10:09 | Outpatient (BNVA) | payer OTHER, SELFPAY | PROVIDERS: PCP Internal Medicine; Visit Provider Internal Medicine | DX: Z00.00 Encounter for general adult medical examination without abnormal findings (principal); F41.9 Anxiety disorder, unspecified; F32.9 Major depressive disorder, single episode, unspecified; I10 Essential (primary) hypertension; I21.9 Acute myocardial infarction, unspecified; R73.9 Hyperglycemia, unspecified | CPT/HCPCS: 96127 ==

== ENCOUNTER → 2025-06-19 07:43 | Outpatient (REF) | payer OTHER, SELFPAY ==
--- NOTE | 2025-06-19 07:56 | CA_ITS ---
Transthoracic Echocardiogram Patient (Last, First, Middle): Saman Browne, Gender: M Date of : 1970 Age: 54 Procedure Date: 06/19/2025 Procedure Type: Transthoracic Echocardiogram Location: OP Height: 170.18 cm Weight: 114.31 kg BSA: 2.23 m2 Heart Rate: 58 bpm BP: 120 / 70 mmHg Framing Mill Operator: SB Referring MD: Eleonora Hector MD Structural Steel Worker: Gordo Baltazar MD Symptoms: I21.9 - Acute myocardial infarction, unspecified Study Quality: Adequate ECG Rhythm: Bradycardia Conclusions: - 1. Hyperdynamic LV ejection fraction of greater than 70% 2. Calcific mitral and aortic valve changes noted with normal cardiac valvular Dopplers 3. Upper limits of normal ascending aortic size 4. No gross pericardial effusion Findings Procedure Information Contrast agent, definity, is being given per protocol without apparent complications. Left Ventricle Normal left ventricular cavity size. There is normal left ventricular wall thickness. The left ventricular systolic function is hyperdynamic. The visually estimated ejection fraction is >70%. Spectral Doppler is indicative of a normal filling pattern. There is mild septal asymmetric hypertrophy. Right Ventricle Mildly increased right ventricular cavity size. There is normal right ventricular systolic function. Atria The left atrium is likely dilated. There is no evidence of interatrial shunt. The right atrium is normal in size. Aortic Valve There is no aortic valve stenosis. There is no aortic valve regurgitation. Mitral Valve There is mild anterior and posterior mitral leaflet thickening. There is mild mitral annular calcification. There is trace mitral valve regurgitation. There is no mitral valve stenosis. Tricuspid Valve Normal tricuspid valve structure. Tricuspid regurgitation envelope is inadequate for calculation of right ventricular systolic pressure. Normal right atrial pressure. Great Vessels The pulmonary artery was not well visualized. Small plaque is seen in the sino tubular ridge. Venous The inferior vena cava is normal in size and collapses greater than 50% with inspiration. Pericardium/Pleural There is no evidence of pericardial effusion. Prior Study Comparison Changes noted compared to prior study dated: 04/10/2024. LV ejection fraction has normalized Measurements 2D Linear Measurements IVSd: 1.21 0.6-0.9/0.6-1.0 cm LVIDd: 5.19 3.9-5.3/4.2-5.9 cm LVIDd Index: 2.33 2.4-3.2/2.2-3.1 cm/m2 LVIDs: 3.34 2.0-3.6 cm LVPWd: 0.68 0.7-1.1 cm LA Diam: 4.00 2.7-3.8/3.0-4.0 cm LAIDs Index: 1.79 1.5-2.3 cm/m2 LV Mass: 224.01 67-162/88-224 g LV Mass Index: 100.45 43-95/49-115 g/m2 LVOT Diam: 2.30 3.0+(-)1.3 cm 2D Systolic Function EF 4C: 72.90 >55% EF 2C: 68.80 >55% EF BiP: 71.60 >55% Mitral Valve MV Pk E: 0.80 MV PK A: 0.65 MV Decel Time: 288.00 E/A: 1.20 E'Lateral: 8.38 E'Medial: 7.72 E/E' Med: 10.30 E/E' Lat: 9.50 PHT: 84.00 MVA PHT: 2.62 Decel Dent: 2.77 Aortic Valve AoV Pk Yamil: 1.53 AoV Pk Grad: 9.00 AV: 3.32 LVOT LVOT Pk Yamil: 1.14 LVOT Mn Yamil: 0.87 LVOT VTI: 0.26 LVOT Pk Grad: 5.00 LVOT Mn Grad: 3.00 LVOT Diam: 2.30 LVOT Area: 4.15 Diastolic Function MV Pk E: 0.80 MV Pk A: 0.65 E/A: 1.20 E'Medial: 7.72 E/E' Med: 10.30 E' Laterial: 8.38 E/E' Lat: 9.50 Right Ventricle TAPSE (mm): 27.70 TVS' Yamil: 13.60 Tricuspid Valve RA Press: 3.00 Great Vessels Aorta Sinus of Valsalva: 3.40 2.0-3.5 cm Ao Asc: 3.50 2.1-3.4 cm Ao Arch: 2.90 Pulmonary Veins Pulm Vein S/D 1.00 Pulmonary Valve PV Pk Yamil: 0.85 Peak PV Grad: 3.00 Updated in Other Vendor System with Status of Final Gordo Baltazar MD electronically signed on 06/19/2025 12:58:46 PM with status of Final
== END ==
LOC: HO.CARD 07:43
PROVIDERS: PCP Internal Medicine; Visit Provider Internal Medicine
DX: I21.9 Acute myocardial infarction, unspecified (principal)
CPT/HCPCS: 93306; Q9957

== ENCOUNTER → 2025-06-19 07:56 | Outpatient (BNV) | payer OTHER, SELFPAY | PROVIDERS: PCP Internal Medicine; Visit Provider Internal Medicine Cardiovascular Disease | DX: I34.81 Nonrheumatic mitral (valve) annulus calcification (principal); I35.8 Other nonrheumatic aortic valve disorders; I51.89 Other ill-defined heart diseases | CPT/HCPCS: 93306 ==

== ENCOUNTER 2025-07-10 10:49 | Outpatient (AMB) | payer OTHER, SELFPAY ==
[2025-07-10 11:00] VITALS: BP 126/74; PULSE 71; RESP 18; TEMP 36.8; O2SAT 98; BMI 38.1
--- NOTE | 2025-07-10 11:00 | A.OFFPC_ITS ---
Vital Signs 07/10/25 11:00 Height 5 ft 7 in Weight 243 lb BMI 38.1 BP 126/74 Blood Pressure Location Lt brachial Position Sitting Respiration 18 Pulse 71 Pulse Source Pulse Oximeter Temp 98.3 F Temp Source Oral Pulse Oximetry (%) 98 Oxygen Delivery Method Room Air Intake Visit Reasons: Hospital follow up Intake Note: Pt is here today for Hospital follow up visit. Allergies lisinopril Allergy (Severe, Verified 07/10/25 11:19) Anaphylaxis citalopram Adverse Reaction (Unknown, Verified 05/06/25 10:44) diarrhea Medication List - Last Reconciled 07/10/25 by Eleonora Hector MD amlodipine 10 mg PO DAILY aspirin 81 mg PO DAILY atorvastatin 40 mg PO DAILY buspirone 10 mg PO BID clopidogrel 75 mg PO DAILY erythromycin 0.5 inches ophthalmic (eye) BID nebivolol 20 mg PO DAILY nicotine 21 mg transdermal DAILY sertraline (Zoloft) 50 mg PO DAILY triamterene-hydrochlorothiazid 37.5-25 mg 1 tab PO DAILY Tobacco use date assessed: 07/10/25 Dental Screening Dental Screen Date: 05/06/25 [facility] Hospital follow up HPI Details Pt presents for f/u [facility] hospitalization for angioedema most likely secondary to Lisinoprill requiring intubation( per patient). There are no records from [facility] available. Patient has been doing well since the discharge. HTN is controlled on current medications. [facility] Medical History Hyperglycemia Alcohol use disorder Cocaine use disorder Myocardial infarction Annual physical exam Hyperlipidemia HTN (hypertension) Anxiety and depression Surgical History S/P cardiac cath History of meniscal tear Family History Father HTN (hypertension) Stroke Mother Alcoholism Maternal Grandfather No problems noted. Maternal Grandmother No problems noted. Paternal Grandfather No problems noted. Paternal Grandmother Stroke Social History Household Members: Family Housing: Apartment Do you presently have visiting nurse or other home services: No Alcohol intake: current Alcohol intake frequency: does not drink Alcohol type: beer Patient Tobacco Use Status: Former Tobacco user Tobacco use type: Cigarette Cigarettes Per Day: 10 Years Smoked: 20 Packs per year/per ci.00 e-Cigarette/Vaping Use: Never Used service: No Current occupational status: employed Cognitive needs: No Hearing needs: No Vision needs: Yes Questionnaire Thrive Questionnaire Date Thrive assessed: 12/22/24 I am a: Patient What is your living situation today?: I have a steady place to live Within the past 12 months, did the food you bought not last and you didn't have the money to get more?: Never true Within the past 12 months, did you worry whether your food would run out before you got money to buy more?: Never true Do you have trouble paying for medicines?: No Do you have trouble getting transportation to medical appointments?: No Do you have trouble paying your heating and electricity bill?: No Do you have trouble taking care of your child, family member or friend?: No Do you have trouble with day-to-day activities such as bathing, preparing meals, shopping, managing finances, etc.?: No Are you currently unemployed and looking for a job?: No Are you interested in more education?: Yes Please select the resources that you would like help with: None Currently or been in a relationship where the following occur: No concerns reported THRIVE Score: 0 RAMBO-7 AMB Questionnaire RAMBO-7 Date RAMBO - 7 assessed: 05/06/25 Source: Developed by Drs. Pasha Denise, Oralia Edward, Fabio Ho and colleagues, with an educational obinna from [employer]. Review of Systems Const All systems reviewed & are unremarkable except as noted in HPI and below Eyes Reports no additional complaints ENT Reports no additional complaints Card Reports no additional complaints Resp Reports no additional complaints GI Reports no additional complaints Reports no additional complaints Physical exam (Primary Care) Vital Signs: Last Vital Signs Temp 98.3 F 07/10/25 11:00 Pulse 71 07/10/25 11:00 Resp 18 07/10/25 11:00 BP 126/74 07/10/25 11:00 Pulse Ox 98 07/10/25 11:00 Oxygen Delivery Method Room Air 07/10/25 11:00 BMI result Body Mass Index 38.1 Tobacco/Smoking Status: Tobacco use Status Tobacco use date assessed 07/10/25 07/10/25 11:21 Patient Tobacco Use Status Former Tobacco user 07/10/25 11:01 Tobacco use type Cigarette 07/10/25 11:01 e-Cigarette/Vaping Use Never Used 07/10/25 11:01 Thrive Assessment: Date of Thrive Assessment Date Thrive assessed 12/22/24 07/10/25 11:01 Currently or been in a relationship where the following occur: No concerns reported Const General: no acute distress HENMT Head: Yes normal to inspection Face and sinus: Yes normal facial exam Eyes General: appearance normal, both eyes and all related structures Resp Effort & Inspection: normal respiratory effort Auscultation: clear to auscultation bilaterally Cardio Rhythm: regular rhythm Heart sounds: S1 normal heart sound present and S2 normal heart sound present GI Inspection: Yes normal to inspection Palpation (GI): Soft to palpation Percussion: Yes normal to percussion Auscultation: normal bowel sounds Coding Level of Care Code Est Pt Level 4 (55686) Diagnoses HTN (hypertension) I10 Hyperlipidemia E78.5 Morbid obesity E66.01 Assessment & Plan Assessment & Plan (1) HTN (hypertension): Code(s): I10 - Essential (primary) hypertension Category: Medical Plan: Continue current medications (2) Hyperlipidemia: Code(s): E78.5 - Hyperlipidemia, unspecified Category: Medical Plan: Continue statin (3) Morbid obesity: Code(s): E66.01 - Morbid (severe) obesity due to excess calories Category: Medical Plan: Decreasing caloric intake increasing physical activity weight loss discussed with the patient
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
== END 2025-07-10 16:49 | disposition home or self-care (01) ==
LOC: HO.HMCC 10:50
PROVIDERS: PCP Internal Medicine; Visit Provider Internal Medicine
DX: I10 Essential (primary) hypertension (principal); E78.5 Hyperlipidemia, unspecified; E66.01 Morbid (severe) obesity due to excess calories; Z68.38 Body mass index [BMI] 38.0-38.9, adult

== ENCOUNTER 2025-09-07 12:17 | Outpatient (AMB) | payer OTHER, SELFPAY ==
[2025-09-07 13:13] VITALS: BP 136/82; PULSE 57; RESP 17; TEMP 36.6; O2SAT 98; BMI 39.0
--- NOTE | 2025-09-07 13:13 | MHC.PC.OV ---
Vital Signs 09/07/25 13:13 Height 5 ft 7 in Weight 249 lb BMI 39.0 BP 136/82 Blood Pressure Location Rt brachial Position Sitting Respiration 17 Pulse 57 Pulse Source Pulse Oximeter Temp 97.8 F Temp Source Oral Pulse Oximetry (%) 98 Oxygen Delivery Method Room Air Intake Visit Reasons: 4 months f/up Intake Note: Pt is here today for 4 months follow up visit. Allergies lisinopril Allergy (Severe, Verified 09/07/25 13:23) Anaphylaxis citalopram Adverse Reaction (Unknown, Verified 09/07/25 13:23) diarrhea Medication List - Last Reconciled 09/07/25 by Eleonora Hector MD amlodipine 10 mg PO DAILY aspirin 81 mg PO DAILY atorvastatin 40 mg PO DAILY buspirone 10 mg PO BID clopidogrel 75 mg PO DAILY erythromycin 0.5 inches ophthalmic (eye) BID nebivolol 20 mg PO DAILY nicotine 21 mg transdermal DAILY sertraline (Zoloft) 50 mg PO DAILY triamterene-hydrochlorothiazid 37.5-25 mg 1 tab PO DAILY Tobacco use date assessed: 09/07/25 Dental Screening Dental Screen Date: 05/06/25 HPI 4 months f/up HPI Details Patient presents for the follow-up of hypertension hyperlipidemia chronic anxiety and depression, stable on current medications [facility] Medical History (Updated 09/07/25 @ 19:17 by Eleonora Hector MD) Cerebrovascular accident Hyperglycemia Alcohol use disorder Cocaine use disorder Myocardial infarction Annual physical exam Hyperlipidemia HTN (hypertension) Anxiety and depression Surgical History S/P cardiac cath History of meniscal tear Family History Father HTN (hypertension) Stroke Mother Alcoholism Maternal Grandfather No problems noted. Maternal Grandmother No problems noted. Paternal Grandfather No problems noted. Paternal Grandmother Stroke Social History Household Members: Family Housing: Apartment Do you presently have visiting nurse or other home services: No Alcohol intake: current Alcohol intake frequency: does not drink Alcohol type: beer Patient Tobacco Use Status: Former Tobacco user Tobacco use type: Cigarette Cigarettes Per Day: 10 Years Smoked: 20 e-Cigarette/Vaping Use: Never Used service: No Current occupational status: employed Cognitive needs: No Hearing needs: No Vision needs: Yes Questionnaire Thrive Questionnaire Date Thrive assessed: 12/22/24 I am a: Patient What is your living situation today?: I have a steady place to live Within the past 12 months, did the food you bought not last and you didn't have the money to get more?: Never true Within the past 12 months, did you worry whether your food would run out before you got money to buy more?: Never true Do you have trouble paying for medicines?: No Do you have trouble getting transportation to medical appointments?: No Do you have trouble paying your heating and electricity bill?: No Do you have trouble taking care of your child, family member or friend?: No Do you have trouble with day-to-day activities such as bathing, preparing meals, shopping, managing finances, etc.?: No Are you currently unemployed and looking for a job?: No Are you interested in more education?: Yes Please select the resources that you would like help with: None Currently or been in a relationship where the following occur: No concerns reported THRIVE Score: 0 RAMBO-7 AMB Questionnaire RAMBO-7 Date RAMBO - 7 assessed: 05/06/25 Source: Developed by Drs. Pasha Denise, Oralia Edward, Fabio Ho and colleagues, with an educational obinna from [employer]. Review of Systems Const All systems reviewed & are unremarkable except as noted in HPI and below Eyes Reports no additional complaints ENT Reports no additional complaints Card Reports no additional complaints Resp Reports no additional complaints GI Reports no additional complaints Reports no additional complaints Physical exam (Primary Care) Vital Signs: Last Vital Signs Temp 97.8 F 09/07/25 13:13 Pulse 57 09/07/25 13:13 Resp 17 09/07/25 13:13 BP 136/82 09/07/25 13:13 Pulse Ox 98 09/07/25 13:13 Oxygen Delivery Method Room Air 09/07/25 13:13 BMI result Body Mass Index 39.0 Tobacco/Smoking Status: Tobacco use Status Tobacco use date assessed 09/07/25 09/07/25 13:30 Patient Tobacco Use Status Former Tobacco user 09/07/25 13:13 Tobacco use type Cigarette 09/07/25 13:13 e-Cigarette/Vaping Use Never Used 09/07/25 13:13 Thrive Assessment: Date of Thrive Assessment Date Thrive assessed 12/22/24 09/07/25 13:13 Currently or been in a relationship where the following occur: No concerns reported Const General: no acute distress HENMT Head: Yes normal to inspection Face and sinus: Yes normal facial exam Eyes General: appearance normal, both eyes and all related structures Neck Neck: Yes supple Resp Effort & Inspection: normal respiratory effort Auscultation: clear to auscultation bilaterally Cardio Rhythm: regular rhythm Heart sounds: S1 normal heart sound present and S2 normal heart sound present GI Inspection: Yes normal to inspection Palpation (GI): Soft to palpation Percussion: Yes normal to percussion Auscultation: normal bowel sounds Coding Level of Care Code Est Pt Level 4 (79099) Diagnoses HTN (hypertension) I10 Hyperlipidemia E78.5 Hyperglycemia R73.9 Cerebrovascular accident I63.9 CVA mechanism: unspecified Assessment & Plan Assessment & Plan (1) HTN (hypertension): Code(s): I10 - Essential (primary) hypertension Category: Medical Plan: Continue current medications (2) Hyperlipidemia: Code(s): E78.5 - Hyperlipidemia, unspecified Category: Medical Plan: Continue statin (3) Hyperglycemia: Code(s): R73.9 - Hyperglycemia, unspecified Category: Medical Plan: A1c was 5.9 in April, ADA diet increase exercise weight loss discussed with the patient he will return for fasting blood work, follow-up in 3 months with a fasting labs before (4) Cerebrovascular accident: Comment: Left upper and lower extremity weakness, right facial droop 04/10/2024 Code(s): I63.9 - Cerebral infarction, unspecified Category: Medical Qualifiers: CVA mechanism: unspecified Qualified Code(s): I63.9 - Cerebral infarction, unspecified Plan: On dual antiplatelet therapy with aspirin and clopidogrel, clopidogrel can be discontinued 7 days before colonoscopy and restarted after colonoscopy, Orders: Orders Comprehensive [place]. Panel Fast 3 Months E78.5 - Hyperlipidemia, unspecified, I10 - Essential (primary) hypertension, R73.9 - Hyperglycemia, unspecified Complete Blood Count Auto Diff 3 Months E78.5 - Hyperlipidemia, unspecified, I10 - Essential (primary) hypertension, R73.9 - Hyperglycemia, unspecified Lipid Panel 3 Months E78.5 - Hyperlipidemia, unspecified, I10 - Essential (primary) hypertension, R73.9 - Hyperglycemia, unspecified TSH reflex Free T4 3 Months E78.5 - Hyperlipidemia, unspecified, I10 - Essential (primary) hypertension, R73.9 - Hyperglycemia, unspecified Hemoglobin A1c 3 Months E78.5 - Hyperlipidemia, unspecified, I10 - Essential (primary) hypertension, R73.9 - Hyperglycemia, unspecified UA w Microscopic 3 Months E78.5 - Hyperlipidemia, unspecified, I10 - Essential (primary) hypertension, R73.9 - Hyperglycemia, unspecified Microalbumin, Random (w Creat) 3 Months E78.5 - Hyperlipidemia, unspecified, I10 - Essential (primary) hypertension, R73.9 - Hyperglycemia, unspecified
--- OUTSIDE RECORDS SUMMARY | 2025-09-07 16:17 | XMS_ITS | Clinical Summary ---
Author Organization [facility] Address [address] [place] [address] Phone Care Team Providers Care Price Analyst Name Role Phone Kallie Sol MD Primary [...] time each day. 30 each 07/02/2025 Active metoprolol tartrate (LOPRESSOR) 100 mg tablet [...] - 07/02/2025 3:20 PM EDT Hospital Encounter [facility] ICU [address] [place] [id number] Dinesh Birmingham MD Bonacum, Julia T, MD [...] Safety Answer Date Record ed Physical Abuse Unrecognized value 06/30/2025 Verbal Abuse Unrecognized value 06/30/2025 Sex and Gender Information Value Date [...] Health Maintenance Due Date Last Done Comments Colorectal Cancer Screening: Colonoscopy 1970 Hepatitis A Vaccines (1 of 2 - [...] 8, 07/18/2011 Cholesterol Screening (Lipid Panel) 06/30/2025 HIV Screening 06/30/2025 Hepatitis C Screening [...] of2 resultswithin the time period is included. [facility] Signature Phosphorus 3.4 2.5 - 4.5 mg/dL LAB CHEMISTRY METHOD 07/02/2025 5:13 AM EDT [facility] Blood Venous blood specimen / Unknown Venipuncture / Unknown 07/02/2025 4:33 AM EDT 07/02/2025 4:48 AM EDT us Glenna Mckinley MD LAB BLOOD ORDERABLES Final Re sult Performing Organization Address City/[facility]/ZIP Co de Phone Number [facility] [address] [place] [address], [place] [phone] * Magnesium (07/02/2025 4:33 AM EDT) Only the most recent of3 resultswithin the time period is included. Magnesium 2.5 1.9 - 2.6 mg/dL LAB CHEMISTRY METHOD 07/02/2025 5:[address] [facility] Blood Venous blood specimen / Unknown Venipuncture / Unknown 07/02/2025 4:33 AM EDT 07/02/2025 4:48 AM EDT Glenna Mckinley MD LAB BLOOD ORDERABLES Final Re sult Performing Organization Address [facility] Co de Phone Number [facility] [address] [place] [address], [place] [phone] * (ABNORMAL) Calcium, ionized (07/02/2025 4:33 AM [...] ORDERABLES Final Re sult Performing Organization Address City/[facility]/ZIP Co de Phone Number [facility] [address] [place] [address], [place] [phone] * (ABNORMAL) Basic metabolic panel (07/02/2025 4:33 AM EDT) Only the most recent of3 resultswithin the time period is included. Sodium 143 133 - 145 mmol/L LAB CHEMISTRY METHOD 07/02/2025 5:13 AM [facility] Potassium 3.9 3.5 - 5.5 mmol/L LAB CHEMISTRY METHOD 07/02/2025 5:13 AM [facility] Chloride 106 96 - 110 mmol/L LAB CHEMISTRY METHOD 07/02/2025 5:13 AM [facility] CO2 30 21 - 32 mmol/L LAB CHEMISTRY METHOD 07/02/2025 5:13 AM [facility] Anion Gap 7 3 - 11 LAB CHEMISTRY METHOD 07/02/2025 5:13 AM [facility] Glucose 99 70 - 100 mg/dL LAB CHEMISTRY METHOD 07/02/2025 5:13 AM [facility] BUN 19 5 - 25 mg/dL LAB CHEMISTRY METHOD 07/02/2025 5:13 AM [facility] Creatinine 0.65(L) 0.70 - 1.30 mg/dL LAB CHEMISTRY METHOD 07/02/2025 5:13 AM [facility] eGFR 112 >=60 mL/min/1. 73m2 LAB CHEMISTRY METHOD 07/02/2025 5:13 AM [facility] Comment:Calculation based on the Chronic Kidney Disease Epidemiology Collaboration (CKD-EPI) equation refit without adjustment for race. BUN/Creatinine Ratio 29.2 LAB CHEMISTRY METHOD 07/02/2025 5:13 AM [facility] Calcium 8.9 8.5 - 10.5 mg/dL LAB CHEMISTRY METHOD 07/02/2025 5:13 AM [facility] Blood Venous blood specimen / Unknown Venipuncture / Unknown 07/02/2025 4:33 AM EDT 07/02/2025 4:48 AM EDT us Glenna Mckinley MD LAB BLOOD ORDERABLES Final Re sult [facility] [address] [place] [address], [place] [phone] * (ABNORMAL) CBC auto differential (07/02/2025 4:32 [...] [place] LAB HEMETOLOGY METHOD 07/02/2025 4:58 AM [facility] NRBC 0.0 <1.0 % LAB HEMETOLOGY METHOD 07/02/2025 4:58 AM [facility] NRBC Absolute 0.00 <0.10 K/mcL LAB HEMETOLOGY METHOD 07/02/2025 4:58 AM [facility] Neutrophils Relative 83.2 % LAB HEMETOLOGY METHOD 07/02/2025 4:58 AM [facility] Lymphocytes Relative 10.7 % LAB HEMETOLOGY METHOD 07/02/2025 4:58 AM [facility] Monocytes Relative 5.7 % LAB HEMETOLOGY METHOD 07/02/2025 4:58 AM [facility] Eosinophils Relative 0.0 % LAB HEMETOLOGY METHOD 07/02/2025 4:58 AM [facility] Basophils Relative 0.1 % LAB HEMETOLOGY METHOD 07/02/2025 4:58 AM [facility] Immature Granulocytes Relative 0.3 % LAB HEMETOLOGY METHOD 07/02/2025 4:58 AM [facility] Neutrophils Absolute 11.91(H) 1.50 - 7.00 K/mcL LAB HEMETOLOGY METHOD 07/02/2025 4:58 AM [facility] Lymphocytes Absolute 1.53 1.00 - 5.00 K/mcL LAB HEMETOLOGY METHOD 07/02/2025 4:58 AM [facility] Monocytes Absolute 0.82 0.20 - 1.00 K/mcL LAB HEMETOLOGY METHOD 07/02/2025 4:58 AM [facility] Eosinophils Absolute 0.00 0.00 - 0.50 K/mcL LAB HEMETOLOGY METHOD 07/02/2025 4:[address] [facility] Basophils Absolute 0.02 0.00 - 0.20 K/mcL LAB HEMETOLOGY METHOD 07/02/2025 4:[address] [facility] Immature Granulocytes Absolute 0.05(H) 0.00 - 0.03 K/[facility] LAB HEMETOLOGY METHOD 07/02/2025 4:[address] [facility] Blood Venous blood specimen / Unknown Venipuncture / Unknown 07/02/2025 4:32 AM EDT 07/02/2025 4:48 AM EDT us Glenna Mckinley MD LAB BLOOD ORDERABLES Final Re sult [facility] [address] [place] [address], * XR Chest 1 View (07/01/2025 5:47 AM EDT) Only the most recent of2 resultswithin the time period is included. Anatomical Region Laterality Modality Body Radiographic Jody ging 07/01/2025 8:37 AM EDT Impressions 07/01/2025 8:39 AM EDT Impression: 1. Satisfactory positioning of support tubes. 2. Developing bibasilar pleural-parenchymal processes. Telerad AYANA ([id number]) -------- FINAL REPORT -------- Dictated By: Maryana Swan Dictated Date: 07/01/2025 08:37 ET Assigned Physician: Maryana Swan Reviewed and Electronically Signed By: Maryana Swan Signed Date: 07/01/2025 08:39 ET Workstation ID: [id number] Transcribed By: Self Edit Transcribed Date: 07/01/2025 [...] the stomach, with the tip off the [id number]. The lung volumes are very low. There [...] as thestomach, with the tip off the [id number]. The lung volumes are very low. There is mild confluent opacity at the baseof the thorax bilaterally, silhouetting the diaphragm, appearing new orworse since the previous exam. The pulmonary vascularity is within normallimits. IMPRESSION: Impression: 1. Satisfactory positioning of support tubes. 2. Developing bibasilar pleural-parenchymal processes. Telerad PA ([id number]) -------- FINAL REPORT -------- Dictated By: Maryana Swan Dictated Date: 07/01/2025 08:37 ET Assigned Physician: Maryana Swan Reviewed and Electronically Signed By: Maryana Swan Signed Date: 07/01/2025 08:39 ET Workstation ID: [id number] Transcribed By: Self Edit Transcribed Date: 07/01/2025 08:37 ET us Glenna Mckinley MD IMG XR PROCEDURES Final Resul t * Triglyceride Monitoring (07/01/2025 4:25 AM EDT) Triglycerides 145 0 - 150 mg/dL LAB CHEMISTRY METHOD 07/01/2025 5:40 AM EDT [facility] Blood Venous blood specimen / Unknown Venipuncture / Unknown 07/01/2025 4:25 AM EDT 07/01/2025 5:06 AM EDT us Glenna Mckinley MD LAB BLOOD ORDERABLES Final Re sult [facility] [address] [place] [address], * Hepatic function panel (07/01/2025 4:25 AM [...] 5:[address] [facility] Bilirubin, Indirect 0.4 0.0 - 1.1 mg/dL LAB CHEMISTRY METHOD 07/01/2025 5:40 AM [facility] ALT (SGPT) 26 10 - 60 unit/L LAB CHEMISTRY METHOD 07/01/2025 5:40 AM [facility] AST (SGOT) 17 10 - 42 unit/L LAB CHEMISTRY METHOD 07/01/2025 5:[address] [facility] Alkaline Phosphatase 72 42 - 121 unit/L LAB CHEMISTRY METHOD 07/01/2025 5:40 AM [facility] Blood Venous blood specimen / Unknown Venipuncture / Unknown 07/01/2025 4:25 AM EDT 07/01/2025 5:06 AM EDT us Glenna Mckinley MD LAB BLOOD ORDERABLES Final Re sult [facility] [address] [place] [address], [place] [phone] * Transfuse Plasma (06/30/2025 6:54 PM EDT) Only the most recent of2 resultswithin the time period is included. us Glenna Mckinley MD BLOOD TRANSFUSION ORDERABLES Final [...] Final Result [facility] [address] [place] [address], [place] [phone] * Type and screen (06/30/2025 3:27 PM [...] ORDERABLE S Final Result Performing Organization Address [facility]/ZIP Co de Phone Number [facility] [address] [place] [address], * ECG 12 lead (06/30/2025 12:48 PM EDT) Ventricular Rate ECG 70 BPM GEMUSE Atrial Rate 70 BPM GEMUSE P-R Interval 168 ms GEMUSE QRS Duration 104 ms GEMUSE Q-T Interval 452 ms GEMUSE QTc 488 ms GEMUSE P Wave [place] 43 degrees GEMUSE R [place] 33 degrees GEMUSE T [place] 62 degrees GEMUSE ECG Interpretation Normal sinus rhythm Nonspecific ST and T wave abnormality Prolonged QT Abnormal ECG No previous ECGs available Confirmed by JEANETTE HARPER ([id number]) on 07/01/2025 2:03:27 PM GEMUSE 06/30/2025 12:4 8 PM EDT 07/01/2025 2:03 PM EDT Glenna Mckinley MD ECG ORDERABLES Final Result Performing Organization Address City/[facility] Co de Phone Number GEMUSE * Prepare Plasma: 2 Units (06/30/2025 11:38 AM EDT) Product Code [id number] 06/30/2025 6:[address] [facility] Unit Number [id number] 06/30/20 6:[address] [facility] Dispense Status Transfused 06/30/2025 6:[address] [facility] Unit ABO Rh APOS 06/30/2025 6:[address] [facility] Unit Expiration Date Time [id number] 06/30/2025 6:[address] [facility] Unit Blood Type 6200 06/30/2025 6:[address] [facility] Product Code [id number] 06/30/2025 5:[address] [facility] Unit Number [id number] 06/30/20 5:[address] [facility] Dispense Status Transfused 06/30/2025 5:[address] [facility] Unit ABO Rh APOS 06/30/2025 5:[address] [facility] Unit Expiration Date Time [id number] 06/30/2025 5:[address] [facility] Unit Blood Type 6200 06/30/2025 5:[address] [facility] Blood Venous blood specimen / Unknown 06/30/2025 11:38 AM EDT Glenna Mckinley MD BLOOD BANK PRODUCT ORDERABLES Final Result Performing Organization Address City/[facility]/ZIP Co de Phone Number [facility] [address] [place] [address], * Activated partial thromboplastin time (06/30/2025 11:25 AM EDT) aPTT 31.9 24.1 - 39.3 sec LAB COAGULATION METHOD 06/30/2025 11:[address] [facility] Blood Venous blood specimen / Unknown Venipuncture / Unknown 06/30/2025 11:25 AM EDT 06/30/2025 11:32 AM EDT Pamela [facility]A LAB BLOOD ORDERABLES Fin al Result [facility] [address] [place] [address], * Prothrombin time with INR (06/30/2025 11:25 AM EDT) Protime 11.2 10.6 - 13.9 sec LAB COAGULATION METHOD 06/30/2025 11:[address] [facility] INR 0.9 LAB COAGULATION METHOD 06/30/2025 11:[address] [facility] Blood Venous blood specimen / Unknown Venipuncture / Unknown 06/30/2025 11:25 AM EDT 06/30/2025 11:32 AM EDT Pamela [facility] LAB BLOOD ORDERABLES Chet al Result [facility] [address] [place] [address], * XR Abdomen 1 View (06/30/2025 10:57 [...] Signed Date: 06/30/2025 11:04 ET Workstation ID: [id number] Transcribed By: Self Edit Transcribed Date: 06/30/2025 [...] Signed Date: 06/30/2025 11:04 ET Workstation ID: [id number] Transcribed By: Self Edit Transcribed Date: 06/30/2025 11:02 ET Pamela PIÑA IMG XR PROCEDURES Final Result * ED INTUBATION (06/30/2025 10:44 AM EDT) Narrative Dinesh Nam MD - 06/30/2025 10:44 AM EDT Dinesh Nam MD 07/01/2025 5:41 PM Intubation Date/Time: 06/30/2025 10:44 AM Performed by: Dinesh Nam MD Authorized by: Dinesh Nam MD Consent: Consent obtained: Written and emergent situation Consent given by: Patient Risks, benefits, and alternatives were discussed: yes Risks discussed: Hypoxia and aspiration Alternatives discussed: No treatment and delayed treatment Hersey protocol: Procedure explained and questions answered to [...] Final Result from Last 3 Months Insurance [facility] Advance Directives Documents on File Type Date Recorded 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 Care Teams Price Analyst Relationship Specialty Start Date End Date Kallie Sol MD PCP - General Internal Medicine 01/09/12
== END 2025-09-07 14:58 | disposition home or self-care (01) ==
LOC: HO.HMCC 12:17
PROVIDERS: PCP Internal Medicine; Visit Provider Internal Medicine
DX: I10 Essential (primary) hypertension (principal); E78.5 Hyperlipidemia, unspecified; R73.9 Hyperglycemia, unspecified; I63.9 Cerebral infarction, unspecified

== ENCOUNTER 2025-09-18 09:16 | Day surgery (SDC) | payer OTHER, SELFPAY ==
--- OUTSIDE RECORDS SUMMARY | 2025-09-15 16:00 | XMS_ITS | Clinical Summary ---
Author Organization [facility] Address [address] [place] [address] Phone Care Team Providers Care Director Of Scout Work Name Role Phone Kallie Sol MD Primary [...] - 07/02/2025 3:20 PM EDT Hospital Encounter [facility] ICU [address] [place] [id number] Dinesh Birmingham MD Bonacum, Julia T, MD [...] of2 resultswithin the time period is included. [facility] Signature Phosphorus 3.4 2.5 - 4.5 mg/dL LAB CHEMISTRY METHOD 07/02/2025 5:13 AM EDT [facility] Blood Venous blood specimen / Unknown Venipuncture / Unknown 07/02/2025 4:33 AM EDT 07/02/2025 4:48 AM EDT us Glenna Mckinley MD LAB BLOOD ORDERABLES Final Re sult Performing Organization Address City/[facility]/ZIP Co de Phone Number [facility] [address] [place] [address], [place] [phone] * Magnesium (07/02/2025 4:33 AM EDT) Only the most recent of3 resultswithin the time period is included. Magnesium 2.5 1.9 - 2.6 mg/dL LAB CHEMISTRY METHOD 07/02/2025 5:13 AM EDT [facility] Blood Venous blood specimen / Unknown Venipuncture / Unknown 07/02/2025 4:33 AM EDT 07/02/2025 4:48 AM EDT Glenna Mckinley MD LAB BLOOD ORDERABLES Final Re sult Performing Organization Address [facility] Co de Phone Number [facility] [address] [place] [address], [place] [phone] * (ABNORMAL) Calcium, ionized (07/02/2025 4:33 AM EDT) Only the most recent of2 resultswithin the time period is included. Calcium Ionized 4.39(L) 4.50 - 5.30 mg/dL 07/02/2025 5:01 AM EDT [facility] Blood Venous blood specimen / Unknown Venipuncture / Unknown 07/02/2025 4:33 AM EDT 07/02/2025 4:48 AM EDT us Glenna Mckinley MD LAB BLOOD ORDERABLES Final Re sult Performing Organization Address City/[facility]/ZIP Co de Phone Number [facility] [address] [place] [address], [place] [phone] * (ABNORMAL) Basic metabolic panel (07/02/2025 4:33 [...] MD LAB BLOOD ORDERABLES Final Re sult [facility] [address] [place] [address], [place] [phone] * (ABNORMAL) CBC auto differential (07/02/2025 4:32 AM EDT) Only the most recent of3 resultswithin the time period is included. WBC 14.3(H) 4.8 - 10.8 K/mcL LAB HEMETOLOGY METHOD 07/02/2025 4:58 AM EDT [facility] RBC 4.10(L) 4.50 - 5.50 M/mcL LAB HEMETOLOGY METHOD 07/02/2025 4:58 AM EDT [facility] Hemoglobin 11.8(L) 13.5 - 17.5 g/dL LAB HEMETOLOGY METHOD 07/02/2025 4:58 AM EDT [facility] Hematocrit 36.2(L) 42.0 - 54.0 % LAB HEMETOLOGY METHOD 07/02/2025 4:58 AM EDT [facility] MCV 88.9 79.0 - 98.0 FL LAB HEMETOLOGY METHOD 07/02/2025 4:58 AM EDT [facility] MCH 29.0 27.0 - 32.0 pcg LAB HEMETOLOGY METHOD 07/02/2025 4:58 AM EDT [facility] MCHC 32.6 32.0 - 37.0 g/dL LAB HEMETOLOGY METHOD 07/02/2025 4:58 AM EDT [facility] RDW 13.2 11.0 - 15.0 % LAB HEMETOLOGY METHOD 07/02/2025 4:58 AM EDT [facility] Platelets 280 130 - 400 K/mcL LAB HEMETOLOGY METHOD 07/02/2025 4:58 AM EDT [facility] MPV 9.6 7.0 - 11.0 FL [...] AM [facility] Lymphocytes Absolute 1.53 1.00 - 5.00 K/mcL LAB HEMETOLOGY METHOD 07/02/2025 4:58 AM [facility] Monocytes Absolute 0.82 0.20 - 1.00 K/mcL LAB HEMETOLOGY METHOD 07/02/2025 4:58 AM [facility] Eosinophils Absolute 0.00 0.00 - 0.50 K/mcL LAB HEMETOLOGY METHOD 07/02/2025 4:58 AM EDT [facility] Basophils Absolute 0.02 0.00 - 0.20 K/mcL LAB HEMETOLOGY METHOD 07/02/2025 4:58 AM EDT [facility] Immature Granulocytes Absolute 0.05(H) 0.00 - 0.03 K/[facility] LAB HEMETOLOGY METHOD 07/02/2025 4:58 AM EDT [facility] Blood Venous blood specimen / Unknown Venipuncture / Unknown 07/02/2025 4:32 AM EDT 07/02/2025 4:48 AM EDT us Glenna Mckinley MD LAB BLOOD ORDERABLES Final Re sult [facility] [address] [place] [address], * XR Chest 1 View (07/01/2025 5:47 AM EDT) Only the most recent of2 resultswithin the time period is included. Anatomical Region Laterality Modality Body Radiographic Jody ging 07/01/2025 8:37 AM EDT Impressions 07/01/2025 8:39 AM EDT Impression: 1. Satisfactory positioning of support tubes. 2. Developing bibasilar pleural-parenchymal processes. Telerad AYANA ([id number]) -------- FINAL REPORT -------- Dictated By: Maryana Swan Dictated Date: 07/01/2025 08:37 ET Assigned Physician: Maryana Swan Reviewed and Electronically Signed By: Maryana Swan Signed Date: 07/01/2025 08:39 ET Workstation ID: [id number] Transcribed By: Self Edit Transcribed Date: 07/01/2025 [...] the stomach, with the tip off the [id number]. The lung volumes are very low. There [...] as thestomach, with the tip off the [id number]. The lung volumes are very low. There is mild confluent opacity at the baseof the thorax bilaterally, silhouetting the diaphragm, appearing new orworse since the previous exam. The pulmonary vascularity is within normallimits. IMPRESSION: Impression: 1. Satisfactory positioning of support tubes. 2. Developing bibasilar pleural-parenchymal processes. Telerad PA ([id number]) -------- FINAL REPORT -------- Dictated By: Maryana Swan Dictated Date: 07/01/2025 08:37 ET Assigned Physician: Maryana Swan Reviewed and Electronically Signed By: Maryana Swan Signed Date: 07/01/2025 08:39 ET Workstation ID: [id number] Transcribed By: Self Edit Transcribed Date: 07/01/2025 08:37 ET us Glenna Mckinley MD IMG XR PROCEDURES Final Resul t * Triglyceride Monitoring (07/01/2025 4:25 AM EDT) Triglycerides 145 0 - 150 mg/dL LAB CHEMISTRY METHOD 07/01/2025 5:40 AM EDT [facility] Blood Venous blood specimen / Unknown Venipuncture / Unknown 07/01/2025 4:25 AM EDT 07/01/2025 5:06 AM EDT us Glenna Mckinley MD LAB BLOOD ORDERABLES Final Re sult [facility] [address] [place] [address], * Hepatic function panel (07/01/2025 4:25 AM EDT) Total Protein 6.9 6.0 - 8.0 g/dL LAB CHEMISTRY METHOD 07/01/2025 5:40 AM EDT [facility] Albumin 3.9 3.2 - 5.0 g/dL LAB CHEMISTRY METHOD 07/01/2025 5:40 AM EDT [facility] Total Bilirubin 0.5 0.0 - 1.4 mg/dL LAB CHEMISTRY METHOD 07/01/2025 5:40 AM EDT [facility] Bilirubin, Direct 0.1 0.0 - 0.3 mg/dL LAB CHEMISTRY METHOD 07/01/2025 5:40 AM T [facility] Bilirubin, Indirect 0.4 0.0 - 1.1 mg/dL LAB CHEMISTRY METHOD 07/01/2025 5:40 AM [facility] ALT (SGPT) 26 10 - 60 unit/L LAB CHEMISTRY METHOD 07/01/2025 5:40 AM [facility] AST (SGOT) 17 10 - 42 unit/L LAB CHEMISTRY METHOD 07/01/2025 5:40 AM T [facility] Alkaline Phosphatase 72 42 - 121 unit/L LAB CHEMISTRY METHOD 07/01/2025 5:40 AM [facility] Blood Venous blood specimen / Unknown Venipuncture / Unknown 07/01/2025 4:25 AM EDT 07/01/2025 5:06 AM EDT us Glenna Mckinley MD LAB BLOOD ORDERABLES Final Re sult [facility] [address] [place] [address], [place] [phone] * Transfuse Plasma (06/30/2025 6:54 PM EDT) Only the most recent of2 resultswithin the time period is included. us Glenna Mckinley MD BLOOD TRANSFUSION ORDERABLES Final Result * (ABNORMAL) POCT Glucose, blood (06/30/2025 6:35 PM EDT) Glucose POCT 127(H) 70 - 100 mg/dL 06/30/2025 6:35 PM EDT [facility] Blood Capillary blood specimen / Unknown 06/30/2025 6:35 PM EDT 06/30/2025 7:05 PM EDT Glenna Mckinley MD LAB POINT OF CARE TE ST DOCKED DEVICE UNSOLICITED RESULTS Final Result [facility] [address] [place] [address], [place] [phone] * Type and screen (06/30/2025 3:27 PM EDT) ABO Group O 06/30/2025 5:22 PM EDT [facility] Rh Type Positive 06/30/2025 5:22 PM EDT [facility] Antibody Screen Negative 06/30/2025 5:22 PM EDT [facility] Blood Venous blood specimen / Unknown Venipuncture / Unknown 06/30/2025 3:27 PM EDT 06/30/2025 3:33 PM EDT us Glenna Mckinley MD LAB BLOOD BANK TEST ORDERABLE S Final Result Performing Organization Address [facility]/ZIP Co de Phone Number [facility] [address] [place] [address], * ECG 12 lead (06/30/2025 12:48 PM EDT) Ventricular Rate ECG 70 BPM GEMUSE Atrial Rate 70 BPM GEMUSE P-R Interval 168 ms GEMUSE QRS Duration 104 ms GEMUSE Q-T Interval 452 ms GEMUSE QTc 488 ms GEMUSE P Wave Thompson 43 degrees GEMUSE R Thompson 33 degrees GEMUSE T Thompson 62 degrees GEMUSE ECG Interpretation Normal sinus rhythm Nonspecific ST and T wave abnormality Prolonged QT Abnormal ECG No previous ECGs available Confirmed by JEANETTE HARPER ([id number]) on 07/01/2025 2:03:27 PM GEMUSE 06/30/2025 12:4 8 PM EDT 07/01/2025 2:03 PM EDT Glenna Mckinley MD ECG ORDERABLES Final Result Performing Organization Address City/[facility] Co de Phone Number GEMUSE * Prepare Plasma: 2 Units (06/30/2025 11:38 AM EDT) Product Code [id number] 06/30/2025 6:40 PM EDT [facility] Unit Number [id number] 06/30/20 6:40 PM EDT [facility] Dispense Status Transfused 06/30/2025 6:40 PM EDT [facility] Unit ABO Rh APOS 06/30/2025 6:40 PM EDT [facility] Unit Expiration Date Time [id number] 06/30/2025 6:40 PM EDT [facility] Unit Blood Type 6200 06/30/2025 6:40 PM EDT [facility] Product Code [id number] 06/30/2025 5:45 PM EDT [facility] Unit Number [id number] 06/30/20 5:45 PM EDT [facility] Dispense Status Transfused 06/30/2025 5:45 PM EDT [facility] Unit ABO Rh APOS 06/30/2025 5:45 PM EDT [facility] Unit Expiration Date Time [id number] 06/30/2025 5:45 PM EDT [facility] Unit Blood Type 6200 06/30/2025 5:45 PM EDT [facility] Blood Venous blood specimen / Unknown 06/30/2025 11:38 AM EDT Glenna Mckinley MD BLOOD BANK PRODUCT ORDERABLES Final Result Performing Organization Address City/[facility]/ZIP Co de Phone Number [facility] [address] [place] [address], * Activated partial thromboplastin time (06/30/2025 11:25 AM EDT) aPTT 31.9 24.1 - 39.3 sec LAB COAGULATION METHOD 06/30/2025 11:44 AM EDT [facility] Blood Venous blood specimen / Unknown Venipuncture / Unknown 06/30/2025 11:25 AM EDT 06/30/2025 11:32 AM EDT Pamela PIÑA LAB BLOOD ORDERABLES Fin al Result [facility] [address] [place] [address], * Prothrombin time with INR (06/30/2025 11:25 AM EDT) Protime 11.2 10.6 - 13.9 sec LAB COAGULATION METHOD 06/30/2025 11:44 AM EDT [facility] INR 0.9 LAB COAGULATION METHOD 06/30/2025 11:44 AM EDT [facility] Blood Venous blood specimen / Unknown Venipuncture / Unknown 06/30/2025 11:25 AM EDT 06/30/2025 11:32 AM EDT Pamela PIÑA LAB BLOOD ORDERABLES Chet al Result [facility] [address] [place] [address], * XR Abdomen 1 View (06/30/2025 10:57 [...] Signed Date: 06/30/2025 11:04 ET Workstation ID: [id number] Transcribed By: Self Edit Transcribed Date: 06/30/2025 [...] Signed Date: 06/30/2025 11:04 ET Workstation ID: [id number] Transcribed By: Self Edit Transcribed Date: 06/30/2025 [...] Alternatives discussed: No treatment and delayed treatment [place] protocol: Procedure explained and questions answered to [...] Final Result from Last 3 Months Insurance [facility] Advance Directives Documents on File Type Date 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 Care Teams Director Of Scout Work Relationship Specialty Start Date End Date Kallie Sol MD PCP - General Internal Medicine 01/09/12
--- NOTE | 2025-09-16 10:39 | HO.ANESPROP2 ---
Documented by User: Madiha Zuniga NP 09/16/25 10:57 HPI - Anesthesia Eval Consult details Narrative: 54 yr old male for colonoscopy Medically cleared by PCP for above procedure 08/2025 visit, okay to hold ASA & plavix for procedure. 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 H/O CVA: 03/2024 presented to [facility] with symptoms, work up revealed bilateral acute ischemic infarctions with underlying similar chronic ischemic infarctions and CTA revealing multiple areas of arterial stenosis. Pt denies following with neuro. 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 H/O cocaine use Tobacco use [facility] Active Problems Active Problems: All Active Problems (Updated 09/07/25 @ 19:17 by Eleonora Hector MD) Morbid obesity (Acute) Anemia (Acute) Hyperglycemia (Acute) Dysphagia (Acute) Left-sided muscle weakness (Acute) Maxillary sinus mass (Acute) Myocardial infarction (Acute) Cerebrovascular accident (Acute) Annual physical exam (Acute) HTN (hypertension) (Acute) Anxiety and depression (Acute) Hyperlipidemia (Acute) Past Medical History Medical History Cerebrovascular accident Hyperglycemia Alcohol use disorder Cocaine use disorder Myocardial infarction Annual physical exam Hyperlipidemia HTN (hypertension) Anxiety and depression Family History Family History Father HTN (hypertension) Stroke Mother Alcoholism Maternal Grandfather No problems noted. Maternal Grandmother No problems noted. Paternal Grandfather No problems noted. Paternal Grandmother Stroke Surgical History Surgical History S/P cardiac cath History of meniscal tear Social History Social History Household Members: Family Housing: Apartment Do you presently have visiting nurse or other home services: No Alcohol intake: current Alcohol intake frequency: does not drink Alcohol type: beer Patient Tobacco Use Status: Former Tobacco user Tobacco use type: Cigarette Cigarettes Per Day: 10 Years Smoked: 20 e-Cigarette/Vaping Use: Never Used [employer] service: No Current occupational status: employed Cognitive needs: No Hearing needs: No Vision needs: Yes Meds Allergies Allergy/AdvReac Type Severity Reaction Status Date / Time lisinopril Allergy Severe Anaphylaxis Verified 09/18/25 10:41 citalopram AdvReac Unknown diarrhea Verified 09/18/25 10:41 Exam Narrative Narrative: ECHO 06/2025 Conclusions: - 1. Hyperdynamic LV ejection fraction of greater than 70% 2. Calcific mitral and aortic valve changes noted with normal cardiac valvular Dopplers 3. Upper limits of normal ascending aortic size 4. No gross pericardial effusion EKG 12/2024 Vent. Rate : 59 BPM Atrial Rate : 59 BPM P-R Int : 152 ms QRS Dur : 96 ms QT Int : 438 ms P-R-T Axes : 46 29 168 degrees QTcB Int : [address] & T wave abnormality, consider lateral ischemia Abnormal ECG When compared with ECG of 10-Apr-2024 10:03, T wave inversion less evident in Lateral leads Documented by User: Ophelia Cantu MD 09/18/25 12:10 [facility] Past Medical History Medical History Cerebrovascular accident Hyperglycemia Alcohol use disorder Cocaine use disorder Myocardial infarction Annual physical exam Hyperlipidemia HTN (hypertension) Anxiety and depression Family History Family History Father HTN (hypertension) Stroke Mother Alcoholism Maternal Grandfather No problems noted. Maternal Grandmother No problems noted. Paternal Grandfather No problems noted. Paternal Grandmother Stroke Surgical History Surgical History S/P cardiac cath History of meniscal tear History of Problems with Anesthesia: No Social History Social History Household Members: Family Housing: Apartment Do you presently have visiting nurse or other home services: No Alcohol intake: current Alcohol intake frequency: does not drink Alcohol type: beer Patient Tobacco Use Status: Former Tobacco user Tobacco use type: Cigarette Cigarettes Per Day: 10 Years Smoked: 20 e-Cigarette/Vaping Use: Never Used service: No Current occupational status: employed Cognitive needs: No Hearing needs: No Vision needs: Yes Meds Allergies Allergy/AdvReac Type Severity Reaction Status Date / Time lisinopril Allergy Severe Anaphylaxis Verified 09/18/25 10:41 citalopram AdvReac Unknown diarrhea Verified 09/18/25 10:41 Exam Airway Mallampati Class: III TM Dist: >3cm Neck ROM: Full Loose/Missing/Broken Teeth: Yes and Lower Heart: RRR Lungs: CTA Assessment and Plan Assessment Anesthesia Assessment: Anesthesia Plan Discussed and Chart Reviewed Final Anesthetic Review History of Problems with Anesthesia: No NPO: Yes ASA Class: III Final Preanesthetic Review: Meds/Allgs Chart Reviewed, Consent Obtained/Reviewed and Anes Risks/Benef Reviewed Patient Risk: Intermediate Procedure Risk: Low Anesthetic Plan Anesthetic Plan: MAC: Disposition: Standard PACU
[2025-09-16 13:36] VITALS: BMI 39.0
[2025-09-16 14:15] VITALS: BMI 39.8
[2025-09-18] MEDS: Lactated Ringers 1,000 ML 100 ML IVCONT (10:57)
[2025-09-18 11:03] VITALS: BP 148/77; PULSE 61; RESP 18; TEMP 36.7; O2SAT 99
[2025-09-18 11:12] LABS: Cannabinoid Screen Urine POSITIVE (Not Detect)
--- NOTE | 2025-09-18 12:08 | MHC.SHP ---
Pre-Procedural Eval Section A - 24 Hr Update-Section A only Date of Service: 09/18/25 The patient is an INPATIENT: No Changes since office visit: No Cold of Flu in the past 2 weeks, No New Medical Problems, No Changes in Medication and No Patient answered all questions The patient has been examined within 24 hours of the surgical procedure. The History & Physical has been completed within 30 days and I have reviewed it.: Yes Section B - Complete if H&P > 30 days Chief Complaint: screening Allergies: Allergies Allergy/AdvReac Type Severity Reaction Status Date / Time lisinopril Allergy Severe Anaphylaxis Verified 09/18/25 10:41 citalopram AdvReac Unknown diarrhea Verified 09/18/25 10:41 Plan I have reviewed the history and physical and performed a pertinent physical examination on my patient. No changes have occurred unless specified. Time Spent With Patient Time: Total time managing care of this patient today ____ minutes.
[2025-09-18 13:23] VITALS: BP 148/84; PULSE 57; RESP 18; TEMP 36.1; O2SAT 96
[2025-09-18 13:38] VITALS: BP 177/99; PULSE 54; RESP 16; TEMP 36.2; O2SAT 96
--- NOTE | 2025-09-18 23:49 | OP_ITS ---
DATE OF SERVICE: 09/18/2025 SURGEON: Ike Scanlon MD INDICATIONS: Colon cancer screening. PREOPERATIVE DIAGNOSIS: POSTOPERATIVE DIAGNOSIS: PROCEDURE PERFORMED: Colonoscopy to the cecum with snare polypectomy. ESTIMATED BLOOD LOSS: COMPLICATIONS: ANESTHESIA: Monitored anesthesia care. ASSISTANTS: SPECIMENS: PROCEDURE DESCRIPTION: History and physical was performed. The risks and benefits of the procedure were explained to the patient. Informed consent was obtained. The patient was placed in left lateral decubitus position. A digital rectal exam was performed, was found to be normal. The Olympus pediatric video colonoscope was introduced into the rectum and advanced to the cecum. The cecum was identified by transillumination, palpation, and identification of ileocecal valve. Examination was performed. The scope was removed. He tolerated the procedure well and was taken to recovery room in stable condition. FINDINGS: There was diverticulosis present throughout the colon. Two polyps were identified. The first in the cecum measured approximately 5 mm and was removed with a snare and recovered via suction. The second at 50 cm measured approximately 12 mm and was removed in piecemeal manner and recovered with a Cheng net and by suction. Retroflexed examination was normal. No other polyps were identified. IMPRESSION: Colon polyps. RECOMMENDATION: Follow up the biopsy results. MD ELAN Ibarra/PENGL / [id number]
== END 2025-09-18 14:07 | disposition home or self-care (01) ==
PROVIDERS: Nurse Practitioner; PCP Internal Medicine; Visit Provider Internal Medicine Gastroenterology
PROC: 0DJD8ZZ Inspection of Lower Intestinal Tract, Via Natural or Artificial Opening Endoscopic (ICD-10-PCS; CPT 45378; principal; 2025-09-18 11:30)
DX: Z12.11 Encounter for screening for malignant neoplasm of colon (principal); D12.0 Benign neoplasm of cecum; D12.5 Benign neoplasm of sigmoid colon; K57.30 Diverticulosis of large intestine without perforation or abscess without bleeding; I10 Essential (primary) hypertension; E78.5 Hyperlipidemia, unspecified; I25.10 Atherosclerotic heart disease of native coronary artery without angina pectoris; I25.2 Old myocardial infarction; R73.9 Hyperglycemia, unspecified; Z86.73 Personal history of transient ischemic attack (TIA), and cerebral infarction without residual deficits; F41.8 Other specified anxiety disorders; Z79.1 Long term (current) use of non-steroidal anti-inflammatories (NSAID); Z79.82 Long term (current) use of aspirin; Z79.899 Other long term (current) drug therapy; Z88.8 Allergy status to other drugs, medicaments and biological substances; F12.90 Cannabis use, unspecified, uncomplicated; Z87.891 Personal history of nicotine dependence
CPT/HCPCS: 45385; 80307; 88305; J2003; J2704